=== PATIENT | male | born 1960 | race Caucasian/White ===

== ENCOUNTER 2017-05-16 13:24 | Emergency (ER) | payer OTHER ==
[~2017-05-16] VITALS: Ht 172.7 cm; Wt 98.0 kg
[~2017-05-16 13:24] MED LIST: ESCI1TAB10 PO; FOLI1TAB8 PO; GLIP5TAB3 PO; LPR25 PO; MAGN400T24 PO; METF1000 PO; OMEP20TA PO; TAMS0.4C59 PO; THIA100T10 PO
[2017-05-16 13:27] VITALS: TEMP 36.4; Ht 172.7 cm; Wt 98.0 kg
--- NOTE | 2017-05-16 14:35 | DIAGNOSTIC IMAGING REPORT ---
L-SPINE MIN 4 VIEWS ROUTINE CLINICAL HISTORY: LEFT LOW BACK, BUTTOCK, HIP PAIN, THIGH NUMB COMPARISON STUDY: No previous studies for comparison. FINDINGS: There is a mild spinal curvature convex to the left. There are bilateral total hip arthroplasties. No acute fractures or traumatic subluxations are visualized. There are moderately advanced degenerative changes in the lower thoracic spine and thoracal lumbar junction. Mild degenerative changes are present within the mid to lower lumbar spine. No destructive lesions are evident. IMPRESSION: 1. No acute fractures or traumatic subluxations 2. Degenerative changes Electronically signed by: Khalif Santiago M.D. 05/16/2017 2:34 PM Dictated Date/Time: 05/16/2017 2:32 PM
--- NOTE | 2017-05-16 14:36 | DIAGNOSTIC IMAGING REPORT ---
L PELVIS/UNILATERAL HIP 2-3VIEWS HISTORY: 57 years-old Male LEFT HIP/THIGH PAIN, S/P SANTOS acute left hip pain COMPARISON: CT abdomen and pelvis 05/23/2013 TECHNIQUE: AP view of the pelvis with 2 views of the left hip FINDINGS: The bony pelvis appears intact without pelvic ring fracture identified. Dystrophic appearing calcifications involve the ischial tuberosities bilaterally at the hamstring attachment sites. Bilateral total hip arthroplasties are in place with associated periarticular heterotopic ossifications. No evidence of hardware complication or malalignment. No acute fracture or subluxation is identified. IMPRESSION: Bilateral total hip arthroplasties in place without evidence of hardware complication, acute bony fracture or subluxation. The above report was generated using voice recognition software. It may contain grammatical, syntax or spelling errors. Electronically signed by: Jun Field M.D. 05/16/2017 2:34 PM Dictated Date/Time: 05/16/2017 2:31 PM
[2017-05-16] MEDS ORDERED: LISI-725 PO (15:10)
[2017-05-16] MEDS ORDERED: PRED20TA PO (15:17)
--- NOTE | 2017-05-16 15:18 | EMERGENCY ROOM VISIT NOTE ---
ED Visit Note First contact with patient: 13:33 CHIEF COMPLAINT: Left low back and hip pain 6 months, worse times one week HISTORY OF PRESENT ILLNESS: Patient is a 57-year-old white male who presents to the emergency department for evaluation of left low back and hip pain. He's had symptoms for about 6 months, but been worse in the last week. He is status post bilateral total hip arthroplasties performed a [address] Banda[address] He has had no problems with the hips until the left hip began to bother him about 6 months ago. He reports that he has been limping , and has had to start using a cane. He notes a sharp pain in his left low back, and lateral aspect of his left hip. It is particularly noticeable with position changes, like standing and sitting. He has difficulty getting comfortable, and has a hard time getting up and moving after he has been stationary for some time. He also notes numbness in the top of his left thigh, that does not extend below the knee. He denies any tingling or weakness into the lower aspect of the leg. He denies any pain in his left buttocks or pain that runs posterior leads down the left leg. He denies any left groin pain. He denies any bowel or bladder incontinence. He does report a history of chronic pain due to gout/OA/RA. He has been on Vicodin 10/325 mg tablets 4 times daily for over 10 years. This is prescribed by his primary care provider. He stopped this medication about 2 weeks ago because he felt like "it wasn't helping." He has tried taking just regular Tylenol for his hip pain without relief. He tried ice and positioning himself with pillows. He has been told in the past that he should not take NSAIDs as he has a history of acute renal failure which was attributed, in part, to NSAID use. Patient denies any injury or any unusual activity before the onset of the pain. He rates his discomfort a 4/10 presently. REVIEW OF SYSTEMS: Review of systems as per HPI. All other systems reviewed were negative. 10 systems reviewed. PMH: Electronic medical records are reviewed and summarized as above/below. See Problem List. SOCIAL HISTORY: Patient lives at home. Smoker. Disabled. PHYSICAL EXAM: Vital Signs: Reviewed Nurse's notes. CONSTITUTIONAL: Patient is is a well-appearing 57-year-old white male who is awake and alert and in no acute distress. He ambulates with a slightly waddling , antalgic gait. INTEGUMENTARY: No lesions or rash, normal skin turgor. LYMPH: No lymphadenopathy. SPINE: Examination of the patient's back does not demonstrate any ecchymosis, abrasions or outward signs of trauma. No erythema, increased warmth or induration. Patient has midline discomfort to palpation over the low lumbar spine, primarily on the left, which does produce pain in the left low back and lateral aspect of the left hip. There is no pain over the SI joint or the sciatic notch. He has increased pain with range of motion including rotation and flexion. EXTREMITIES: Leg lengths are symmetrical. Well-healed surgical scars noted over the lateral aspect of the hips bilaterally. Negative logroll bilaterally. Normal strength including dorsi-flexion and plantar flexion of the great toes and ankles and flexion and extension of the knees and flexion of the hips. Negative bilateral straight leg raise testing. Lower extremity DTRs are equal and symmetrical bilaterally. Distal pulses are easily palpable. Sensation light touch is intact over the lower extremities bilaterally. EMERGENCY DEPARTMENT COURSE: The patient was seen and evaluated as above. Old records were reviewed. Lumbar spine, AP pelvis and left hip x-rays were obtained. He has mild arthritic changes of the lumbar spine without any acute pathology, left hip and AP pelvis demonstrate postsurgical changes, without evidence for acute fracture or hardware compromise. X-ray findings were reviewed with the patient. His exam appears more consistent with a lumbar radiculopathy, rather than being related to his hip or his prosthesis. His exam was not consistent with a trochanteric bursitis. Possibility of loosening of the hardware was entertained. He does not appear to have any infectious findings at this time. The patient has been on narcotics chronically for many years, he had stopped these about 2 weeks ago as he did not feel that they were helping with his chronic pain. He has been told that he should not use any NSAID medications due to his history of renal failure. He has used prednisone in the past, and states that it has been fairly efficacious. He would like to try this, which is reasonable, and I have discussed that he should check his blood sugars more frequently and monitored very closely while on the prednisone due to the potential for hyperglycemia. He expressed understanding of this and was agreeable. He will need close follow -up with his PCP and with his orthopedic surgeon for further care and evaluation. He certainly does not have any physical exam findings at this time that are suspicious for acute cord compression, cauda equina syndrome, epidural abscess or hematoma. He was discharged home with family in stable condition. Patient was reviewed with attending physician who also independently evaluated the patient. Medication reconciliation: I attest that I have personally reviewed the patient' s current medication list. Blood pressure screening: Patient was found to have a slightly elevated blood pressure due to circumstances. I do not believe that the patient requires hypertension monitoring. Patient was reviewed in the [facility] Prescription Drug Monitoring Program. He has received monthly supplies of Toone 10 mg tablets as he discussed, last prescription was filled in the beginning of April. L-SPINE MIN 4 VIEWS ROUTINE CLINICAL HISTORY: LEFT LOW BACK, BUTTOCK, HIP PAIN, THIGH NUMB COMPARISON STUDY: No previous studies for comparison. FINDINGS: There is a mild spinal curvature convex to the left. There are bilateral total hip arthroplasties. No acute fractures or traumatic subluxations are visualized. There are moderately advanced degenerative changes in the lower thoracic spine and thoracal lumbar junction. Mild degenerative changes are present within the mid to lower lumbar spine. No destructive lesions are evident. IMPRESSION: 1. No acute fractures or traumatic subluxations 2. Degenerative changes L PELVIS/UNILATERAL HIP 2-3VIEWS HISTORY: 57 years-old Male LEFT HIP/THIGH PAIN, S/P SANTOS acute left hip pain COMPARISON: CT abdomen and pelvis 05/23/2013 TECHNIQUE: AP view of the pelvis with 2 views of the left hip FINDINGS: The bony pelvis appears intact without pelvic ring fracture identified. Dystrophic appearing calcifications involve the ischial tuberosities bilaterally at the hamstring attachment sites. Bilateral total hip arthroplasties are in place with associated periarticular heterotopic ossifications. No evidence of hardware complication or malalignment. No acute fracture or subluxation is identified. IMPRESSION: Bilateral total hip arthroplasties in place without evidence of hardware complication, acute bony fracture or subluxation. Problem List Medical Problems: (1) Acute renal failure Status: Resolved (2) Arthritis Status: Chronic (3) Chronic pain syndrome Status: Chronic (4) Dehydration Status: Resolved (5) Depressive Disorder Nec Status: Chronic (6) Diabetes Status: Chronic (7) Diabetes Status: Resolved (8) GERD (gastroesophageal reflux disease) Status: Chronic (9) Gout Status: Chronic (10) Hypertension Status: Chronic (11) Hypoglycemia Status: Resolved (12) Intractable vomiting Status: Resolved (13) MRSA infection Status: Resolved (14) Rheumatoid Arthritis Status: Chronic Surgical Problems: (1) Hip Joint Replacement Status Status: Resolved Social History Problems: (1) Alcoholism Status: Resolved Current/Historical Medications Scheduled Escitalopram Oxalate (Lexapro), 20 MG PO DAILY Glipizide (Glucotrol), 5 MG PO BID Lisinopril (Zestril), 20 MG PO DAILY Metformin Hcl (Glucophage), 1,000 MG PO BID Omeprazole (Omeprazole), 20 MG PO DAILY Prednisone (Prednisone), 0 PO DAILY Allergies Coded Allergies: Morphine (Verified Adverse Reaction, Severe, PT BECOMES VERY CONFUSED, 05/16) Vital Signs Date Time Temp Pulse Resp B/P (MAP) Pulse Ox O2 Delivery O2 Flow Rate FiO2 05/16/17 15:54 77 16 148/89 97 05/16/17 13:27 36.4 89 18 150/95 96 Room Air Departure Information Impression Primary Impression: Left low back pain Additional Impression: Left hip pain Prescriptions Prednisone (Prednisone) 20 Mg Tab 0 PO DAILY, #18 TAB 3 DAILY FOR 3 DAYS, THEN 2 DAILY FOR 3 DAYS, THEN 1 DAILY FOR 3 DAYS. Prov: Yakelin Burgess PA 05/16/17 Referrals No Doctor, Assigned (PCP) Patient Instructions My [facility] Additional Instructions Prednisone: Once daily as instructed until the prescription is finished. It is best to take this earlier in the day as some patients note occasional difficulty falling asleep when taken in the late evening. Monitor your blood sugars closely while taking this medication. Acetaminophen(Tylenol) may be used for fever or pain. Use 1000mg every six hours as needed. Avoid using more than 3000mg in a 24 hour period. This medication can be taken if you need to drive, work, or perform activities which may be dangerous when taking narcotic pain medication. Ice compresses for 20 minutes at a time four times daily for 2-3 days. Use the your cane as needed. Rest and elevate your injury. Continue current medications. Return to the ER immediately for any numbness, tingling, severe pain, extreme swelling in the extremity or as needed. Follow-up with your primary care physician for further care and evaluation. You may require evaluation by a back specialist. Follow-up with your orthopedic surgeon for reassessment of your left hip pain and your hip replacement. Problem Qualifiers
--- NOTE | 2017-05-16 15:20 | EMERGENCY ROOM VISIT NOTE ---
ED Visit Note First contact with patient: 13:33 I did evaluate and examine this patient myself. I did guide management for the patient. I agree with the APC's assessment as discussed. Please see the APC's dictation for further details. I did independently review the x-rays. The patient is presenting with pain in his lower back pain to his head. There is no evidence of fracture or acute abnormality on hip radiograph. His symptoms seem consistent with radicular pain. He was advised follow closely with his orthopedic doctor and discharged with a prescription for prednisone. He will be sure to check his sugars regularly.
[2017-05-16 15:54] VITALS: BP 148/89; PULSE 77; O2SAT 97
[2017-11-18] MEDS ORDERED: INSU70IN2 SC ×2 (13:04)
[2017-11-18] MEDS ORDERED: DXY100 PO (13:04)
== END 2017-05-16 15:48 | disposition home or self-care (01) ==
LOC: C.EDB 13:26 → C.EDC 15:48
DX: M54.5 Low back pain (principal); M25.552 Pain in left hip; G89.4 Chronic pain syndrome; F17.200 Nicotine dependence, unspecified, uncomplicated; F32.9 Major depressive disorder, single episode, unspecified; E11.9 Type 2 diabetes mellitus without complications; K21.9 Gastro-esophageal reflux disease without esophagitis; I10 Essential (primary) hypertension; M06.9 Rheumatoid arthritis, unspecified; Z96.643 Presence of artificial hip joint, bilateral; Z79.84 Long term (current) use of oral hypoglycemic drugs

== ENCOUNTER 2018-06-24 10:08 | Inpatient (IN) ==
[2018-06-24] MEDS ORDERED: ASPIRIN CHEW 324 MG PO STA (10:34)
[2018-06-24] MEDS ORDERED: LISINOPRIL 20 MG TAB PO STA (10:34)
[2018-06-24] MEDS ORDERED: NITROGLYCERIN 2% OINTMENT 30GM TUBE EXT STA (10:34)
[2018-06-24] MEDS ORDERED: SODIUM CHLORIDE 0.9% 500 ML IV SCH (10:45)
[2018-06-24] MEDS ORDERED: LISINOPRIL 5 MG TAB PO ONE (10:49)
--- NOTE | 2018-06-24 10:57 | XRay Report ---
XR chest 1V portable HISTORY: Atypical Chest Pain COMPARISON: Chest 11/15/2017. FINDINGS: No pneumothorax. No pleural effusions. The lungs are clear. The heart is top normal in size . Old, healed right anterior rib fractures. IMPRESSION: No acute process. Electronically signed by: Demarco Luna M.D. 06/24/2018 10:56 AM
[2018-06-24 11:08] LABS: Basophils # (auto) 0.03 K/uL (0-0.2); Basophils % (auto) 0.4 %; Eosinophils # (auto) 0.11 K/uL (0-0.5); Eosinophils % (auto) 1.3 %; Hematocrit (blood only) 39.2 % (42-52); Hemoglobin 13.4 g/dL (14.0-18.0); Immature Granulocytes # (auto) 0.09 K/uL (0.00-0.02); Immature Granulocytes % (auto) 1.1 %; Lymphocytes # (auto) 1.71 K/uL (1.2-3.4); Lymphocytes % (auto) 20.8 %; Mean Corpuscular Hgb Conc 34.2 g/dL (32-36); Mean Corpuscular Volume 86.2 fL (80-100); Mean Platelet Volume 10.9 fL (7.4-10.4); Monocytes % (auto) 8.5 %; Neutrophils # (auto) 5.57 K/uL (1.4-6.5); Neutrophils % (auto) 67.9 %; Platelet Count 228 K/uL (130-400); RDW Coefficient of Variation 15.1 % (11.5-14.5); RDW Standard Deviation 47.3 fL (36.4-46.3); Red Blood Count 4.55 M/uL (4.7-6.1); White Blood Count 8.21 K/uL (4.8-10.8)
[2018-06-24 11:19] LABS: INR 0.9 (0.9-1.1); Partial Thromboplastin Ratio 0.8; Partial Thromboplastin Time 20.3 Seconds (21.0-31.0); Prothrombin Time 9.4 Seconds (9.0-12.0)
[2018-06-24 11:23] LABS: Alanine Aminotransferase 35 U/L (12-78); Albumin Level 3.5 gm/dl (3.4-5.0); Aspartate Aminotransferase 25 U/L (15-37); BUN Creatinine Ratio 12.1 (10-20); Blood Urea Nitrogen 16 mg/dl (7-18); Carbon Dioxide 20 mmol/L (21-32); Chloride 107 mmol/L (98-107); Creatinine Clr Calc Pharmacy 69.9 ml/min; Est GFR (African American) 66.7; Est GFR (Non-African American) 57.6; Glucose 250 mg/dl (70-99); Magnesium 1.5 mg/dl (1.8-2.4); Sodium 137 mmol/L (136-145)
[2018-06-24] MEDS ORDERED: MAGNESIUM OXIDE 400 MG TAB PO STA (11:27)
[2018-06-24 11:28] LABS: Alkaline Phosphatase 104 U/L (45-117); Bilirubin,Total 0.2 mg/dl (0.2-1); Globulin 3.4 gm/dl (2.5-4.0); Total Protein 6.9 gm/dl (6.4-8.2); Troponin I < 0.015 ng/ml (0-0.045)
--- NOTE | 2018-06-24 13:47 | History & Physical Report ---
Addendum entered and electronically signed by Carrie Kelley PA-C 14:32: Addendum (Blank) Addendum June 24, 2018 14:31 Addendum: D-Dimer elevated Will order CT per PE protocol and bilateral lower ext dopplers r/o DVT/PE Original Note: Date of Service June 24, 2018 Assessment & Plan (1) Atypical chest pain: In ED cardiac workup revealed troponin within normal limits and ECG without changes. He was hypertensive and placed on Nitropaste which improved pressure systolically to 150s He received 1 L IV fluid, ASA 324 mg, lisinopril 20 mg x1, Mag-Ox 80 mg p.o. Chest discomfort still present, described as "fatigue." We will admit for further cardiac workup to rule out ACS ddx including but not limited to: ACS, stable angina, PE, pleurisy, MSK, PUD -admit to med/surg telemetry -consult cardiology given atypical chest pain with cardiac risk factors: T2DM, tobacco abuse, HTN -trend cardiac markers -check D-Dimer r/o PE -echocardiogram -continue nitropaste for now -initiate ASA 81mg daily -will make NPO after midnight in event stress test performed -a1c, lipid panel in a.m. (2) Hypomagnesemia: -repleted with 800 of mag oxide orally -repeat mag levels in a.m. (3) DM type 2 (diabetes mellitus, type 2): -unknown A1C, will obtain in a.m. -spoke with glycemic pharmacist for recommendations -he took 70/30 this a.m. 65 units -will place on Lantus 45 Q12hr units per protocol and novolog sliding scale per protocol -adjust accordingly -on JAYLIN for renal protection (4) HTN (hypertension): -blood pressure elevated on admission -prescribed lisinopril 40mg daily; however he has cut in half to 20mg because he feels it makes him lightheaded -Is not always compliant -continue lisinopril for now and monitor (5) COPD (chronic obstructive pulmonary disease): -current no acute exacerbation -no taking any ICS or LABAS (6) Depression: -continue zoloft (7) Tobacco abuse: -currently + chewing tobacco, has quit smoking 6 months ago -nicoderm patch -encourage tobacco cessation (8) DVT prophylaxis: -heparin 5,000 units SQ Q8hr Disposition: D/C to home when able Follow up: PCP upon discharge Patient was seen in collaboration with Dr. Ray, please see addendum Starting 06/25/18 patient will be followed by Dr. Renteria History of Present Illness Chief Complaint: Chest pain x 2-3 weeks. Primary Care Provider: Shlomo Sorto PA-C This is a 58 year old male with significant past medical history of T2DM, HTN, COPD, depression, rheumatoid arthritis, tobacco abuse, history of EtOH abuse in past, history of MRSA bacteremia secondary to OM of spine who presents to [facility] ED secondary to left sided chest pain times 2-3 weeks. 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 He denies recent illness, f/c/s, dizziness, lightheaded, hemoptysis, MCANIR, n/v/d, abdominal pain, dysuria, hematuria, increased urg/freq with urination. Denies hx of CAD or FH of CAD. +Personal history of PE when hospitalized for bacteremia /OM. He was treated with Anticoagulation at time but currently does not take. States he is not always compliant with medication. He checks his bsg when he feels like it. BSG ranges from 60-180s, feels it is better on insulin regimen. Allergies Allergy/AdvReac Type Severity Reaction Status Date / Time morphine AdvReac Severe PT BECOMES Verified 06/24/18 12:17 VERY CONFUSED Home Medications Home Medications Medication Instructions Recorded Confirmed Type insulin NPH and regular human 65 units SUBCUT BID 06/24/18 06/24/18 History [Novolin 70/30 U-100 Insulin] lisinopril 20 mg PO DAILY 06/24/18 06/24/18 History metformin 1,000 mg PO BID 06/24/18 06/24/18 History sertraline 100 mg PO DAILY 06/24/18 06/24/18 History Past Med/Surg History Medical History History of pulmonary embolism when hospitalized for bacteremia and OM Rheumatoid arthritis Tobacco abuse COPD (chronic obstructive pulmonary disease) DM type 2 (diabetes mellitus, type 2) (Chronic) Depression (Chronic) Osteoarthritis (Chronic) MRSA bacteremia (Resolved) Hypertension (Chronic) GERD (gastroesophageal reflux disease) (Chronic) Surgical History History of shoulder surgery Right x 2 History of right hip replacement (Chronic) History of left hip replacement (Chronic) Family History Father Diabetes Lung disease emphysema Mother HTN (hypertension) Social History marital status: Current Living Situation: Alone current occupational status: disabled Other Information That Helps Us Care for You: No Feels Safe at Home: Yes Safety Concerns: Feels Safe At This Time Smoking Status: Current every day smoker Tobacco Type: cigarettes Cigarettes per Day: 25-30pack history Do You Dip or Chew Tobacco: Yes Smoking End Date: Quit smoking approx 6 months ago Second Hand Exposure: No Tobacco Cessation Education Requested by Patient: No Hx Alcohol Use: Yes Alcohol Intake Frequency: a few times a week Alcohol Intake Frequency Comment: 4 beers a week Hx Substance Use: No Beliefs That Will Affect Care: None Preferred Language: Bahraini Communication Ability: Effective Cigar Tobacco Processing Supervisor Required: No Review of Systems All systems reviewed & are unremarkable except as noted in HPI & below Physical Exam 2 Vital Signs (Past 24 Hours): Last Vital Signs Temp 36.3 C L 06/24/18 10:11 Pulse 93 H 06/24/18 12:28 Resp 20 06/24/18 12:28 BP 152/90 H 06/24/18 12:28 Pulse Ox 98 06/24/18 12:28 Physical Exam: Gen: WD/WN, M, unkempt in appearance, NAD, sitting up in bed, pleasant, conversing easily Head: Normocephalic, Atraumatic Eyes: Sclera normal, no conjunctival injection, PERRLA, EOMI ENT: Gross hearing intact, normal pharynx, mucous membranes moist Neck: supple, no adenopathy, No JVD, no bruit, Resp: Clear to auscultation b/l, no wheeze, rales, rhonchi. Pain reproduced with inspiration, Normal insp/exp effort, no accessory muscle use CV: Regular rate, regular rhythm, 1/6 HAKEEM noted cardiac base, no rub, gallop, or ectopy Abd: +BS x 4, soft, nontender, nondistended Musculoskeletal: moves extremities active rom x 4, strength intact, good back shoe cutter strength Extremities:trace edema bilaterally Skin: warm, moist, no rash, negative turgor, cap refill < 2sec, nail beds stained with grease Neuro: Alert and oriented x 3, speech normal, good mood/affect, cran nerve 2-12 intact grossly : deferred Results & Data Laboratory Results Short CBC 06/24/18 06/24/18 Range/Units 10:50 10:50 WBC 8.21 (4.8-10.8) K/uL Hgb 13.4 L (14.0-18.0) g/dL Hct 39.2 L (42-52) % Plt Count 228 (130-400) K/uL Glucose 250 H (70-99) mg/dl BMP 06/24/18 10:50 Sodium 137 Potassium 4.0 Chloride 107 Carbon Dioxide 20 L BUN 16 Creatinine 1.34 Glucose 250 H Calcium 8.0 L Cardiac Enzymes 06/24/18 Range/Units 10:50 Troponin I < 0.015 (0-0.045) ng/ml Liver Function 06/24/18 Range/Units 10:50 Total Bilirubin 0.2 (0.2-1) mg/dl AST 25 (15-37) U/L ALT 35 (12-78) U/L Alkaline Phosphatase 104 (45-117) U/L Albumin 3.5 (3.4-5.0) gm/dl Diagnostic Findings CXR: IMPRESSION: No acute process. ECG Rhythm: normal sinus Findings: + 1st degree AV block Additional Comments: AK 218 ms QTC 4435ms Code Status & VTE Plan Code Status Full Code VTE Prophylaxis Plan VTE Prophylaxis will be ordered: Yes Supervising Physician Co-Signing Physician Notes HISTORY: Record reviewed. Patient interviewed and examined. Care coordinated with Carrie Kelley PA-C. Please refer to her documentation for patient's history. Briefly, 58 YO male with history of hypertension, DM, tobacco use, and pulmonary embolism. Experienced chest pain today while working on his truck. Pain radiated down his left arm and was associated with diaphoresis. Has had similar pain in the past, not clearly related to activity or meals. EXAM: General- no distress Lungs- diffuse mild wheezing; no respiratory distress Cardiovascular- RRR; no murmur; no gallop; no JVD; no pretibial edema Abdomen- + bowel sounds, soft, nontender Extremities- no cyanosis; no calf tenderness Neuro- alert, oriented Skin- warm & dry DATA: D-dimer 970. Random glucose 250. Mg 1.5. Trop < 0.015. Other lab studies as noted. Chest x-ray was unremarkable. CTA chest negative for PE. Venous duplex lower extremities negative for DVT. EKG performed at 1027 reviewed and demonstrated NSR at 90 / minute, first degree AV block, no acute changes. ASSESSMENT AND PLAN: Atypical chest pain, but multiple risk factors. History of PE, but acute PE ruled out. Check serial troponins. Consult Cardiology. Please refer to CONI Kelley's documentation for discussion of other issues. 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
[2018-06-24] MEDS ORDERED: INFLUENZA VIRUS QUAD VACCINE 0.5 ML SYR IM ONE (14:15)
[2018-06-24] MEDS ORDERED: INFLUENZA ADMINISTRATION CHARGE ONE (14:15)
[2018-06-24] MEDS ORDERED: ONDANSETRON INJ 2 MG/ML 2 ML VIAL IV PRN (14:27)
[2018-06-24] MEDS ORDERED: POLYETHYLENE (MIRALAX) 17 GM PACK PO PRN (14:27)
[2018-06-24] MEDS ORDERED: GLUCAGON FOR INJ 1 MG VIAL SQ PRN (14:27)
[2018-06-24] MEDS ORDERED: CARBOHYDRATES FOR HYPOGLYCEMIA PO PRN (14:27)
[2018-06-24] MEDS ORDERED: GLUCOSE 10 TABS/TUBE PO PRN (14:27)
[2018-06-24] MEDS ORDERED: ALUMINUM/MAGNESIUM SUSP 30 ML UDC PO PRN (14:27)
[2018-06-24] MEDS ORDERED: GLUCOSE 40% GEL 15 GM TUBE PO PRN (14:27)
[2018-06-24] MEDS ORDERED: MAGNESIUM HYDROXIDE SUSP 30 ML UDC PO PRN (14:27)
[2018-06-24] MEDS ORDERED: DEXTROSE 50% 50 ML SYRINGE IV PRN (14:27)
--- NOTE | 2018-06-24 15:30 | Consultation Report ---
DATE OF CONSULTATION: 06/24/2018 INPATIENT CARDIOLOGY CONSULTATION CONSULTATION REQUESTED BY: Carrie Kelley PA-C REASON FOR CONSULTATION: Chest pain. HISTORY OF PRESENT ILLNESS: Mr. Cabrera is a very pleasant 58-year-old gentleman who presented to [facility] Emergency Department on 06/24/2018 with complaints of chest pain. The patient states his pain has been going on for 2 weeks. He notices that 1 day he just woke up with it. He states it has been constant, but the pain can range anywhere from a dull ache to a sharp stabbing pain. It remains right underneath his left breast and can radiate parallel over to his left axilla. He states it is worse with motion and he has not found any alleviating factors. He denies any associated symptoms, specifically denied any associated shortness of breath, diaphoresis, nausea, lightheadedness, dizziness, or syncope. 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 He was lying on his back underneath the truck working above his head. When the pain significantly worsened, he became diaphoretic and came into the Emergency Department. Currently, he states the pain is still present at this time and qualifies as a dull toothache almost like pain. He denies any previous similar episodes. PAST SURGICAL HISTORY: 1. Total hip replacement. 2. Port placement. 3. Shoulder surgery x2. MEDICAL ILLNESSES: 1. Diabetes. 2. Hypertension. 3. Medical noncompliance. 4. Dyslipidemia. 5. History of alcohol abuse. 6. History of tobacco abuse. 7. Rheumatoid arthritis. 8. MRSA bacteremia, secondary to osteomyelitis of the spine. 9. COPD. 10. Depression. FAMILY HISTORY: Denies any premature coronary artery disease or sudden cardiac . SOCIAL HISTORY: Daily smoker, drinks a few beers a week. Denies any recreational drug use. He is . 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 REVIEW OF SYSTEMS: As per HPI. All other review of systems reviewed and negative at this time. ALLERGIES: MORPHINE. MEDICATIONS AN OUTPATIENT: 1. Lisinopril 20 mg daily. 2. 70/30 insulin. 3. Metformin. 4. Sertraline. PHYSICAL EXAMINATION: VITALS: Temperature 36.3, pulse 99, respiratory rate 12, blood pressure 139/84. GENERAL: Awake, alert, oriented x3, in no acute distress. HEENT: Normocephalic, atraumatic. Pupils equal, round, reactive to light and accommodation. Extraocular muscles intact. Anicteric sclerae. Moist mucous membranes. NECK: No JVD, no bruit. CARDIOVASCULAR: Regular. No S4. Normal S1 and S2. No S3. No murmurs, rubs or gallops. PULMONARY: Clear to auscultation bilaterally. No rales, rhonchi, or wheezing. ABDOMEN: Bowel sounds x4, soft. No rebound, guarding, tenderness. No organomegaly. EXTREMITIES: No clubbing, cyanosis or edema. +2 pedal pulse bilaterally. SKIN: Warm and dry. IMAGING DATA: A 12-lead EKG performed in the Emergency Department independently reviewed at this time shows normal sinus rhythm at 90 beats per minute, first-degree AV block, normal axis, no signs of active ischemia, essentially normal study. LABORATORY STUDIES OF SIGNIFICANCE: D-dimer elevated at 970. Sodium 137, potassium 4, BUN 16, creatinine 1.3. Troponin negative x1. IMPRESSION: 1. Atypical chest pain. 2. Positive D-dimer. 3. Diabetes. 4. History of medical noncompliance. 5. Hypertension. 6. History of MRSA bacteremia. RECOMMENDATIONS: It is my pleasure to see Mr. Cabrera in consultation today. From a cardiac standpoint, his pain does not appear to be ischemic in nature given the fact it is worse with motion and activity. His D-dimer is elevated and he is scheduled for a CTA to rule out PE, he was also scheduled to have an echocardiogram to rule out any pericardial disease, but again I believe that is less likely and should the above studies come back unremarkable, then I will ask physical therapy to evaluate him for some possible stretching maneuvers to help alleviate the intercostal pain.
--- NOTE | 2018-06-24 15:41 | Emergency Department Note ---
Entered by Alma Bailey acting as a scribe for Biju Tripp MD History of Present Illness General Chief complaint: Chest Pain Stated complaint: CHEST PAIN Time Seen by Provider: 06/24/18 10:26 Source: patient History of Present Illness Onset (ago): week(s) 2 Location: chest Pain Consistency: + constant Maximum Pain Intensity: 5 Quality: + aching Exacerbated By: + movement (exertion) and + other (lying on left side) Associated symptoms: + diaphoresis and + shortness of breath; no cough, no fever /chills (fever) and no nausea/vomiting The patient is a 58 year old male who presents to the Emergency Room with complaints of constant chest pain starting 2 weeks ago. The patient states that the pain is on the left side and is achy. He states that at first he thought it was a pulled muscle, but it has been present for 2 weeks and hasnt gotten better. He notes that it intermittently gets worse as well. He notes that lying on his left side and exertion makes the pain worse. He notes that the episodes of worsening pain last an hour and have been getting closer together. 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 The patient complains of intermittent shortness of breath and diaphoresis with the worsening pain. He notes that he has a history of hypertension and diabetes, but he has not been taking his blood pressure medication (Lisinopril) because he has just stopped caring. He has been taking his insulin. He notes that his last stress test was 3 -4 years ago. The patient denies a fever, cough, nausea, and vomiting. Home Medications Home Medications Medication Instructions Recorded Confirmed Type insulin NPH and regular human 65 units SUBCUT BID 06/24/18 06/24/18 History [Novolin 70/30 U-100 Insulin] lisinopril 20 mg PO DAILY 06/24/18 06/24/18 History metformin 1,000 mg PO BID 06/24/18 06/24/18 History sertraline 100 mg PO DAILY 06/24/18 06/24/18 History Allergies Allergy/AdvReac Type Severity Reaction Status Date / Time morphine AdvReac Severe PT BECOMES Verified 06/24/18 12:17 VERY CONFUSED Past Med/Surg History Medical History History of pulmonary embolism when hospitalized for bacteremia and OM Rheumatoid arthritis Tobacco abuse COPD (chronic obstructive pulmonary disease) DM type 2 (diabetes mellitus, type 2) (Chronic) Depression (Chronic) Osteoarthritis (Chronic) MRSA bacteremia (Resolved) Hypertension (Chronic) GERD (gastroesophageal reflux disease) (Chronic) Surgical History History of shoulder surgery Right x 2 History of right hip replacement (Chronic) History of left hip replacement (Chronic) Family History Father Diabetes Lung disease emphysema Mother HTN (hypertension) Social History marital status: Current Living Situation: Alone current occupational status: disabled Other Information That Helps Us Care for You: No Feels Safe at Home: Yes Safety Concerns: Feels Safe At This Time Smoking Status: Current every day smoker Tobacco Type: cigarettes Cigarettes per Day: 25-30pack history Do You Dip or Chew Tobacco: Yes Smoking End Date: Quit smoking approx 6 months ago Second Hand Exposure: No Tobacco Cessation Education Requested by Patient: No Hx Alcohol Use: Yes Alcohol Intake Frequency: a few times a week Alcohol Intake Frequency Comment: 4 beers a week Hx Substance Use: No Beliefs That Will Affect Care: None Preferred Language: Yi Communication Ability: Effective Director Of Catering Required: No Review of Systems See HPI for pertinent positives & negatives. and A total of 10 systems reviewed and were otherwise negative Physical Exam Vital Signs Vital Signs - 24 hr 06/24/18 10:11 06/24/18 10:32 06/24/18 10:52 Temperature 36.3 C L Temperature Source Oral Sepsis Recent Fever Within 48 Hours No Sepsis New/Unexplained Change in Mental Status No Sepsis Action Taken by Nursing No Action Required Pulse Rate 98 H 98 H Pulse Rate [Apical] 93 H Pulse Rhythm Regular Pulse Rhythm [Apical] Regular Pulse Strength [Apical] Normal Respiratory Rate 18 20 20 Respiratory Effort / Characteristics Non-Labored Spontaneous Non-Labored Respiratory Depth Normal Normal Respiratory Pattern Regular Regular Blood Pressure 154/95 H Blood Pressure [Left Arm] Blood Pressure [Right Arm] 173/97 H Blood Pressure Mean 114 Blood Pressure Mean [Left Arm] Blood Pressure Mean [Right Arm] 122 Blood Pressure Position [Left Arm] Pulse Oximetry 98 98 98 Oxygen Delivery Method Room Air Room Air Room Air 06/24/18 12:28 06/24/18 14:02 06/24/18 14:09 Temperature Temperature Source Sepsis Recent Fever Within 48 Hours Sepsis New/Unexplained Change in Mental Status Sepsis Action Taken by Nursing Pulse Rate 93 H 99 H 99 H Pulse Rate [Apical] Pulse Rhythm Pulse Rhythm [Apical] Pulse Strength [Apical] Respiratory Rate 20 16 16 Respiratory Effort / Characteristics Respiratory Depth Respiratory Pattern Blood Pressure 152/90 H 139/84 139/84 Blood Pressure [Left Arm] Blood Pressure [Right Arm] Blood Pressure Mean 110 102 Blood Pressure Mean [Left Arm] Blood Pressure Mean [Right Arm] Blood Pressure Position [Left Arm] Pulse Oximetry 98 98 98 Oxygen Delivery Method Room Air 06/24/18 17:26 Temperature Temperature Source Sepsis Recent Fever Within 48 Hours Sepsis New/Unexplained Change in Mental Status Sepsis Action Taken by Nursing Pulse Rate Pulse Rate [Apical] 73 Pulse Rhythm Pulse Rhythm [Apical] Regular Pulse Strength [Apical] Normal Respiratory Rate Respiratory Effort / Characteristics Respiratory Depth Respiratory Pattern Blood Pressure Blood Pressure [Left Arm] 149/76 H Blood Pressure [Right Arm] Blood Pressure Mean Blood Pressure Mean [Left Arm] 100 Blood Pressure Mean [Right Arm] Blood Pressure Position [Left Arm] Lying Pulse Oximetry Oxygen Delivery Method GENERAL: Patient is in no acute distress. HEENT: No acute trauma, normocephalic atraumatic, mucous membranes moist, no nasal congestion, no scleral icterus. NECK: No stridor, no adenopathy, no meningismus, trachea is midline. LUNGS: Clear to auscultation bilaterally, no wheeze, no rhonchi, breath sounds equal. HEART: Without murmurs gallops or rubs, regular rate and rhythm. CHEST: Nontender chest wall. ABDOMEN: Soft, nontender, bowel sounds positive, no hernias, no peritonitis. EXTREMITIES: No cyanosis or edema, full range of motion of all the joints without pain or difficulty, no signs for acute trauma. NEUROLOGIC: Oriented x 3, no acute motor or sensory deficits, no focal weakness. SKIN: No rash, no jaundice, no diaphoresis. Course 1027: Past medical records reviewed. The patient was evaluated in room C10, and a complete history and physical examination were performed. 1214: [facility] 1215: I reevaluated the patient and updated him on his test results. I discussed the treatment plan with him. He verbally agrees and understands. 1217: I reviewed the patient's case with ULISES Huerta Hospitalist. She will evaluate the patient for further management. Consultations Consultation #1: I reviewed the patient's case with ULISES Huerta Hospitalist. She will evaluate the patient for further management. Time: 12:17 Administered Medications Acetaminophen (Tylenol) 650 mg PO Q4H PRN PRN Reason: Pain or Fever Stop: 07/24/18 14:26 Last Admin: 06/24/18 17:10 Dose: 650 mg Heparin Sodium (Porcine) (Heparin Sodium (Porcine)) 5,000 units SQ Q8 [facility] Stop: 07/24/18 14:26 Last Admin: 06/24/18 17:11 Dose: 5,000 units Insulin Aspart (Novolog Flexpen) 0 units SC ACHS [facility] Stop: 07/24/18 16:29 Last Admin: 06/24/18 17:14 Dose: 17 units Ioversol (Optiray 320 100ml) 90 ml IV ONCE PRN PRN Reason: Interaction Checking Stop: 06/28/18 16:19 Last Admin: 06/24/18 16:20 Dose: 90 ml Discontinued Medications Aspirin (Aspirin) 324 mg PO NOW STA Stop: 06/24/18 10:35 Last Admin: 06/24/18 10:44 Dose: 324 mg Sodium Chloride (Nss) 500 mls @ 999 mls/hr IV .Q31M [facility] Stop: 06/24/18 11:15 Last Infusion: 06/24/18 11:23 Dose: 0 mls/hr Admin: 06/24/18 10:52 Dose: 999 mls/hr Lisinopril (Zestril) 20 mg PO NOW STA Stop: 06/24/18 10:35 Last Admin: 06/24/18 10:52 Dose: Not Given Lisinopril (Zestril) Confirm Administered Dose 20 mg PO .STK-MED ONE Stop: 06/24/18 10:50 Last Admin: 06/24/18 10:52 Dose: 20 mg Magnesium Oxide (Mag-Ox) 800 mg PO NOW STA Stop: 06/24/18 11:28 Last Admin: 06/24/18 12:29 Dose: 800 mg Nitroglycerin (Nitro-Bid 2%) 1 inch EXT NOW STA Stop: 06/24/18 10:35 Last Admin: 06/24/18 10:44 Dose: 1 inch Medical Decision Making Differential Diagnosis Differential diagnoses include angina, CO, musculoskeletal pain, medical noncompliance, PE, aortic dissection, anemia, pulmonary mass. Medical Records Attestation: I reviewed the patient's medical records. Home Medications Current Medication List: was personally reviewed by me Laboratory Data Attestation: I reviewed the patient's lab results. Result diagrams: 06/24/18 10:50 06/24/18 10:50 Lab Results 06/24/18 06/24/18 06/24/18 Range/Units 10:50 10:50 10:50 WBC 8.21 (4.8-10.8) K/uL RBC 4.55 L (4.7-6.1) M/uL Hgb 13.4 L (14.0-18.0) g/dL Hct 39.2 L (42-52) % MCV 86.2 (80-100) fL MCH 29.5 (25-34) pg MCHC 34.2 (32-36) g/dL RDW Std Deviation 47.3 H (36.4-46.3) fL RDW Coeff of Purvi 15.1 H (11.5-14.5) % Plt Count 228 (130-400) K/uL MPV 10.9 H (7.4-10.4) fL Immature Gran % (Auto) 1.1 % Neut % (Auto) 67.9 % Lymph % (Auto) 20.8 % [place] % (Auto) 8.5 % Eos % (Auto) 1.3 % Baso % (Auto) 0.4 % Immature Gran # (Auto) 0.09 H (0.00-0.02) K/uL Neut # (Auto) 5.57 (1.4-6.5) K/uL Lymph # (Auto) 1.71 (1.2-3.4) K/uL [place] # (Auto) 0.70 H (0.11-0.59) K/uL Eos # (Auto) 0.11 (0-0.5) K/uL Baso # (Auto) 0.03 (0-0.2) K/uL PT 9.4 (9.0-12.0) Seconds INR 0.9 (0.9-1.1) APTT 20.3 L (21.0-31.0) Seconds PTT Ratio 0.8 D-Dimer Sodium (136-145) mmol/L Potassium (3.5-5.1) mmol/L Chloride (98-107) mmol/L Carbon Dioxide (21-32) mmol/L Anion Gap (3-11) BUN (7-18) mg/dl Creatinine (0.6-1.4) mg/dl Est Cr Clr Drug Dosing ml/min Est GFR ( Amer) Est GFR (Non-Af Amer) BUN/Creatinine Ratio (10-20) Glucose (70-99) mg/dl POC Glucose (70-99) Calcium (8.5-10.1) mg/dl Magnesium Cancelled Total Bilirubin (0.2-1) mg/dl AST (15-37) U/L ALT (12-78) U/L Alkaline Phosphatase (45-117) U/L Troponin I (0-0.045) ng/ml Total Protein (6.4-8.2) gm/dl Albumin (3.4-5.0) gm/dl Globulin (2.5-4.0) gm/dl Albumin/Globulin Ratio (0.9-2) Lipase (73-393) U/L Specimen Hemolysis 06/24/18 06/24/18 06/24/18 Range/Units 10:50 10:50 13:51 WBC (4.8-10.8) K/uL RBC (4.7-6.1) M/uL Hgb (14.0-18.0) g/dL Hct (42-52) % MCV (80-100) fL MCH (25-34) pg MCHC (32-36) g/dL RDW Std Deviation (36.4-46.3) fL RDW Coeff of Purvi (11.5-14.5) % Plt Count (130-400) K/uL MPV (7.4-10.4) fL Immature Gran % (Auto) % Neut % (Auto) % Lymph % (Auto) % [place] % (Auto) % Eos % (Auto) % Baso % (Auto) % Immature Gran # (Auto) (0.00-0.02) K/uL Neut # (Auto) (1.4-6.5) K/uL Lymph # (Auto) (1.2-3.4) K/uL [place] # (Auto) (0.11-0.59) K/uL Eos # (Auto) (0-0.5) K/uL Baso # (Auto) (0-0.2) K/uL PT (9.0-12.0) Seconds INR (0.9-1.1) APTT (21.0-31.0) Seconds PTT Ratio D-Dimer Cancelled 970 H* Sodium 137 (136-145) mmol/L Potassium 4.0 (3.5-5.1) mmol/L Chloride 107 (98-107) mmol/L Carbon Dioxide 20 L (21-32) mmol/L Anion Gap 10.0 (3-11) BUN 16 (7-18) mg/dl Creatinine 1.34 (0.6-1.4) mg/dl Est Cr Clr Drug Dosing 69.9 ml/min Est GFR ( Amer) 66.7 Est GFR (Non-Af Amer) 57.6 BUN/Creatinine Ratio 12.1 (10-20) Glucose 250 H (70-99) mg/dl POC Glucose (70-99) Calcium 8.0 L (8.5-10.1) mg/dl Magnesium 1.5 L Total Bilirubin 0.2 (0.2-1) mg/dl AST 25 (15-37) U/L ALT 35 (12-78) U/L Alkaline Phosphatase 104 (45-117) U/L Troponin I < 0.015 (0-0.045) ng/ml Total Protein 6.9 (6.4-8.2) gm/dl Albumin 3.5 (3.4-5.0) gm/dl Globulin 3.4 (2.5-4.0) gm/dl Albumin/Globulin Ratio 1.0 (0.9-2) Lipase 334 (73-393) U/L Specimen Hemolysis 06/24/18 Range/Units 16:38 WBC (4.8-10.8) K/uL RBC (4.7-6.1) M/uL Hgb (14.0-18.0) g/dL Hct (42-52) % MCV (80-100) fL MCH (25-34) pg MCHC (32-36) g/dL RDW Std Deviation (36.4-46.3) fL RDW Coeff of Purvi (11.5-14.5) % Plt Count (130-400) K/uL MPV (7.4-10.4) fL Immature Gran % (Auto) % Neut % (Auto) % Lymph % (Auto) % [place] % (Auto) % Eos % (Auto) % Baso % (Auto) % Immature Gran # (Auto) (0.00-0.02) K/uL Neut # (Auto) (1.4-6.5) K/uL Lymph # (Auto) (1.2-3.4) K/uL [place] # (Auto) (0.11-0.59) K/uL Eos # (Auto) (0-0.5) K/uL Baso # (Auto) (0-0.2) K/uL PT (9.0-12.0) Seconds INR (0.9-1.1) APTT (21.0-31.0) Seconds PTT Ratio D-Dimer Sodium (136-145) mmol/L Potassium (3.5-5.1) mmol/L Chloride (98-107) mmol/L Carbon Dioxide (21-32) mmol/L Anion Gap (3-11) BUN (7-18) mg/dl Creatinine (0.6-1.4) mg/dl Est Cr Clr Drug Dosing ml/min Est GFR ( Amer) Est GFR (Non-Af Amer) BUN/Creatinine Ratio (10-20) Glucose (70-99) mg/dl POC Glucose 165 H (70-99) Calcium (8.5-10.1) mg/dl Magnesium Total Bilirubin (0.2-1) mg/dl AST (15-37) U/L ALT (12-78) U/L Alkaline Phosphatase (45-117) U/L Troponin I (0-0.045) ng/ml Total Protein (6.4-8.2) gm/dl Albumin (3.4-5.0) gm/dl Globulin (2.5-4.0) gm/dl Albumin/Globulin Ratio (0.9-2) Lipase (73-393) U/L Specimen Hemolysis Imaging Data Radiologist's Impression: Radiology results as stated below per my review and the radiologist's interpretation: XR chest 1V portable HISTORY: Atypical Chest Pain COMPARISON: Chest 11/15/2017. FINDINGS: No pneumothorax. No pleural effusions. The lungs are clear. The heart is top normal in size. Old, healed right anterior rib fractures. IMPRESSION: No acute process. Electronically signed by: Demarco Luna M.D. 06/24/2018 10:56 AM ECG Data Attestation: I personally reviewed and interpreted this ECG as follows: Indication: chest pain Rate (beats per minute): 90 Rhythm: sinus rhythm Findings: + 1st degree AV block; no PVC and no ST elevation Blood Pressure Blood Pressure Findings: Elevated blood pressure Blood Pressure Disposition: further management by hospitalist [facility] Narrative There is no leukocytosis. No worrisome anemia. No coagulopathy. No kidney failure. Magnesium was low at 1.5. There was no hepatitis or pancreatitis. EKG shows a sinus rhythm with a first-degree AV block. Cardiac enzyme testing x1 is not consistent with acute cardiac injury. Chest x-ray does not show mediastinal widening, pneumothorax or pneumonia. On exam, the patient's chest pain was not reproducible. The patient presents with chest discomfort which has been occurring for 2 weeks. It is escalating in severity and frequency. It does seem to be exertional chest discomfort most times. The patient was given oral lisinopril for his blood pressure. He was given oral magnesium. He received nitroglycerin paste and oral aspirin. The patient is currently resting fairly comfortably. Given the patient's cardiac risk factors, given his presentation, further cardiac workup was felt warranted. 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 The on-call hospitalist was consulted. The patient is aware of all his findings. Impression & Plan Chest pain, precordial, HTN (hypertension), Noncompliance with medications, Hypomagnesemia Discharge Plan Visit Data *Final* Discharge Date/Time: 06/24/18 14:09 Chief Complaint: Chest Pain Stated Complaint: CHEST PAIN ED Provider: Biju Tripp Discharge Problem: Chest pain, precordial, HTN (hypertension), Noncompliance with medications, Hypomagnesemia Patient Disposition: Admitted As Inpatient Discharge Instructions Interventions: ED Discharge Assessment Last Done: 06/24/18 14:09 The scribe's documentation has been prepared under my direction and personally reviewed by me in its entirety. I confirm that the note above accurately reflects all work, treatment, procedures, and medical decision making performed by me.
--- NOTE | 2018-06-24 16:04 | Ultrasound Report ---
ULTRASOUND BILATERAL LOWER EXTREMITY VENOUS CLINICAL HISTORY: Elevated d-dimer. Atypical chest pain. COMPARISON STUDY: No priors. TECHNIQUE: Real-time, grayscale, and color Doppler sonography of the deep veins of the right and left lower extremity was performed from the inguinal crease to the calf. Compression and augmentation wer e utilized. FINDINGS: There is no sonographic evidence of deep venous thrombosis identified in the right or left lower extremity. The common femoral, superficial femoral, and popliteal veins are patent and normally compressible bilaterally. The greater saphenous vein and the profunda femoris vein at the junction w ith the common femoral vein are clear in both legs. The visualized calf veins are patent bilaterally. IMPRESSION: There is no sonographic evidence of deep venous thrombosis identified in the right or lef t lower extremity. Electronically signed by: Biju Lucero M.D. 06/24/2018 4:03 PM
[2018-06-24] MEDS ORDERED: IOVERSOL 100ml IV PRN (16:20)
--- NOTE | 2018-06-24 16:41 | CT Scan Report ---
CT ANGIOGRAPHY OF THE CHEST, PULMONARY EMBOLUS PROTOCOL CLINICAL HISTORY: Shortness of breath. COMPARISON STUDY: Chest CT January 14, 2013. Chest radiograph June 24, 2018. TECHNIQUE: Following IV administration of 90 mL of Optiray-320, helical axial images of the chest wer e obtained utilizing the pulmonary embolus protocol. Maximal intensity projections and sagittal and coronal reformats were viewed on an independent 3D workstation. IV contrast was administered without complication. Automated exposure control was utilized for the study. A dose lowering technique was utilized adhering to the principles of ALARA. CT DOSE: 620.70 mGy.cm FINDINGS: No pulmonary emboli are identified. There is no thoracic aortic dissection. The size of th e heart is normal. There is no pericardial effusion. There is mild coronary artery calcification. Teresa tral airways are patent. There is no consolidation. No pneumothorax or pleural effusion is noted. A 1 .6 cm lobulated left lower lobe nodule is unchanged since CT of April 05, 2012. A few calcificatio ns within this nodular opacity may be within the airway. This is benign and may reflect a mucoid impa cted bronchus related to the calcifications. IMPRESSION: 1. No pulmonary emboli identified. 2. No acute intrathoracic findings. Electronically signed by: Chin Oliver M.D. 06/24/2018 4:40 PM
[2018-06-24] MEDS: ACETAMINOPHEN 325 MG TAB PO PRN (17:10)
[2018-06-24] MEDS: HEPARIN SOD 5,000 UNIT/0.5 ML VIAL SQ SCH ×2 (17:11→21:43)
[2018-06-24] MEDS: INSULIN ASPART 100 UNITS/ML 3 ML PEN SC SCH ×2 (17:14→20:47)
[2018-06-24] MEDS: NITROGLYCERIN 2% OINTMENT 30GM TUBE EXT SCH (18:01)
[2018-06-24] MEDS: INSULIN GLARGINE SOLOSTAR 100 UNITS/ML 3 ML PEN SC SCH (20:49)
[2018-06-25] MEDS: NITROGLYCERIN 2% OINTMENT 30GM TUBE EXT SCH ×3 (00:07→12:25)
[2018-06-25] MEDS ORDERED: INSULIN ASPART 100 UNITS/ML 3 ML PEN SC SCH (06:00)
[2018-06-25] MEDS: HEPARIN SOD 5,000 UNIT/0.5 ML VIAL SQ SCH ×2 (06:05→14:38)
[2018-06-25 07:12] LABS: Basophils # (auto) 0.03 K/uL (0-0.2); Basophils % (auto) 0.3 %; Eosinophils # (auto) 0.19 K/uL (0-0.5); Eosinophils % (auto) 2.1 %; Hematocrit (blood only) 42.4 % (42-52); Hemoglobin 14.5 g/dL (14.0-18.0); Immature Granulocytes # (auto) 0.11 K/uL (0.00-0.02); Immature Granulocytes % (auto) 1.2 %; Lymphocytes # (auto) 2.16 K/uL (1.2-3.4); Lymphocytes % (auto) 23.6 %; Mean Corpuscular Hgb Conc 34.2 g/dL (32-36); Mean Corpuscular Volume 86.9 fL (80-100); Mean Platelet Volume 10.5 fL (7.4-10.4); Monocytes # (auto) 0.73 K/uL (0.11-0.59); Neutrophils # (auto) 5.93 K/uL (1.4-6.5); Neutrophils % (auto) 64.8 %; Platelet Count 232 K/uL (130-400); RDW Coefficient of Variation 15.4 % (11.5-14.5); RDW Standard Deviation 48.5 fL (36.4-46.3); Red Blood Count 4.88 M/uL (4.7-6.1); White Blood Count 9.15 K/uL (4.8-10.8)
[2018-06-25] MEDS: ACETAMINOPHEN 325 MG TAB PO PRN (07:34)
[2018-06-25 07:47] LABS: Calcium 8.5 mg/dl (8.5-10.1); Creatinine Clr Calc Pharmacy 93.7 ml/min; Est GFR (African American) 95.1; Magnesium 1.8 mg/dl (1.8-2.4)
[2018-06-25 08:00] LABS: Estimated Average Glucose 206 mg/dl
[2018-06-25] MEDS ORDERED: PERFLUTREN LIPID MICROSPHERE (DEFINITY) IV ONE (08:22)
[2018-06-25 08:30] VITALS: TEMP 98.2
[2018-06-25] MEDS: INSULIN GLARGINE SOLOSTAR 100 UNITS/ML 3 ML PEN SC SCH (08:41)
[2018-06-25] MEDS ORDERED: ASPIRIN 81 MG ECTAB PO SCH (09:00)
[2018-06-25] MEDS ORDERED: SERTRALINE HCL 100 MG TABLET PO SCH (09:00)
[2018-06-25] MEDS ORDERED: NICOTINE 21 MG/24 HR TDSY TD SCH (09:00)
[2018-06-25] MEDS ORDERED: LISINOPRIL 20 MG TAB PO SCH (09:00)
--- NOTE | 2018-06-25 09:26 | XRay Report ---
XR ribs LT min 3V w [id number] CLINICAL HISTORY: Left upper anterior rib pain. No recent trauma. COMPARISON: Chest radiograph and chest CT June 24, 2018. FINDINGS: There is no pneumothorax or pleural effusion. A 1.8 cm left lower lobe nodule is unchanged from earlier exams. This is benign given stability. The lungs are otherwise clear. There is no evide nce for pulmonary edema. Cardiomediastinal silhouette is normal. There are several old left rib fract ures. There are degenerative changes of the left shoulder. There are several old bilateral rib fractu res. IMPRESSION: 1. No pneumothorax. No acute left-sided rib fractures. 2. 1.8 cm left lower lobe pulmonary nodule which is unchanged from earlier exams. This is benign give n stability. Electronically signed by: Chin Oliver M.D. 06/25/2018 9:24 AM
[2018-06-25] MEDS ORDERED: Nursing to Pharmacy Communication ONE (10:07)
[2018-06-25] MEDS: INSULIN ASPART 100 UNITS/ML 3 ML PEN SC SCH ×2 (12:20→17:15)
--- NOTE | 2018-06-25 13:49 | Hospitalist Progress Note ---
Date of Service June 25, 2018 Assessment & Plan (1) Atypical chest pain: Differential diagnoses include but not limited to: ACS, stable angina, PE , pleurisy, MSK, PUD Serial cardiac enzymes and EKG have been negative Echo:Left ventricular cavity size, mild concentric left ventricular hypertrophy , EF 60-65%, no wall motion abnormality and diastolic dysfunction grade 1 NEUROLOGICAL: Alert, oriented, and cooperative. Cranial nerves, sensation and strength grossly intact. Pupils round, equal, and react to light, EOMs are full. Pulmonary embolism has been ruled out by CTA Appreciate cardiology input and recommendation Chest pain seems to be musculoskeletal The patient will be discharged this afternoon (2) Hypomagnesemia: -repleted with 800 of mag oxide orally -repeat mag levels in a.m. -Hypomagnesemia is corrected (3) DM type 2 (diabetes mellitus, type 2): -unknown A1C, will obtain in a.m. -spoke with glycemic pharmacist for recommendations -he took 70/30 this a.m. 65 units -will place on Lantus 45 Q12hr units per protocol and novolog sliding scale per protocol -adjust accordingly -on JAYLIN for renal protection (4) HTN (hypertension): -blood pressure elevated on admission -prescribed lisinopril 40mg daily; however he has cut in half to 20mg because he feels it makes him lightheaded -Is not always compliant -continue lisinopril for now and monitor (5) COPD (chronic obstructive pulmonary disease): -current no acute exacerbation -no taking any ICS or LABAS -Clinically stable and does not have any wheezing and/or shortness of breath (6) Depression: -continue zoloft (7) Tobacco abuse: -currently + chewing tobacco, has quit smoking 6 months ago -nicoderm patch -encourage tobacco cessation (8) DVT prophylaxis: -heparin 5,000 units SQ Q8hr Disposition: D/C to home when able Follow up: PCP upon discharge Likely discharge this afternoon Subjective He is a 58 year old male with significant past medical history of T2DM, HTN, COPD, depression, rheumatoid arthritis, tobacco abuse, history of EtOH abuse in past, 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 06/25 The patient was seen and examined in medical telemetry unit He complains to have chest pain on the left side with movement of the left upper extremity He is ruled out for ACS He denies any other symptoms Physical Exam 2 Vital Signs (Past 24 Hours): Last Vital Signs Temp 36.8 C 06/25/18 11:46 Pulse 91 H 06/25/18 11:46 Resp 18 06/25/18 11:46 BP 157/89 H 06/25/18 11:46 Pulse Ox 96 06/25/18 11:46 Constitutional: WD/WN, vitals as above Eyes: PERRL, conjunctivae normal, anicteric sclerae ENMT: external ear and nose normal, oropharynx normal Neck: trachea midline, no thyromegaly Respiratory: normal respiratory effort, lungs clear to auscultation Cardiovascular: Rate/Rhythm: regular rate and regular rhythm Heart Sounds: normal S1 and normal S2 Gastrointestinal (Abdomen): Inspection/Auscultation: abdomen normal to inspection and normal bowel sounds Percussion/Palpation: abdomen soft Neurologic: PERRL, EOMI, accommodation nl, no face palsy, no dysarthria Psychiatric: A+Ox3, euthymic affect Results & Data Laboratory Results Short CBC 06/25/18 Range/Units 06:55 WBC 9.15 (4.8-10.8) K/uL Hgb 14.5 (14.0-18.0) g/dL Hct 42.4 (42-52) % Plt Count 232 (130-400) K/uL BMP 06/25/18 06:55 Sodium 139 Potassium 4.0 Chloride 110 H Carbon Dioxide 23 BUN 12 Creatinine 1.00 D Glucose 125 H Calcium 8.5 Cardiac Enzymes 06/24/18 06/24/18 Range/Units 19:29 22:52 Troponin I < 0.015 < 0.015 (0-0.045) ng/ml Medications Administered Current Inpatient Medications Acetaminophen (Tylenol) 650 mg PO Q4H PRN PRN Reason: Pain or Fever Stop: 07/24/18 14:26 Last Admin: 06/25/18 07:34 Dose: 650 mg Al Hydrox/Mg Hydrox/Simethicone (Maalox) 15 ml PO Q4H PRN PRN Reason: Dyspepsia Stop: 07/24/18 14:26 Aspirin (Ecotrin Ectab) 81 mg PO DAILY CROW Stop: 07/25/18 08:59 Last Admin: 06/25/18 07:35 Dose: 81 mg Dextrose (Dextrose 50%) 25 - 50 ml IV UD PRN; Protocol PRN Reason: Hypoglycemia Protocol Stop: 07/24/18 14:26 Glucagon (Glucagen) 1 mg SQ UD PRN; Protocol PRN Reason: Hypoglycemia Protocol Stop: 07/24/18 14:26 Glucose (Dex4 Glucose) 4 - 8 tabs PO UD PRN; Protocol PRN Reason: Hypoglycemia Protocol Stop: 07/24/18 14:26 Glucose (Glucose 40%) 15 - 30 gm PO UD PRN; Protocol PRN Reason: Hypoglycemia Protocol Stop: 07/24/18 14:26 Heparin Sodium (Porcine) (Heparin Sodium (Porcine)) 5,000 units SQ Q8 CROW Stop: 07/24/18 14:26 Last Admin: 06/25/18 06:05 Dose: 5,000 units Insulin Aspart (Novolog Flexpen) 0 units SC ACHS [facility] Stop: 07/25/18 05:59 Last Admin: 06/25/18 12:20 Dose: 29 units Insulin Glargine (Lantus Solostar Pen) 0 - 45 units SC Q12H CROW; Protocol Stop: 07/24/18 20:59 Last Admin: 06/25/18 08:41 Dose: 10 units Ioversol (Optiray 320 100ml) 90 ml IV ONCE PRN PRN Reason: Interaction Checking Stop: 06/28/18 16:19 Last Admin: 06/24/18 16:20 Dose: 90 ml Lisinopril (Zestril) 20 mg PO DAILY [facility] Stop: 07/25/18 08:59 Last Admin: 06/25/18 07:35 Dose: 20 mg Magnesium Hydroxide (Milk Of Magnesia) 30 ml PO Q12H PRN PRN Reason: Constipation Stop: 07/24/18 14:26 Miscellaneous (Remove Nicoderm Patch) 1 ea N/A HS [facility] Stop: 07/24/18 20:59 Last Admin: 06/24/18 20:48 Dose: Not Given Miscellaneous (Carbohydrates For Hypoglycemia) 15 - 30 gm PO UD PRN PRN Reason: Hypoglycemia Treatment Stop: 07/24/18 14:26 Nicotine (Nicoderm Cq) 21 mg TD QAM CROW Stop: 07/25/18 08:59 Last Admin: 06/25/18 07:35 Dose: 21 mg Nitroglycerin (Nitro-Bid 2%) 1 inch EXT Q6 CROW Stop: 07/24/18 17:59 Last Admin: 06/25/18 12:25 Dose: 1 inch Ondansetron HCl (Zofran) 4 mg IV Q6H PRN PRN Reason: Nausea Stop: 07/24/18 14:26 Polyethylene Glycol (Miralax Powder Packet) 17 gm PO DAILY PRN PRN Reason: Constipation Stop: 07/24/18 14:26 Sertraline HCl (Zoloft) 100 mg PO DAILY CROW Stop: 07/25/18 08:59 Last Admin: 06/25/18 07:34 Dose: 100 mg _ (1) DM type 2 (diabetes mellitus, type 2) Diabetes mellitus halfway insulin use: with manager long term care use Diabetes mellitus complication status: without complication Diabetes mellitus complication detail: Diabetic retinopathy severity: Proliferative retinopathy type: Diabetes mellitus macular edema: Laterality: Chronic kidney disease stage: Qualified Code(s): E11.9 - Type 2 diabetes mellitus without complications; 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
[2018-06-25 15:38] VITALS: BP 118/79; O2SAT 97
[2018-06-25 16:09] VITALS: PULSE 73
--- NOTE | 2018-06-25 16:27 | Discharge Summary ---
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 He denies recent illness, f/c/s, dizziness, lightheaded, hemoptysis, MCNAIR, n/v/d, abdominal pain, dysuria, hematuria, increased urg/freq with urination. Denies hx of CAD or FH of CAD. +Personal history of PE when hospitalized for bacteremia /OM. He was treated with Anticoagulation at time but currently does not take. States he is not always compliant with medication. He checks his bsg when he feels like it. BSG ranges from 60-180s, feels it is better on insulin regimen. Admission Exam Per Admitting Provider Vital Signs (Past 24 Hours): Last Vital Signs Temp 36.3 C L 06/24/18 10:11 Pulse 93 H 06/24/18 12:28 Resp 20 06/24/18 12:28 BP 152/90 H 06/24/18 12:28 Pulse Ox 98 06/24/18 12:28 Physical Exam: Gen: WD/WN, M, unkempt in appearance, NAD, sitting up in bed , pleasant, conversing easily Head: Normocephalic, Atraumatic Eyes: Sclera normal, no conjunctival injection, PERRLA, EOMI ENT: Gross hearing intact, normal pharynx, mucous membranes moist Neck: supple, no adenopathy, No JVD, no bruit, Resp: Clear to auscultation b/l, no wheeze, rales, rhonchi. Pain reproduced with inspiration, Normal insp/exp effort, no accessory muscle use CV: Regular rate, regular rhythm, 1/6 HAKEEM noted cardiac base, no rub, gallop, or ectopy Abd: +BS x 4, soft, nontender, nondistended Musculoskeletal: moves extremities active rom x 4, strength intact, good organ teacher strength Extremities:trace edema bilaterally Skin: warm, moist, no rash, negative turgor, cap refill < 2sec, nail beds stained with grease Neuro: Alert and oriented x 3, speech normal, good mood/affect, cran nerve 2-12 intact grossly : deferred Principal Diagnosis Chest pain likely musculoskeletal Discharge Exam Constitutional WD/WN, vitals as above Eyes PERRL, conjunctivae normal, anicteric sclerae ENMT external ear and nose normal, oropharynx normal Neck trachea midline, no thyromegaly Respiratory normal respiratory effort, lungs clear to auscultation Cardiovascular Rate/Rhythm: regular rate and regular rhythm Heart Sounds: normal S1 and normal S2 Gastrointestinal (Abdomen) Inspection/Auscultation: abdomen normal to inspection and normal bowel sounds Percussion/Palpation: abdomen soft Neurologic PERRL, EOMI, accommodation nl, no face palsy, no dysarthria Psychiatric A+Ox3, euthymic affect Discharge Data Allergies Allergy/AdvReac Type Severity Reaction Status Date / Time morphine AdvReac Severe PT BECOMES Verified 06/24/18 12:17 VERY CONFUSED Consultations 06/24/18 12:19 ED Decision to Admit Stat 06/24/18 13:03 Consult Cardiology Routine Ordered Studies 06/24/18 14:27 CT angio chest PE protocol Urgent US venous doppler [facility] Urgent Hospital Course (1) Atypical chest pain: Differential diagnoses include but not limited to: ACS, stable angina, PE , pleurisy, MSK, PUD Serial cardiac enzymes and EKG have been negative Echo:Left ventricular cavity size, mild concentric left ventricular hypertrophy , EF 60-65%, no wall motion abnormality and diastolic dysfunction grade 1 NEUROLOGICAL: Alert, oriented, and cooperative. Cranial nerves, sensation and strength grossly intact. Pupils round, equal, and react to light, EOMs are full. Pulmonary embolism has been ruled out by CTA Appreciate cardiology input and recommendation Chest pain seems to be musculoskeletal The patient will be discharged this afternoon (2) Hypomagnesemia: -repleted with 800 of mag oxide orally -repeat mag levels in a.m. -Hypomagnesemia is corrected (3) DM type 2 (diabetes mellitus, type 2): -unknown A1C, will obtain in a.m. -spoke with glycemic pharmacist for recommendations -he took 70/30 this a.m. 65 units -will place on Lantus 45 Q12hr units per protocol and novolog sliding scale per protocol -adjust accordingly -on JAYLIN for renal protection (4) HTN (hypertension): -blood pressure elevated on admission -prescribed lisinopril 40mg daily; however he has cut in half to 20mg because he feels it makes him lightheaded -Is not always compliant -continue lisinopril for now and monitor (5) COPD (chronic obstructive pulmonary disease): -current no acute exacerbation -no taking any ICS or LABAS -Clinically stable and does not have any wheezing and/or shortness of breath (6) Depression: -continue zoloft (7) Tobacco abuse: -currently + chewing tobacco, has quit smoking 6 months ago -nicoderm patch -encourage tobacco cessation (8) DVT prophylaxis: -heparin 5,000 units SQ Q8hr Disposition: D/C to home when able Follow up: PCP upon discharge Likely discharge this afternoon Total Time Total Time Spent Total Time Spent (In Minutes): 35 minutes Total Time Includes: Examination of the Patient, Discharge Planning and Medication Reconciliation Discharge Plan Discharge Items Patient Disposition: Home - Self-Care Reason For Visit: CHEST PAIN Discharge Diagnosis: Chest pain likely musculoskeletal Condition: Good Discharge Goals: Decrease discomfort, Improve disease control and Improve function Activity: Resume your previous activity Non-emergency contact: Primary Care Provider Call non-emergency contact if: you have any medication questions and your symptoms worsen Follow-up/Referrals: PCP,NO [Primary Care Provider] - (Please make an appointment with your primary care physician within 7 days) Diet: Heart Healthy Addtl Provider Instructions: Please quit smoking. He continues Excedrin occasionally for pain control but to continue with [id number] NSAIDs Prescriptions: New nicotine [Nicoderm CQ] 21 mg/24 hr Patch 24 Hour 21 mg Transdermal QAM 30 Days Qty: 30 RF: 0 Continue sertraline 100 mg tablet 100 mg PO DAILY RF: 0 insulin NPH and regular human 100 unit/mL (70-30) suspension 65 units subcut BID RF: 0 metformin 1,000 mg tablet 1,000 mg PO BID RF: 0 lisinopril 40 mg tablet 20 mg PO DAILY RF: 0 Stand-Alone Forms: [facility] Discharge Orders: Discharge Order (Routine); Ordered 06/25/18 Ordered By: Luis Felipe Renteria Admission Data Admit Date/Time: 06/24/18 13:00 Attending Provider: Luis Felipe Renteria Admit Provider: Luis Felipe Renteria Primary Care Provider: PCP,JUAN Other Providers: Rick Villavicencio John C Service: Telemetry Other Interventions: Discharge Summary Assessment (RN) Last Done: 06/25/18 16:07
== END 2018-06-25 17:28 | disposition home or self-care (01) | DRG 206 ==
LOC: ED 10:08 → 2W 13:00

== ENCOUNTER 2020-04-28 13:00 | Inpatient (IN) ==
--- OUTSIDE RECORDS SUMMARY | 2020-04-28 13:03 | External Medical Summary | Continuity of Care Document ---
:1960 Author Name Jaime Weldon Address Unavailable Unavailable , Care Team Providers Name Role Phone Roslyn [email or web address] PCP, UNKNOWN Unavailable Unavailable Problems Active medical history not documented Allergies and Adverse Reactions Allergy history not documented Medications Medications not documented Procedures Procedures not documented Immunizations Immunizations not documented Plan of Treatment Planned Observations Planned Goals not documented Results No Known Results Results not documented
--- OUTSIDE RECORDS SUMMARY | 2020-04-28 13:03 | External Medical Summary | Continuity of Care Document ---
:1960 Author Name Jaime Weldon Address Unavailable Unavailable , Care Team Providers Name Role Phone Roslyn [email or web address] PCP, UNKNOWN Unavailable Unavailable Problems Active medical history not documented Allergies and Adverse Reactions Allergy history not documented Medications Medications not documented Procedures Procedures not documented Immunizations Immunizations not documented Plan of Treatment Planned Observations Planned Goals not documented Results No Known Results Results not documented
[2020-04-28] MEDS ORDERED: SODIUM CHLORIDE 0.9% 1000ML 1,000 ML IV ONE (13:23)
--- NOTE | 2020-04-28 13:31 | Emergency Department Note ---
Impression & Plan Acute kidney injury, Vomiting and diarrhea, Acute dehydration, COVID-19 virus infection, Uncontrolled type 2 diabetes mellitus with hyperglycemia ED Provider Note CHIEF COMPLAINT: Vomiting, diarrhea, fatigue, shortness of breath HISTORY OF PRESENTING ILLNESS: This is a 60-year-old male who presents to the emergency department by private vehicle with complaint of several days of vomiting, diarrhea, poor appetite, and generalized fatigue. Patient states his symptoms have been going on for about 5 days, but he feels he has been getting persistently worse. He denies any bloody or bilious emesis. He denies any bloody or black stools. He has been having watery diarrhea at times. He notes that he is so tired that he has to lie down after short exertion such as walking to the bathroom. He also states he has been feeling short of breath which he states is unusual for him. He does have a history of COPD and does not use any oxygen at home. He has not been using inhalers. He denies any chest pain or abdominal pain. He rates his pain level 0/10. He states "I just feel so tired and worn out." He is type II diabetic on insulin, he notes that he has been taking his insulin and has not been eating very much but his blood glucose levels have been high in the 400s for the past few days. Normally he ranges 140-180. Nursing staff notes that he smells of ketones in triage. He denies any known exposures to anyone who has been sick or tested positive for COVID-19. 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 He has a history of a pulmonary embolism, he is not currently on anticoagulants. REVIEW OF SYSTEMS: A complete 10 point review of systems was reviewed with the patient with pertinent positives and negatives as per history of present illness. All else were negative. PAST MEDICAL HISTORY: Hypertension, type 2 diabetes, depression, GERD, COPD SOCIAL HISTORY: Lives at home alone, he is a former smoker ALLERGIES: Reviewed in chart and with the patient PHYSICAL EXAM: CONSTITUTIONAL: Pleasant and cooperative. Nontoxic-appearing and in no acute distress, but appears to feel generally unwell. Dehydrated. HEENT: Normocephalic, atraumatic. Pharynx normal. Dry mucous membranes. NECK: Supple, full active range of motion without discomfort. No cervical adenopathy. No nuchal rigidity or meningismus. RESPIRATORY: Diminished in the bases bilaterally, otherwise clear to auscultation with no wheezing, crackles, rhonchi or stridor. Nonlabored breathing, no tachypnea or accessory muscle use. Equal expansion bilaterally. CARDIOVASCULAR: Regular rate and rhythm with no murmurs, rubs or gallops. Normal peripheral perfusion, 2+ distal pulses in all 4 extremities. No pitting edema. GASTROINTESTINAL: Soft, nontender, nondistended, obese abdomen. No palpable masses or HSM. Bowel sounds present in all quadrants. No CVA tenderness bilaterally. MUSCULOSKELETAL: Full range of motion of all joints without discomfort. INTEGUMENTARY: No rash or other significant dermatologic conditions noted. NEUROLOGIC: Alert and oriented X 4 with normal affect. Normal strength and sensation in all 4 extremities. Normal speech. Normal gait observed. ED COURSE AND MEDICAL DECISION MAKING: CC: Patient presenting with complaint of vomiting, diarrhea, fatigue, shortness of breath DIFFERENTIAL DIAGNOSIS: Includes, but not limited to COVID-19, other viral URI, bronchitis, pneumonia, COPD exacerbation, diabetic ketoacidosis, acute kidney injury, dehydration, electrolyte abnormality, anemia, acute coronary syndrome, pulmonary embolism, pneumonia, among others. INTERPRETATION OF LABS: No leukocytosis, no anemia, normal platelets, hyperglycemia with refractory hyponatremia, no other significant electrolyte abnormalities, low bicarb, but gap is closed, acutely elevated BUN and creatinine, normal liver enzymes. Mildly elevated lipase. Beta hydroxybutyric acid normal. Lactate elevated. Troponin undetectable. pH on VBG is mildly low with slightly low PCO2, otherwise within normal limits. UA shows 3+ glucose, no ketones, and no evidence of infection. SARS-CoV-2 RNA test is POSITIVE. IMAGING: SINGLE VIEW CHEST CLINICAL HISTORY: Dyspnea. FINDINGS: An AP, portable, upright chest radiograph is compared to study dated 06/25/2018 and correlated with chest CT dated 06/24/2018. The examination is degra ded by portable technique, apical lordotic positioning, and patient rotation. The heart is top normal for projection. The pulmonary vasculature is noncongested. There is mild chronic elevation of the right hemidiaphragm and bibasilar atelectasis. A 15 mm nodule in the left midlung is unchanged from previous. No airspace consolidation or large pleural effusion is identified. There is no pneumothorax. This bony structures appear intact. Surgical anchors are noted in the right humeral head. IMPRESSION: No acute cardiopulmonary abnormality. EKG: Shows sinus rhythm with rate of 75 bpm, first-degree AV block, otherwise normal intervals, no ST depression or elevation, no ectopy, no significant change when compared to previous EKG from 06/25/2018 by my interpretation. MEDICATION RECONCILIATION: I attest that I have personally reviewed the patient's current medication list. INITIAL VITAL SIGNS REVIEW: I reviewed the patient's initial vital signs and interpret them as follows: T: Afebrile; BP: Hypertensive; HR: Within normal limits; RR: Within normal limits; Pulse Ox: Within normal limits on room air. MDM SUMMARY: Patient was evaluated at bedside, history and physical exam performed. Patient is alert and oriented, in no acute distress, resting calmly in the stretcher. He is afebrile and nontoxic-appearing, but does appear to feel unwell and does appear to be dehydrated. [id number] blood glucose is greater than 400. He denies any pain. His abdomen is nontender to palpation throughout. He does complain of some bloating. Cardiac monitoring: An order was placed for continuous cardiac monitoring. The monitor shows a rate of 87 bpm with normal sinus rhythm. Orders were placed for CBC, CMP, lipase, VBG, serum ketones, urinalysis, blood cultures x2, lactate, troponin, D-dimer, COVID-19 testing, EKG and chest x-ray. Patient declined anything for nausea at this time and denies any pain currently. Patient discussed with Dr. Oviedo, who agrees with my assessment, plan, and disposition. The charge nurse notified me of a critical elevated D-dimer > 3000. Orders for CTA of the chest to rule out PE, as well as CT of the abdomen/pelvis given his vomiting and diarrhea were placed. Labs and imaging reviewed as above, labs are concerning for acute kidney injury, significant hyperglycemia without any evidence of DKA, and an elevated lactate. No ketones in the urine. He is positive for COVID-19. Chest x-ray reviewed as above, no acute cardiopulmonary abnormality and no evidence for pneumonia. EKG did not show any ischemic changes. Given the acute kidney injury with a creatinine of 1.9, I did not feel that IV contrast was prudent at this time. The patient is positive for COVID-19, which most likely accounts for the elevated D-dimer. I spoke on the phone with Dr. Lawrence, [facility] hospitalist, who agrees to evaluate the patient for admission. Per the hospitalist, will hold off on CT imaging due to the elevated creatinine. He will treat the patient with Lovenox given the elevated D-dimer and history of PE in the past. Patient reassessed multiple times throughout ED stay, he has remained hemodynamically stable and afebrile. The patient was updated on all results and plan for admission, he verbalized understanding and was agreeable to this plan. The patient was stable at time of admission. The chart was completed utilizing [employer] Speech voice recognition software. Grammatical errors, random word insertions, pronoun errors, and incomplete sentences are an occasional consequence of this system due to software limitations, ambient noise, and hardware issues. Any formal questions or concerns about the content, text, or information contained within the body of this dictation should be directly addressed to the nurse practitioner for c larification. Past Med/Surg History Medical History (Updated 04/28/20 @ 21:00 by RONALD Pederson) COPD (chronic obstructive pulmonary disease) Depression DM type 2 (diabetes mellitus, type 2) GERD (gastroesophageal reflux disease) History of pulmonary embolism when hospitalized for bacteremia and OM Hypertension MRSA bacteremia Osteoarthritis Rheumatoid arthritis Tobacco abuse Surgical History History of left hip replacement History of right hip replacement History of shoulder surgery Right x 2 Family History Father Diabetes Lung disease emphysema Mother Hypertension Denies family history of Heart disease Social History (Updated 06/24/18 @ 14:02 by Carrie Kelley PA-C) Smoking Status: Former smoker Tobacco Type: Cigarettes Cigarettes Per Day: 25-30pack history; Second Hand Exposure: No; Hx Alcohol Use: Yes Alcohol Intake Frequency Comment: 4 beers a week Hx Substance Use: No Preferred Language: Czech Communication Ability: Effective 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 Beliefs That Will Affect Care: None marital status: Current Living Situation: Alone current occupational status: disabled Feels Safe at Home: Yes Assistive Devices: None Allergies Allergies Allergy/AdvReac Type Severity Reaction Status Date / Time morphine AdvReac Severe PT BECOMES Verified 12/16/20 17:59 VERY CONFUSED lorazepam AdvReac Confusion Unverified 04/28/20 18:00 Home Meds Home Medications Medication Instructions Recorded Confirmed insulin NPH and regular human 60 units SUBCUT BID 06/24/18 04/28/20 metformin 1,000 mg PO BID 06/24/18 04/28/20 glipizide 5 mg PO BID 04/28/20 04/28/20 lisinopril 20 mg PO DAILY 04/28/20 04/28/20 omeprazole 20 mg PO DAILY PRN 04/28/20 04/28/20 sertraline 100 mg PO BID 04/28/20 04/28/20 simvastatin 40 mg PO QPM 04/28/20 04/28/20 tamsulosin 0.4 mg PO DAILY 04/28/20 04/28/20 Results & Data (ED) Vital Signs Vital Signs - 24 hr 04/28/20 13:03 04/28/20 14:00 04/28/20 15:00 Temperature 36.8 C Temperature Source Oral Pulse Rate 90 Pulse Rate [Apical] 78 Pulse Rate from SpO2 Sensor Pulse Rhythm [Apical] Regular Pulse Strength [Apical] Normal Respiratory Rate 20 18 Respiratory Effort / Characteristics Non-Labored Spontaneous Respiratory Depth Normal Respiratory Pattern Regular Blood Pressure 197/93 H Blood Pressure [Right Arm] 136/89 Blood Pressure Mean 127 Blood Pressure Mean [Right Arm] 104 Blood Pressure Position [Right Arm] Lying Pulse Oximetry 99 96 Oxygen Delivery Method Room Air Room Air Room Air Sepsis Recent Fever Within 48 Hours No Sepsis New/Unexplained Change in Mental Status N/A Sepsis Action Taken by Nursing No Action Required 04/28/20 17:01 04/28/20 17:18 04/28/20 17:30 Temperature Temperature Source Pulse Rate 77 78 84 Pulse Rate [Apical] Pulse Rate from SpO2 Sensor 79 79 81 Pulse Rhythm [Apical] Pulse Strength [Apical] Respiratory Rate 18 27 H 24 Respiratory Effort / Characteristics Respiratory Depth Respiratory Pattern Blood Pressure 148/97 H 148/97 H 139/82 Blood Pressure [Right Arm] Blood Pressure Mean 114 121 126 Blood Pressure Mean [Right Arm] Blood Pressure Position [Right Arm] Pulse Oximetry 97 97 97 Oxygen Delivery Method Sepsis Recent Fever Within 48 Hours Sepsis New/Unexplained Change in Mental Status Sepsis Action Taken by Nursing 04/28/20 18:00 04/28/20 18:30 Temperature Temperature Source Pulse Rate 82 Pulse Rate [Apical] Pulse Rate from SpO2 Sensor 82 84 Pulse Rhythm [Apical] Pulse Strength [Apical] Respiratory Rate 13 Respiratory Effort / Characteristics Respiratory Depth Respiratory Pattern Blood Pressure 144/76 H 146/77 H Blood Pressure [Right Arm] Blood Pressure Mean 90 91 Blood Pressure Mean [Right Arm] Blood Pressure Position [Right Arm] Pulse Oximetry 97 97 Oxygen Delivery Method Sepsis Recent Fever Within 48 Hours Sepsis New/Unexplained Change in Mental Status Sepsis Action Taken by Nursing Laboratory Data Result diagrams: 04/28/20 15:03 04/28/20 15:03 Lab Results 04/28/20 04/28/20 04/28/20 Range/Units 13:07 15:00 15:00 WBC (4.8-10.8) K/uL RBC (4.7-6.1) M/uL Hgb (14.0-18.0) g/dL Hct (42-52) % MCV (80-100) fL MCH (25-34) pg MCHC (32-36) g/dL RDW Std Deviation (36.4-46.3) fL RDW Coeff of Purvi (11.5-14.5) % Plt Count (130-400) K/uL MPV (7.4-10.4) fL Immature Gran % (Auto) % Neut % (Auto) % Lymph % (Auto) % Pepin % (Auto) % Eos % (Auto) % Baso % (Auto) % Neut # (Auto) (1.4-6.5) K/uL Lymph # (Auto) (1.2-3.4) K/uL Pepin # (Auto) (0.11-0.59) K/uL Eos # (Auto) (0-0.5) K/uL Baso # (Auto) (0-0.2) K/uL Immature Gran # (Auto) (0.00-0.02) K/uL D-Dimer (0-500) ug/L FEU VBG pH (7.36-7.41) VBG pCO2 (38-50) mmHg VBG pO2 mmHg VBG HCO3 mmol/L VBG O2 Saturation % VBG Base Excess mEq/L Barometric Pressure mm/Hg Sodium (136-145) mmol/L Potassium (3.5-5.1) mmol/L Chloride (98-107) mmol/L Carbon Dioxide (21-32) mmol/L Anion Gap (3-11) BUN (7-18) mg/dl Creatinine (0.6-1.4) mg/dl Est Cr Clr Drug Dosing ml/min Est GFR ( Amer) Est GFR (Non-Af Amer) BUN/Creatinine Ratio (10-20) Glucose (70-99) mg/dl POC Glucose 439 H* (70-99) mg/dl Lactate (0.4-2.0) mmol/L Calcium (8.5-10.1) mg/dl Total Bilirubin (0.2-1) mg/dl AST (15-37) U/L ALT (12-78) U/L Alkaline Phosphatase (45-117) U/L Troponin I (0-0.045) ng/ml Total Protein (6.4-8.2) gm/dl Albumin (3.4-5.0) gm/dl Globulin (2.5-4.0) gm/dl Albumin/Globulin Ratio (0.9-2) Lipase (73-393) U/L Beta-Hydroxybutyric Acd (0.2-2.81) mg/dl Urine Color Urine Appearance (Clear) Urine pH (4.5-7.5) Ur Specific [place] (1.000-1.030) Urine Protein (Negative) Urine Glucose (UA) (Negative) Urine Ketones (Negative) Urine Blood (Negative) Urine Nitrite (Negative) Urine Bilirubin (Negative) Urine Urobilinogen (Negative) Ur Leukocyte Esterase (Negative) Urine WBC (Auto) (0-5) /hpf Urine RBC (Auto) (0-4) /hpf U Hyaline Cast (Auto) (0-5) /lpf U Epithel Cells (Auto) (0-5) /lpf Urine Bacteria (Auto) (Negative) COVID-19 Eval Order Covid19 IDNow [facility] SARS-CoV-2, RNA, NAAT POSITIVE A* (NEGATIVE) 04/28/20 04/28/20 04/28/20 Range/Units 15:03 15:03 15:03 WBC 10.45 (4.8-10.8) K/uL RBC 4.71 (4.7-6.1) M/uL Hgb 14.4 (14.0-18.0) g/dL Hct 40.3 L (42-52) % MCV 85.6 (80-100) fL MCH 30.6 (25-34) pg MCHC 35.7 (32-36) g/dL RDW Std Deviation 43.9 (36.4-46.3) fL RDW Coeff of Purvi 14.2 (11.5-14.5) % Plt Count 171 (130-400) K/uL MPV 12.2 H (7.4-10.4) fL Immature Gran % (Auto) 1.1 % Neut % (Auto) 70.8 % Lymph % (Auto) 15.3 % Pepin % (Auto) 10.5 % Eos % (Auto) 2.1 % Baso % (Auto) 0.2 % Neut # (Auto) 7.40 H (1.4-6.5) K/uL Lymph # (Auto) 1.60 (1.2-3.4) K/uL Pepin # (Auto) 1.10 H (0.11-0.59) K/uL Eos # (Auto) 0.22 (0-0.5) K/uL Baso # (Auto) 0.02 (0-0.2) K/uL Immature Gran # (Auto) 0.11 H (0.00-0.02) K/uL D-Dimer (0-500) ug/L FEU VBG pH 7.33 L (7.36-7.41) VBG pCO2 36 L (38-50) mmHg VBG pO2 41 mmHg VBG HCO3 19 mmol/L VBG O2 Saturation 73.4 % VBG Base Excess -6.4 mEq/L Barometric Pressure 735.5 mm/Hg Sodium 132 L (136-145) mmol/L Potassium 4.9 (3.5-5.1) mmol/L Chloride 106 (98-107) mmol/L Carbon Dioxide 17 L (21-32) mmol/L Anion Gap 9.0 (3-11) BUN 66 H (7-18) mg/dl Creatinine 1.92 H (0.6-1.4) mg/dl Est Cr Clr Drug Dosing 48.7 ml/min Est GFR ( Amer) 42.6 Est GFR (Non-Af Amer) 36.8 BUN/Creatinine Ratio 34.5 H (10-20) Glucose 352 H* (70-99) mg/dl POC Glucose (70-99) mg/dl Lactate (0.4-2.0) mmol/L Calcium 9.3 (8.5-10.1) mg/dl Total Bilirubin 0.4 (0.2-1) mg/dl AST 18 (15-37) U/L ALT 37 (12-78) U/L Alkaline Phosphatase 102 (45-117) U/L Troponin I < 0.015 (0-0.045) ng/ml Total Protein 8.4 H (6.4-8.2) gm/dl Albumin 4.1 (3.4-5.0) gm/dl Globulin 4.3 H (2.5-4.0) gm/dl Albumin/Globulin Ratio 0.9 (0.9-2) Lipase 568 H (73-393) U/L Beta-Hydroxybutyric Acd 0.90 (0.2-2.81) mg/dl Urine Color Urine Appearance (Clear) Urine pH (4.5-7.5) Ur Specific [place] (1.000-1.030) Urine Protein (Negative) Urine Glucose (UA) (Negative) Urine Ketones (Negative) Urine Blood (Negative) Urine Nitrite (Negative) Urine Bilirubin (Negative) Urine Urobilinogen (Negative) Ur Leukocyte Esterase (Negative) Urine WBC (Auto) (0-5) /hpf Urine RBC (Auto) (0-4) /hpf U Hyaline Cast (Auto) (0-5) /lpf U Epithel Cells (Auto) (0-5) /lpf Urine Bacteria (Auto) (Negative) COVID-19 Eval Order SARS-CoV-2, RNA, NAAT (NEGATIVE) 04/28/20 04/28/20 04/28/20 Range/Units 15:03 15:03 17:10 WBC (4.8-10.8) K/uL RBC (4.7-6.1) M/uL Hgb (14.0-18.0) g/dL Hct (42-52) % MCV (80-100) fL MCH (25-34) pg MCHC (32-36) g/dL RDW Std Deviation (36.4-46.3) fL RDW Coeff of Purvi (11.5-14.5) % Plt Count (130-400) K/uL MPV (7.4-10.4) fL Immature Gran % (Auto) % Neut % (Auto) % Lymph % (Auto) % Pepin % (Auto) % Eos % (Auto) % Baso % (Auto) % Neut # (Auto) (1.4-6.5) K/uL Lymph # (Auto) (1.2-3.4) K/uL Pepin # (Auto) (0.11-0.59) K/uL Eos # (Auto) (0-0.5) K/uL Baso # (Auto) (0-0.2) K/uL Immature Gran # (Auto) (0.00-0.02) K/uL D-Dimer 3400 H* (0-500) ug/L FEU VBG pH (7.36-7.41) VBG pCO2 (38-50) mmHg VBG pO2 mmHg VBG HCO3 mmol/L VBG O2 Saturation % VBG Base Excess mEq/L Barometric Pressure mm/Hg Sodium (136-145) mmol/L Potassium (3.5-5.1) mmol/L Chloride (98-107) mmol/L Carbon Dioxide (21-32) mmol/L Anion Gap (3-11) BUN (7-18) mg/dl Creatinine (0.6-1.4) mg/dl Est Cr Clr Drug Dosing ml/min Est GFR ( Amer) Est GFR (Non-Af Amer) BUN/Creatinine Ratio (10-20) Glucose (70-99) mg/dl POC Glucose (70-99) mg/dl Lactate 2.4 H* (0.4-2.0) mmol/L Calcium (8.5-10.1) mg/dl Total Bilirubin (0.2-1) mg/dl AST (15-37) U/L ALT (12-78) U/L Alkaline Phosphatase (45-117) U/L Troponin I (0-0.045) ng/ml Total Protein (6.4-8.2) gm/dl Albumin (3.4-5.0) gm/dl Globulin (2.5-4.0) gm/dl Albumin/Globulin Ratio (0.9-2) Lipase (73-393) U/L Beta-Hydroxybutyric Acd (0.2-2.81) mg/dl Urine Color Yellow Urine Appearance Clear (Clear) Urine pH 5.0 (4.5-7.5) Ur Specific [place] 1.021 (1.000-1.030) Urine Protein Trace H (Negative) Urine Glucose (UA) 3+ H (Negative) Urine Ketones Negative (Negative) Urine Blood Negative (Negative) Urine Nitrite Negative (Negative) Urine Bilirubin Negative (Negative) Urine Urobilinogen Negative (Negative) Ur Leukocyte Esterase Negative (Negative) Urine WBC (Auto) 1-5 (0-5) /hpf Urine RBC (Auto) 0-4 (0-4) /hpf U Hyaline Cast (Auto) 1-5 (0-5) /lpf U Epithel Cells (Auto) 5-10 H (0-5) /lpf Urine Bacteria (Auto) Negative (Negative) COVID-19 Eval Order SARS-CoV-2, RNA, NAAT (NEGATIVE) 04/28/20 Range/Units 17:13 WBC (4.8-10.8) K/uL RBC (4.7-6.1) M/uL Hgb (14.0-18.0) g/dL Hct (42-52) % MCV (80-100) fL MCH (25-34) pg MCHC (32-36) g/dL RDW Std Deviation (36.4-46.3) fL RDW Coeff of Purvi (11.5-14.5) % Plt Count (130-400) K/uL MPV (7.4-10.4) fL Immature Gran % (Auto) % Neut % (Auto) % Lymph % (Auto) % Pepin % (Auto) % Eos % (Auto) % Baso % (Auto) % Neut # (Auto) (1.4-6.5) K/uL Lymph # (Auto) (1.2-3.4) K/uL Pepin # (Auto) (0.11-0.59) K/uL Eos # (Auto) (0-0.5) K/uL Baso # (Auto) (0-0.2) K/uL Immature Gran # (Auto) (0.00-0.02) K/uL D-Dimer (0-500) ug/L FEU VBG pH (7.36-7.41) VBG pCO2 (38-50) mmHg VBG pO2 mmHg VBG HCO3 mmol/L VBG O2 Saturation % VBG Base Excess mEq/L Barometric Pressure mm/Hg Sodium (136-145) mmol/L Potassium (3.5-5.1) mmol/L Chloride (98-107) mmol/L Carbon Dioxide (21-32) mmol/L Anion Gap (3-11) BUN (7-18) mg/dl Creatinine (0.6-1.4) mg/dl Est Cr Clr Drug Dosing ml/min Est GFR ( Amer) Est GFR (Non-Af Amer) BUN/Creatinine Ratio (10-20) Glucose (70-99) mg/dl POC Glucose (70-99) mg/dl Lactate 1.1 (0.4-2.0) mmol/L Calcium (8.5-10.1) mg/dl Total Bilirubin (0.2-1) mg/dl AST (15-37) U/L ALT (12-78) U/L Alkaline Phosphatase (45-117) U/L Troponin I (0-0.045) ng/ml Total Protein (6.4-8.2) gm/dl Albumin (3.4-5.0) gm/dl Globulin (2.5-4.0) gm/dl Albumin/Globulin Ratio (0.9-2) Lipase (73-393) U/L Beta-Hydroxybutyric Acd (0.2-2.81) mg/dl Urine Color Urine Appearance (Clear) Urine pH (4.5-7.5) Ur Specific [place] (1.000-1.030) Urine Protein (Negative) Urine Glucose (UA) (Negative) Urine Ketones (Negative) Urine Blood (Negative) Urine Nitrite (Negative) Urine Bilirubin (Negative) Urine Urobilinogen (Negative) Ur Leukocyte Esterase (Negative) Urine WBC (Auto) (0-5) /hpf Urine RBC (Auto) (0-4) /hpf U Hyaline Cast (Auto) (0-5) /lpf U Epithel Cells (Auto) (0-5) /lpf Urine Bacteria (Auto) (Negative) COVID-19 Eval Order SARS-CoV-2, RNA, NAAT (NEGATIVE) Administered Medications Discontinued Medications Sodium Chloride (Nss 1000ml) 1,000 mls @ 999 mls/hr IV .[id number] ONE Stop: 04/28/20 14:23 Last Infusion: 04/28/20 18:20 Dose: 0 mls/hr Documented by: [id number] Admin: 04/28/20 17:00 Dose: 999 mls/hr Documented by: [id number] Discharge Plan Visit Data Chief Complaint: Vomiting Stated Complaint: VOMITING WORSENING OVER THE WEEK ED Provider: Beny Oviedo ED Midlevel Provider: Juana Lockhart Discharge Problem: Acute kidney injury, Vomiting and diarrhea, Acute dehydration, COVID-19 virus infection, Uncontrolled type 2 diabetes mellitus with hyperglycemia Patient Disposition: Admitted As Inpatient Condition: Good Discharge Instructions Interventions: ED Discharge Assessment Last Done: 04/28/20 20:31
--- NOTE | 2020-04-28 14:24 | XRay Report ---
SINGLE VIEW CHEST CLINICAL HISTORY: Dyspnea. FINDINGS: An AP, portable, upright chest radiograph is compared to study dated 06/25/2018 and correlat ed with chest CT dated 06/24/2018. The examination is degraded by portable technique, apical lordotic positioning, and patient rotation. The heart is top normal for projection. The pulmonary vasculature is noncongested. There is mild chronic elevation of the right hemidiaphragm and bibasilar atelectasi s. A 15 mm nodule in the left midlung is unchanged from previous. No airspace consolidation or large pleural effusion is identified. There is no pneumothorax. This bony structures appear intact. Surgica l anchors are noted in the right humeral head. IMPRESSION: No acute cardiopulmonary abnormality. ACT 112: Negative or not required by law. Electronically signed by: Biju Lucero M.D. 04/28/2020 2:23 PM
[2020-04-28 15:18] LABS: Basophils # (auto) 0.02 K/uL (0-0.2); Basophils % (auto) 0.2 %; Eosinophils # (auto) 0.22 K/uL (0-0.5); Eosinophils % (auto) 2.1 %; Hematocrit (blood only) 40.3 % (42-52); Hemoglobin 14.4 g/dL (14.0-18.0); Immature Granulocytes # (auto) 0.11 K/uL (0.00-0.02); Immature Granulocytes % (auto) 1.1 %; Lymphocytes % (auto) 15.3 %; Mean Corpuscular Hemoglobin 30.6 pg (25-34); Mean Corpuscular Hgb Conc 35.7 g/dL (32-36); Mean Corpuscular Volume 85.6 fL (80-100); Mean Platelet Volume 12.2 fL (7.4-10.4); Monocytes % (auto) 10.5 %; Neutrophils % (auto) 70.8 %; Platelet Count 171 K/uL (130-400); RDW Coefficient of Variation 14.2 % (11.5-14.5); RDW Standard Deviation 43.9 fL (36.4-46.3); Red Blood Count 4.71 M/uL (4.7-6.1); White Blood Count 10.45 K/uL (4.8-10.8)
[2020-04-28 15:21] LABS: Base Excess VBG -6.4 mEq/L; Oxygen Saturation VBG 73.4 %; pH VBG 7.33 (7.36-7.41)
[2020-04-28 15:31] LABS: D Dimer 3400 ug/L FEU (0-500)
[2020-04-28 16:02] LABS: Alanine Aminotransferase 37 U/L (12-78); Albumin Globulin Ratio 0.9 (0.9-2); Albumin Level 4.1 gm/dl (3.4-5.0); Alkaline Phosphatase 102 U/L (45-117); Aspartate Aminotransferase 18 U/L (15-37); BUN Creatinine Ratio 34.5 (10-20); Bilirubin,Total 0.4 mg/dl (0.2-1); Blood Urea Nitrogen 66 mg/dl (7-18); Calcium 9.3 mg/dl (8.5-10.1); Carbon Dioxide 17 mmol/L (21-32); Chloride 106 mmol/L (98-107); Creatinine Clr Calc Pharmacy 48.7 ml/min; Est GFR (African American) 42.6; Est GFR (Non-African American) 36.8; Globulin 4.3 gm/dl (2.5-4.0); Glucose 352 mg/dl (70-99); Lipase 568 U/L (73-393); Potassium 4.9 mmol/L (3.5-5.1); Sodium 132 mmol/L (136-145); Total Protein 8.4 gm/dl (6.4-8.2); Troponin I < 0.015 ng/ml (0-0.045)
[2020-04-28 17:30] LABS: Appearance Urine Clear (Clear); Bacteria Urine Automated Negative (Negative); Bilirubin Urine Negative (Negative); Blood Urine Negative (Negative); Color Urine Yellow; Glucose Urine UA 3+ (Negative); Ketones Urine Negative (Negative); Leukocyte Esterase Urine Negative (Negative); Nitrite Urine Negative (Negative); Protein Urine Trace (Negative); RBC Urine Automated 0-4 /hpf (0-4); Specific Gravity Urine 1.021 (1.000-1.030); Urobilinogen Urine Negative (Negative)
--- NOTE | 2020-04-28 20:08 | History & Physical Report ---
Date of Service April 28, 2020 Assessment & Plan (1) Vomiting and diarrhea: Mostly related to COVID 19 symptoms Continue IVF and antiemetic Lipase elevated Will check stool for Cdiff if diarrhea continues Will start on on clear liquid diet Will repeat Lipase in am Will monitor electrolytes COVID 19 Positive Complaints of SOB on exertion Saturated well on RA Does meet criteria for Remdesevir, steroid and plasma convalescent since pt does not require any oxygen supplement Will check inflammatory markers ESR, CRP, Ferritin, LDH Will monitor closely Acute kidney injury Mostly due to N/V and poor oral intake Creatinine on admission 1.9 Will continue IVF Will hold lisinopril and metformin Will avoid any nephrotoxic agents Continue monitor BMP DM type 2 Uncontrolled DM with BS has been in the 400's with normal anion gap and B- hydroxybutyrate Will check Hba1c in am Will consult pharmacy for glycemic management Continue monitor BS Elevated Ddimer Mostly related to COVID 19 Unable to get a CTA chest due to BRIAN ( Doubt about PE since pt is saturated well on RA and no tachycardia) Will plan to get a doppler of LE extremity Elevated Lactic acid Mostly related to dehydration CXR showed no infiltrate, WBC normal and afebrile Lactic acid normalized after IV hydration Blood cx collected in the ER pending Will check procalcitonin and CB in am Continue monitor Tobacco abuse Counseling on smoking cessation Will add nicotine patch DVT px on Lovenox 40mg BID CODE STATUS FULL CODE History of Present Illness Chief Complaint: Vomiting/Diarrhea Primary Care Provider: NO PCP 60-year-old male with past medical history of diabetes type 2, hypertension, thrombosis of aorta, PE, GERD, depression, gout present to the ER with c/o of vomiting and diarrhea for the last 5 days. Pt said that he has been having poor appetite since he vomits anytime he eats something. He said that he also has recurrent episodes of watery diarrhea for the last few days. He said that he lost his taste and smell when his symptoms of diarrhea and vomiting started. He said that he feels weak and fatigue. He said that he becomes SOB with minimal exertion. He said that he did not have any diarrhea today. he said that his BS has been very high in the 400's and he is taking NPH 60mg TID. He denies any cough or fever. He tested positive in the ER for COVID 19. He said that he is having abdominal discomfort. He denies any contact to anyone positive for COVID 19. Denies any fever, chills, blood stool, hematemesis, palpitation, chest pain and SOB. Allergies Allergy/AdvReac Type Severity Reaction Status Date / Time morphine AdvReac Severe PT BECOMES Verified 04/28/20 17:59 VERY CONFUSED lorazepam AdvReac Confusion Unverified 04/28/20 18:00 Home Medications Medication Instructions Recorded Confirmed Type insulin NPH and regular human 60 units SUBCUT TID 06/24/18 04/28/20 History metformin 1,000 mg PO BID 06/24/18 04/28/20 History glipizide 5 mg PO BID 04/28/20 04/28/20 History lisinopril 20 mg PO DAILY 04/28/20 04/28/20 History omeprazole 20 mg PO DAILY PRN 04/28/20 04/28/20 History sertraline 100 mg PO BID 04/28/20 04/28/20 History simvastatin 40 mg PO QPM 04/28/20 04/28/20 History tamsulosin 0.4 mg PO DAILY 04/28/20 04/28/20 History Past Med/Surg History Medical History (Updated 04/28/20 @ 21:00 by RONALD Pederson) COPD (chronic obstructive pulmonary disease) Depression DM type 2 (diabetes mellitus, type 2) GERD (gastroesophageal reflux disease) History of pulmonary embolism when hospitalized for bacteremia and OM Hypertension MRSA bacteremia Osteoarthritis Rheumatoid arthritis Tobacco abuse Surgical History History of left hip replacement History of right hip replacement History of shoulder surgery Right x 2 Family History Father Diabetes Lung disease emphysema Mother Hypertension Denies family history of Heart disease Social History (Updated 06/24/18 @ 14:02 by Carrie Kelley PA-C) Smoking Status: Former smoker Tobacco Type: Cigarettes Cigarettes Per Day: 25-30pack history; Second Hand Exposure: No; Do You Dip or Chew Tobacco: Yes (can a day); Hx Alcohol Use: No Hx Substance Use: No Preferred Language: Guamanian Communication Ability: Effective Equipment Or Machinery Cleaner Required: No Beliefs That Will Affect Care: None marital status: Current Living Situation: Alone current occupational status: disabled Feels Safe at Home: Yes Safety Concerns: Feels Safe At This Time Assistive Devices: Glasses Review of Systems Review of Systems: All systems reviewed & are unremarkable except as noted in HPI & below Physical Exam Physical Exam: General- No acute distress Head- atraumatic Eyes- PERRL, EOMI, ENT- oropharynx clear Neck- supple, no JVD Lungs- clear to auscultation Heart- regular rhythm; no murmur Abdomen- normal bowel sounds, soft, Extremities- no calf tenderness Neuro- alert, oriented x 3; PERRL, EOMI; no facial palsy; no dysarthria Skin- warm & dry Results & Data Results & Data ([facility]) Vital Signs (Past 12 Hours) Vital Signs Temp Pulse Pulse Resp BP BP Pulse Ox 04/28/20 18:30 146/77 H 97 04/28/20 18:00 82 13 144/76 H 97 04/28/20 17:30 84 24 139/82 97 04/28/20 17:18 78 27 H 148/97 H 97 04/28/20 17:01 77 18 148/97 H 97 04/28/20 15:00 78 18 136/89 96 04/28/20 13:03 36.8 C 90 20 197/93 H 99 Diagnostic Findings SINGLE VIEW CHEST CLINICAL HISTORY: Dyspnea. FINDINGS: An AP, portable, upright chest radiograph is compared to study dated 06/25/2018 and correlated with chest CT dated 06/24/2018. The examination is degraded by portable technique, apical lordotic positioning, and patient rotation. The heart is top normal for projection. The pulmonary vasculature is noncongested. There is mild chronic elevation of the right hemidiaphragm and bibasilar atelectasis. A 15 mm nodule in the left midlung is unchanged from pre vious. No airspace consolidation or large pleural effusion is identified. There is no pneumothorax. This bony structures appear intact. Surgical anchors are noted in the right humeral head. IMPRESSION: No acute cardiopulmonary abnormality. ACT 112: Negative or not required by law. Electronically signed by: Biju Lucero M.D. 04/28/2020 2:23 PM Dictated: 04/28/20 1421Transcribed: 04/28/20 142 Code Status & VTE Plan VTE Prophylaxis Plan VTE Prophylaxis will be ordered: Yes
[2020-04-28] MEDS ORDERED: GLUCAGON FOR INJ 1 MG VIAL SQ PRN (20:57)
[2020-04-28] MEDS ORDERED: GLUCOSE 10 TABS/TUBE PO PRN (20:57)
[2020-04-28] MEDS ORDERED: DEXTROSE 50% 50 ML SYRINGE IV PRN (20:57)
[2020-04-28] MEDS ORDERED: GLUCOSE 40% GEL 15 GM TUBE PO PRN (20:57)
[2020-04-28] MEDS ORDERED: CARBOHYDRATES FOR HYPOGLYCEMIA PO PRN (20:57)
[2020-04-28] MEDS ORDERED: PANTOprazole 40 MG TAB PO PRN (21:05)
[2020-04-28] MEDS ORDERED: PHARMACY GLYCEMIC MGMT CONSULT PRN (21:05)
[2020-04-28] MEDS: SODIUM CHLORIDE 0.9% 1000ML 1,000 ML IV SCH (21:20)
[2020-04-28] MEDS: INSULIN GLARGINE SOLOSTAR 100 UNITS/ML 3 ML PEN SC SCH (21:38)
[2020-04-28] MEDS: INSULIN ASPART 100 UNITS/ML 3 ML PEN SC SCH ×2 (21:40→23:53)
[2020-04-28] MEDS: ENOXAPARIN INJ 40 MG/0.4 ML SYR SQ SCH (21:41)
[2020-04-28] MEDS: SERTRALINE HCL 100 MG TABLET PO SCH (22:17)
[2020-04-28] MEDS: SIMVASTATIN 40 MG TAB PO SCH (22:17)
[2020-04-29] MEDS: NICOTINE 14 MG/24 HR PATCH TD SCH ×2 (00:21→09:23)
[2020-04-29] MEDS: ONDANSETRON INJ 2 MG/ML 2 ML VIAL IV PRN ×2 (00:23→07:45)
[2020-04-29] MEDS: INSULIN ASPART 100 UNITS/ML 3 ML PEN SC SCH ×5 (04:22→21:04)
--- NOTE | 2020-04-29 06:56 | Electrocardiogram Report ---
Test Reason : Blood Pressure : / mmHG Vent. Rate : 075 BPM Atrial Rate : 075 BPM P-R Int : 222 ms QRS Dur : 088 ms QT Int : 364 ms P-R-T Axes : 050 -06 039 degrees QTc Int : 406 ms Sinus rhythm with 1st degree A-V block Otherwise normal ECG When compared with ECG of 25-JUN-2018 07:00, No significant change was found Confirmed by Benito Sanders ([id number]) on 04/29/2020 6:56:26 AM Referred By: REFERRED SELF Confirmed By:Benito Sanders
--- NOTE | 2020-04-29 07:11 | Ultrasound Report ---
US venous doppler LE BI CLINICAL HISTORY: Elevated d dimer COVID 19 POSITIVE PATIENT COMPARISON STUDY: 1119 FINDINGS: Real-time and color flow Doppler imaging were performed. Flow was seen within the femoral, popliteal and calf veins with no intraluminal thrombus demonstrated. The saphenous vein is patent. IMPRESSION: No evidence of lower extremity DVT. ACT 112: Negative or not required by law. Electronically signed by: Khalif Santiago M.D. 04/29/2020 7:09 AM
[2020-04-29] MEDS: SODIUM CHLORIDE 0.9% 1000ML 1,000 ML IV SCH ×2 (07:19→16:58)
[2020-04-29 08:51] LABS: Hemoglobin 14.2 g/dL (14.0-18.0); Mean Corpuscular Hemoglobin 29.9 pg (25-34); Mean Corpuscular Hgb Conc 34.6 g/dL (32-36); Mean Corpuscular Volume 86.3 fL (80-100); Mean Platelet Volume 12.5 fL (7.4-10.4); Platelet Count 150 K/uL (130-400); RDW Coefficient of Variation 14.1 % (11.5-14.5); RDW Standard Deviation 44.2 fL (36.4-46.3); Red Blood Count 4.75 M/uL (4.7-6.1); White Blood Count 12.87 K/uL (4.8-10.8)
--- NOTE | 2020-04-29 08:51 | Pharmacy Report ---
Pharmacy Glycemic Short Note 2 - Date of Service April 29, 2020 - Glycemic Short BSG Results (Last 24 hours): 04/28/20 04/28/20 04/28/20 13:07 15:03 20:54 Glucose 352 H* POC Glucose 439 H* 271 H 04/28/20 04/29/20 04/29/20 23:52 04:18 08:04 Glucose POC Glucose 184 H 79 84 OUTPATIENT ANTIDIABETIC REGIMEN: * Glipizide * Metformin * NPH/Regular pre-mixed insulin * A1c = pending 04/29/20 ASSESSMENT: * 60yo T2DM male admitted with vomiting, diarrhea secondary to COVID-19. Degree of outpatient diabetes control unknown- A1c pending for today. * Per previous admission; patient did well with Lantus 55 units SQ Q24hrs. Stated alightly below this last evening based on reduced PO intake/ vomiting, clear liquid diet. * Anticipating insulin regimen will need decreased for the next 24hrs d/t : * AM Fasting BSG = 84 mg/dl which is below goal range for inpatient targets therefore Basal insulin needs decreased. Since PO intake variable/minimal will dose basal per scale based on BSG * Will continue weight based dosing of CF/CR PLAN FOR INPATIENT GLYCEMIC CONTROL: * Hold outpatient oral diabetes medications * Basal insulin * Lantus BID based on BSG * BSG < 100 mg/dl --> 0 units * BSG 100-140 mg/dl --> 10 units * BSG 140-180 mg/dl --> 20 units * BSG >180 mg/dl --> 30 units * Bolus insulin * NovoLog per scale ACHS or Q6hrs while NPO * Goal Range: Low 110 mg/dL - High 140 mg/dL * Correction Factor: 15 mg/dL/unit * Nutritional / Prandial insulin per carb ratio of 1 unit per 5 grams CHO consumed
[2020-04-29 09:20] LABS: Estimated Average Glucose 229 mg/dl; Hemoglobin A1C 9.6 % (4.5-5.6)
[2020-04-29] MEDS: INSULIN GLARGINE SOLOSTAR 100 UNITS/ML 3 ML PEN SC SCH ×2 (09:20→21:03)
[2020-04-29 09:24] LABS: Blood Urea Nitrogen 50 mg/dl (7-18); Calcium 9.2 mg/dl (8.5-10.1); Carbon Dioxide 18 mmol/L (21-32); Chloride 112 mmol/L (98-107); Creatinine Clr Calc Pharmacy 67.3 ml/min; Est GFR (African American) 63.5; Est GFR (Non-African American) 54.8; Glucose 83 mg/dl (70-99); Lipase 444 U/L (73-393); Potassium 4.2 mmol/L (3.5-5.1); Sodium 138 mmol/L (136-145)
[2020-04-29] MEDS: ENOXAPARIN INJ 40 MG/0.4 ML SYR SQ SCH ×2 (09:25→20:03)
[2020-04-29] MEDS: SERTRALINE HCL 100 MG TABLET PO SCH ×2 (09:26→20:03)
[2020-04-29 09:28] LABS: C Reactive Protein < 0.29 mg/dl (0-0.29); Ferritin 266.7 ng/ml (8-388)
[2020-04-29] MEDS ORDERED: HYDROCODONE/ACETAMOPHEN 5/325MG TAB PO ONE (10:32)
[2020-04-29] MEDS: TAMSULOSIN HCL 0.4 MG CAP PO SCH (10:35)
[2020-04-29] MEDS: HYDROCODONE/ACETAMOPHEN 5/325MG TAB PO PRN ×2 (17:01→23:51)
--- NOTE | 2020-04-29 18:51 | Hospitalist Progress Note ---
Date of Service April 29, 2020 Assessment & Plan (1) Vomiting and diarrhea: 60-year-old male with history of diabetes type 2, hypertension, allergic thrombosis, PE, GERD presenting with vomiting and diarrhea. Vomiting and diarrhea, secondary to COVID-19 infection Resolving Advance diet to soft Continue IV fluids Acute kidney injury Secondary to diarrhea Creatinine on admission 1.9 Improved to 1.3 Will hold lisinopril and metformin Will avoid any nephrotoxic agents Continue monitor BMP COVID 19 infection Still saturating well on room air Does meet criteria for Remdesevir, steroid and plasma convalescent since pt does not require any oxygen supplement Chest x-ray: No infiltrates Continue to monitor closely On Lovenox for DVT prophylaxis Elevated D-dimer Level is 3400 Doppler study of the lower extremity: Negative If creatinine is stable tomorrow, will proceed with CT angiogram of the chest to rule out PE Patient's shortness of breath resolving DM type 2, uncontrolled BS has been in the 400's with normal anion gap and B-hydroxybutyrate A1c 9.6 Pharmacy consulted for glycemic control assistant health educator consulted Elevated Lactic acid Lactic acid normalized after IV hydration Mostly related to dehydration CXR showed no infiltrate, WBC normal and afebrile Blood cx: Pending Will check procalcitonin negative Continue monitor Tobacco abuse Counseling on smoking cessation nicotine patch DVT px on Lovenox 40mg BID CODE STATUS FULL CODE Disposition Pending Anticipate discharge to home medical history Admission and Anticipated Discharge Date Admission Date: April 28, 2020 Subjective Follow-up for Covid 19 infection, nausea and diarrhea, acute renal failure, etc. Seen resting in bed, comfortable, watching TV In good spirits States he feels improved today compared to yesterday Diarrhea is improving No letter to be advanced No abdominal pain No shortness of breath, has minimal cough, dry denies other symptoms Review of Systems Review of Systems: All systems reviewed & are unremarkable except as noted in Subjective Physical Exam Physical Exam: General- oriented x 3, not in distress, speaks in sentences with no effort or accessory muscle use Head- atraumatic Eyes- PERRL, EOMI, anicteric ENT- oropharynx clear Neck- supple, no JVD, no adenopathy, no thyromegaly; carotids +2/2, no bruits appreciated Lungs- clear to auscultation bilaterally, no rales/wheezes Heart- normal rate, regular rhythm; no murmur, no gallop, no rub appreciated Abdomen- normal bowel sounds, nondistended, soft, nontender, no masses or hepatosplenomegaly Extremities- no pretibial edema, no calf tenderness; peripheral pulses intact Neuro- alert, oriented x 3; CN 2-12 grossly intact; motor 5/5 bilaterally;sensation 100% on all extremities; no other gross focal neurologic deficits Skin- warm & dry Results & Data Results & Data ([facility]) Vital Signs (Past 12 Hours) Vital Signs Temp Pulse Resp BP Pulse Ox 04/29/20 15:23 36.8 C 71 17 135/80 97 04/29/20 07:10 36.6 C 60 20 128/67 98 Laboratory Results Laboratory Results - last 24 hr 04/28/20 04/28/20 04/29/20 20:54 23:52 04:18 WBC RBC Hgb Hct MCV MCH MCHC RDW Std Deviation RDW Coeff of Purvi Plt Count MPV ESR Sodium Potassium Chloride Carbon Dioxide Anion Gap BUN Creatinine Est Cr Clr Drug Dosing Est GFR ( Amer) Est GFR (Non-Af Amer) BUN/Creatinine Ratio Glucose POC Glucose 271 H 184 H 79 Estimat Average Glucose Hemoglobin A1c Calcium Ferritin Lactate Dehydrogenase C-Reactive Protein Lipase Procalcitonin 04/29/20 04/29/20 04/29/20 08:04 08:17 08:17 WBC 12.87 H RBC 4.75 Hgb 14.2 Hct 41.0 L MCV 86.3 MCH 29.9 MCHC 34.6 RDW Std Deviation 44.2 RDW Coeff of Purvi 14.1 Plt Count 150 MPV 12.5 H ESR 12 Sodium Potassium Chloride Carbon Dioxide Anion Gap BUN Creatinine Est Cr Clr Drug Dosing Est GFR ( Amer) Est GFR (Non-Af Amer) BUN/Creatinine Ratio Glucose POC Glucose 84 Estimat Average Glucose Hemoglobin A1c Calcium Ferritin Lactate Dehydrogenase C-Reactive Protein Lipase Procalcitonin 04/29/20 04/29/20 04/29/20 08:17 08:17 08:17 WBC RBC Hgb Hct MCV MCH MCHC RDW Std Deviation RDW Coeff of Purvi Plt Count MPV ESR Sodium 138 Potassium 4.2 Chloride 112 H Carbon Dioxide 18 L Anion Gap 8.0 BUN 50 H Creatinine 1.38 D Est Cr Clr Drug Dosing 67.3 Est GFR ( Amer) 63.5 Est GFR (Non-Af Amer) 54.8 BUN/Creatinine Ratio 36.0 H Glucose 83 POC Glucose Estimat Average Glucose Hemoglobin A1c Calcium 9.2 Ferritin 266.7 Lactate Dehydrogenase 199 C-Reactive Protein < 0.29 Lipase 444 H Procalcitonin < 0.05 04/29/20 04/29/20 04/29/20 08:17 12:06 17:10 WBC RBC Hgb Hct MCV MCH MCHC RDW Std Deviation RDW Coeff of Purvi Plt Count MPV ESR Sodium Potassium Chloride Carbon Dioxide Anion Gap BUN Creatinine Est Cr Clr Drug Dosing Est GFR ( Amer) Est GFR (Non-Af Amer) BUN/Creatinine Ratio Glucose POC Glucose 132 H 148 H Estimat Average Glucose 229 Hemoglobin A1c 9.6 H Calcium Ferritin Lactate Dehydrogenase C-Reactive Protein Lipase Procalcitonin
[2020-04-29] MEDS: SIMVASTATIN 40 MG TAB PO SCH (20:03)
[2020-04-30] MEDS: SODIUM CHLORIDE 0.9% 1000ML 1,000 ML IV SCH ×2 (01:56→11:59)
[2020-04-30] MEDS: HYDROCODONE/ACETAMOPHEN 5/325MG TAB PO PRN ×3 (06:04→22:01)
[2020-04-30] MEDS: ENOXAPARIN INJ 40 MG/0.4 ML SYR SQ SCH ×2 (09:22→20:48)
[2020-04-30] MEDS: SERTRALINE HCL 100 MG TABLET PO SCH ×2 (09:22→20:48)
[2020-04-30] MEDS: TAMSULOSIN HCL 0.4 MG CAP PO SCH (09:22)
[2020-04-30] MEDS: INSULIN ASPART 100 UNITS/ML 3 ML PEN SC SCH ×4 (09:23→20:50)
[2020-04-30] MEDS: NICOTINE 14 MG/24 HR PATCH TD SCH (09:24)
--- NOTE | 2020-04-30 10:28 | Pharmacy Report ---
Pharmacy Glycemic Short Note 2 - Date of Service April 30, 2020 - Glycemic Short BSG Results (Last 24 hours): 04/29/20 04/29/20 04/29/20 12:06 17:10 20:43 POC Glucose 132 H 148 H 190 H 04/30/20 08:19 POC Glucose 104 H OUTPATIENT ANTIDIABETIC REGIMEN: * Glipizide * Metformin * NPH/Regular pre-mixed insulin * A1c = pending 04/29/20 ASSESSMENT: 04/30: * Patient received 54 units of insulin over the past 24hrs * 30 units of basal insulin {Lantus} * 24 units of prandial/correctional insulin {NovoLog} * BSGs ranging 84 - 190mg/dl over the past 24hrs * AM Fasting BSG = 104 mg/d; this is in goal range for inpatient targets. Diet advanced from clears to T2DM. May need to titrate basal insulin upwards as PO intake increases; pt did well with Lantus 55 units SQ HS last admission {not a pharm consult} * Total daily dose is pretty evenly distributed 50%:50% basal:prandial to prevent hypo/hyperglycemia * No changs needed to CF/CR; will re-evaluate once PO intake increases 04/29: * 60yo T2DM male admitted with vomiting, diarrhea secondary to COVID-19. Degree of outpatient diabetes control unknown- A1c pending for today. * Per previous admission; patient did well with Lantus 55 units SQ Q24hrs. Stated slightly below this last evening based on reduced PO intake/ vomiting, clear liquid diet. * Anticipating insulin regimen will need decreased for the next 24hrs d/t : * AM Fasting BSG = 84 mg/dl which is below goal range for inpatient targets therefore Basal insulin needs decreased. Since PO intake variable/minimal will dose basal per scale based on BSG * Will continue weight based dosing of CF/CR PLAN FOR INPATIENT GLYCEMIC CONTROL: No change today * Hold outpatient oral diabetes medications * Basal insulin * Lantus 30 units SQ HS * Bolus insulin * NovoLog per scale ACHS or Q6hrs while NPO * Goal Range: Low 110 mg/dL - High 140 mg/dL * Correction Factor: 15 mg/dL/unit * Nutritional / Prandial insulin per carb ratio of 1 unit per 5 grams CHO consumed
[2020-04-30] MEDS ORDERED: LEVALBUTEROL TARTRATE 15 GM HFA.AER.AD INH PRN (14:40)
[2020-04-30] MEDS ORDERED: MELATONIN 3 MG TAB PO PRN (14:40)
[2020-04-30 15:34] LABS: Basophils # (auto) 0.04 K/uL (0-0.2); Basophils % (auto) 0.4 %; Eosinophils # (auto) 0.38 K/uL (0-0.5); Eosinophils % (auto) 4.2 %; Hematocrit (blood only) 36.9 % (42-52); Hemoglobin 12.8 g/dL (14.0-18.0); Immature Granulocytes # (auto) 0.14 K/uL (0.00-0.02); Immature Granulocytes % (auto) 1.5 %; Lymphocytes # (auto) 1.67 K/uL (1.2-3.4); Lymphocytes % (auto) 18.3 %; Mean Corpuscular Hemoglobin 29.1 pg (25-34); Mean Corpuscular Hgb Conc 34.7 g/dL (32-36); Mean Corpuscular Volume 83.9 fL (80-100); Mean Platelet Volume 11.8 fL (7.4-10.4); Monocytes # (auto) 0.96 K/uL (0.11-0.59); Monocytes % (auto) 10.5 %; Neutrophils # (auto) 5.92 K/uL (1.4-6.5); Neutrophils % (auto) 65.1 %; Platelet Count 132 K/uL (130-400); RDW Coefficient of Variation 13.7 % (11.5-14.5); RDW Standard Deviation 41.9 fL (36.4-46.3); White Blood Count 9.11 K/uL (4.8-10.8)
[2020-04-30 15:54] LABS: BUN Creatinine Ratio 22.1 (10-20); Creatinine Clr Calc Pharmacy 82.2 ml/min; Est GFR (African American) 80.9; Est GFR (Non-African American) 69.8; Potassium 4.5 mmol/L (3.5-5.1)
[2020-04-30] MEDS ORDERED: OPTIRAY 320 125ml IV ONE (19:01)
--- NOTE | 2020-04-30 19:18 | CT Scan Report ---
CT ANGIOGRAM OF THE CHEST CLINICAL HISTORY: Atypical chest pain and shortness of breath. Possible pulmonary embolism. COMPARISON STUDY: June 2018, chest x-ray dated 04/28/2020 TECHNIQUE: Following the IV administration of 118 mL of Optiray-320, CT angiogram of the thorax was p erformed from the thoracic inlet to the lung bases utilizing the pulmonary embolus protocol. Images a re reviewed in the axial, sagittal, and coronal planes. IV contrast was administered without complica tion. MIP imaging was performed. A dose lowering technique was utilized adhering to the principles o f ALARA. CT DOSE: 541.44 mGycm FINDINGS: There is mild asymmetric enlargement of the left lobe the thyroid. There is a 2.5 mm left lobe calcif ication. No pathologically enlarged axillary mediastinal or hilar lymph nodes were visualized. There was no evidence of thoracic aortic dilatation. Pulmonary to opacification is slightly less than optimal. There are no pulmonary artery filling defec ts to indicate acute pulmonary embolism. Evaluation of subsegmental pulmonary artery branches is jang isauro limited. No pleural effusions are visualized. There are subtle groundglass pulmonary opacities most pronounced within the right upper lobe and righ t middle lobe. There are also however groundglass opacities within the left lower lobe. The findings are suspicious for a multifocal pneumonitis. There is a calcified left lower lobe granuloma. There is hepatic steatosis. IMPRESSION: 1. Suboptimal pulmonary arterial opacification, but no evidence of acute pulmonary embolism 2. Subtle bilateral groundglass pulmonary opacities, consistent with a multifocal pneumonia, likely v iral 3. Hepatic steatosis ACT 112: Negative or not required by law. Electronically signed by: Khalif Santiago M.D. 04/30/2020 7:17 PM
--- NOTE | 2020-04-30 19:45 | Hospitalist Progress Note ---
Date of Service April 30, 2020 Assessment & Plan (1) Vomiting and diarrhea: 60-year-old male with history of diabetes type 2, hypertension, allergic thrombosis, PE, GERD presenting with vomiting and diarrhea. Vomiting and diarrhea, secondary to COVID-19 infection Resolved Regular diet DC IV fluids Acute kidney injury Secondary to diarrhea Creatinine on admission 1.9 Improved to 1.1 Resume lisinopril Will avoid any nephrotoxic agents Continue monitor BMP COVID 19 infection Still saturating well on room air Does meet criteria for Remdesevir, steroid and plasma convalescent since pt does not require any oxygen supplement Chest x-ray: No infiltrates Continue to monitor closely On Lovenox for DVT prophylaxis Elevated D-dimer Level is 3400 Doppler study of the lower extremity: Negative CT angiogram of the chest: No PE DM type 2, uncontrolled BS has been in the 400's with normal anion gap and B-hydroxybutyrate A1c 9.6 Pharmacy consulted for glycemic control clinical trial educator consulted Elevated Lactic acid Lactic acid normalized after IV hydration Mostly related to dehydration CXR showed no infiltrate, WBC normal and afebrile Blood cx: Negative procalcitonin negative Continue monitor Tobacco abuse Counseling on smoking cessation nicotine patch DVT px on Lovenox 40mg BID CODE STATUS FULL CODE Disposition Pending Anticipate discharge to home when medically stable Admission and Anticipated Discharge Date Admission Date: April 28, 2020 Subjective Follow-up for COVID-19 infection, acute renal failure secondary to GI losses Resting in bed, comfortable, not in distress States he continues to feel better Has mild shortness of breath and bilateral chest discomfort Abdominal pain has resolved, no nausea vomiting or diarrhea Tolerating diet well No other symptoms Review of Systems Review of Systems: All systems reviewed & are unremarkable except as noted in Subjective Physical Exam Physical Exam: General- oriented x 3, not in distress, speaks in sentences with no effort or accessory muscle use Eyes- anicteric Neck- no JVD Lungs- clear breath sounds bilaterally, no wheezing, no crackles tolerated Heart- normal rate, regular rhythm; no murmurs Abdomen- normal bowel sounds, nondistended, soft, nontender Extremities- no pretibial edema, no calf tenderness Neuro- alert, oriented x 3; no gross focal neurologic deficits Skin- warm & dry Results & Data Results & Data ([facility]) Vital Signs (Past 12 Hours) Vital Signs Temp Pulse BP Pulse Ox 04/30/20 19:20 168/78 H 04/30/20 15:53 36.4 C L 77 186/94 H 99 04/30/20 12:51 36.7 C 63 150/76 H 96 Laboratory Results Laboratory Results - last 24 hr 04/29/20 04/30/20 04/30/20 20:43 08:19 12:26 WBC RBC Hgb Hct MCV MCH MCHC RDW Std Deviation RDW Coeff of Purvi Plt Count MPV Immature Gran % (Auto) Neut % (Auto) Lymph % (Auto) [place] % (Auto) Eos % (Auto) Baso % (Auto) Neut # (Auto) Lymph # (Auto) [place] # (Auto) Eos # (Auto) Baso # (Auto) Immature Gran # (Auto) Sodium Potassium Chloride Carbon Dioxide Anion Gap BUN Creatinine Est Cr Clr Drug Dosing Est GFR ( Amer) Est GFR (Non-Af Amer) BUN/Creatinine Ratio Glucose POC Glucose 190 H 104 H 134 H Calcium Specimen Hemolysis 04/30/20 04/30/20 04/30/20 15:18 15:18 17:14 WBC 9.11 RBC 4.40 L Hgb 12.8 L Hct 36.9 L MCV 83.9 MCH 29.1 MCHC 34.7 RDW Std Deviation 41.9 RDW Coeff of Purvi 13.7 Plt Count 132 MPV 11.8 H Immature Gran % (Auto) 1.5 Neut % (Auto) 65.1 Lymph % (Auto) 18.3 [place] % (Auto) 10.5 Eos % (Auto) 4.2 Baso % (Auto) 0.4 Neut # (Auto) 5.92 Lymph # (Auto) 1.67 [place] # (Auto) 0.96 H Eos # (Auto) 0.38 Baso # (Auto) 0.04 Immature Gran # (Auto) 0.14 H Sodium 138 Potassium 4.5 Chloride 113 H Carbon Dioxide 18 L Anion Gap 7.0 BUN 25 H Creatinine 1.13 Est Cr Clr Drug Dosing 82.2 Est GFR ( Amer) 80.9 Est GFR (Non-Af Amer) 69.8 BUN/Creatinine Ratio 22.1 H Glucose 187 H POC Glucose 190 H Calcium 8.0 L Specimen Hemolysis
[2020-04-30] MEDS ORDERED: hydrALAZINE HCL 20 MG/ML VIAL IV PRN (20:06)
[2020-04-30] MEDS: SIMVASTATIN 40 MG TAB PO SCH (20:48)
[2020-04-30] MEDS: INSULIN GLARGINE SOLOSTAR 100 UNITS/ML 3 ML PEN SC SCH (20:49)
[2020-05-01] MEDS: HYDROCODONE/ACETAMOPHEN 5/325MG TAB PO PRN ×2 (04:49→10:40)
[2020-05-01 07:32] LABS: BUN Creatinine Ratio 18.5 (10-20); Calcium 8.6 mg/dl (8.5-10.1); Creatinine Clr Calc Pharmacy 84.5 ml/min; Est GFR (African American) 83.5; Est GFR (Non-African American) 72.1; Potassium 3.8 mmol/L (3.5-5.1)
[2020-05-01] MEDS: TAMSULOSIN HCL 0.4 MG CAP PO SCH (08:20)
[2020-05-01] MEDS: SERTRALINE HCL 100 MG TABLET PO SCH (08:20)
[2020-05-01] MEDS: ENOXAPARIN INJ 40 MG/0.4 ML SYR SQ SCH (08:20)
[2020-05-01] MEDS: NICOTINE 14 MG/24 HR PATCH TD SCH (08:21)
[2020-05-01] MEDS: INSULIN ASPART 100 UNITS/ML 3 ML PEN SC SCH ×2 (08:45→12:39)
[2020-05-01] MEDS ORDERED: lisinopril 20 MG TAB PO SCH (09:00)
--- NOTE | 2020-05-05 14:03 | Hospitalist Progress Note ---
Date of Service delayed entry date of service 05/01/2020 May 05, 2020 Assessment & Plan (1) Vomiting and diarrhea: 60-year-old male with history of diabetes type 2, hypertension, allergic thrombosis, PE, GERD presenting with vomiting and diarrhea. Vomiting and diarrhea, secondary to COVID-19 infection Resolved given IV fluids diet advanced to regular Acute kidney injury Secondary to diarrhea Creatinine on admission 1.9 Improved to 1.1 Resume lisinopril avoid any nephrotoxic agents COVID 19 infection Still saturating well on room air Does meet criteria for Remdesevir, steroid and plasma convalescent since pt does not require any oxygen supplement Chest x-ray: No infiltrates given Lovenox for DVT prophylaxis isolation instructions given Elevated D-dimer Level is 3400 Doppler study of the lower extremity: Negative CT angiogram of the chest: No PE DM type 2, uncontrolled BS has been in the 400's with normal anion gap and B-hydroxybutyrate A1c 9.6 Pharmacy consulted for glycemic control software educator consulted patient reports he only uses Insulin every other week due to financial constraints medical insurance will have better coverage next month as per patient encouraged to use Insulin regularly please monitor closely given PRN [place] for neuropathic pain Elevated Lactic acid Lactic acid normalized after IV hydration Mostly related to dehydration CXR showed no infiltrate, WBC normal and afebrile Blood cx: Negative procalcitonin negative Continue monitor Tobacco abuse Counseling on smoking cessation nicotine patch DVT px on Lovenox 40mg BID given CODE STATUS FULL CODE Disposition d/c home when medically stable ff up with PCP in 1 week Admission and Anticipated Discharge Date Admission Date: April 28, 2020 Subjective ff up for covid 19 infection, dehydration etc seen resting in bed, comfortable in good spirits states he feels fine overall denies dyspnea, cough, chest pain no diarrhea appetite great no other symptoms states he is ready and would like to be discharged soon Review of Systems Review of Systems: All systems reviewed & are unremarkable except as noted in Subjective Physical Exam Physical Exam: General- oriented x 3, not in distress, speaks in sentences with no effort or accessory muscle use Eyes- anicteric Neck- no JVD Lungs- clear BS BL Heart- normal rate, regular rhythm; no murmurs Abdomen- normal bowel sounds, nondistended, soft, nontender Extremities- no pretibial edema, no calf tenderness Neuro- alert, oriented x 3; no gross focal neurologic deficits Skin- warm & dry Results & Data Results & Data ([facility]) Laboratory Results noted and reviewed
--- NOTE | 2020-05-05 14:07 | Discharge Summary ---
Date of Service May 05, 2020 Admission HPI Per Admitting Provider 60-year-old male with past medical history of diabetes type 2, hypertension, thrombosis of aorta, PE, GERD, depression, gout present to the ER with c/o of vomiting and diarrhea for the last 5 days. Pt said that he has been having poor appetite since he vomits anytime he eats something. He said that he also has recurrent episodes of watery diarrhea for the last few days. He said that he lost his taste and smell when his symptoms of diarrhea and vomiting started. He said that he feels weak and fatigue. He said that he becomes SOB with minimal exertion. He said that he did not have any diarrhea today. he said that his BS has been very high in the 400's and he is taking NPH 60mg TID. He denies any cough or fever. He tested positive in the ER for COVID 19. He said that he is having abdominal discomfort. He denies any contact to anyone positive for COVID 19. Denies any fever, chills, blood stool, hematemesis, palpitation, chest pain and SOB. Admission Exam Per Admitting Provider General- No acute distress Head- atraumatic Eyes- PERRL, EOMI, ENT- oropharynx clear Neck- supple, no JVD Lungs- clear to auscultation Heart- regular rhythm; no murmur Abdomen- normal bowel sounds, soft, Extremities- no calf tenderness Neuro- alert, oriented x 3; PERRL, EOMI; no facial palsy; no dysarthria Skin- warm & dry Principal Diagnosis COVID 19 infection Diarrhea Discharge Exam General- oriented x 3, not in distress, speaks in sentences with no effort or accessory muscle use Eyes- anicteric Neck- no JVD Lungs- clear BS BL Heart- normal rate, regular rhythm; no murmurs Abdomen- normal bowel sounds, nondistended, soft, nontender Extremities- no pretibial edema, no calf tenderness Neuro- alert, oriented x 3; no gross focal neurologic deficits Skin- warm & dry Discharge Data Allergies Allergy/AdvReac Type Severity Reaction Status Date / Time morphine AdvReac Severe PT BECOMES Verified 04/28/20 17:59 VERY CONFUSED lorazepam AdvReac Confusion Unverified 04/28/20 18:00 Consultations 04/28/20 17:38 ED Decision to Admit Stat Ordered Studies 04/28/20 20:57 US venous doppler LE Urgent IMPRESSION: No evidence of lower extremity DVT. 04/30/20 16:30 CT angio chest PE protocol Routine There is mild asymmetric enlargement of the left lobe the thyroid. There is a 2.5 mm left lobe calcification. No pathologically enlarged axillary mediastinal or hilar lymph nodes were visualized. There was no evidence of thoracic aortic dilatation. Pulmonary to opacification is slightly less than optimal. There are no pulmonary artery filling defects to indicate acute pulmonary embolism. Evaluation of subsegmental pulmonary artery branches is however limited. No pleural effusions are visualized. There are subtle groundglass pulmonary opacities most pronounced within the right upper lobe and right middle lobe. There are also however groundglass opacities within the left lower lobe. The findings are suspicious for a multifocal pneumonitis. There is a calcified left lower lobe granuloma. There is hepatic steatosis. IMPRESSION: 1. Suboptimal pulmonary arterial opacification, but no evidence of acute pulmonary embolism 2. Subtle bilateral groundglass pulmonary opacities, consistent with a multifocal pneumonia, likely viral 3. Hepatic steatosis CXR: FINDINGS: An AP, portable, upright chest radiograph is compared to study dated 06/25/2018 and correlated with chest CT dated 06/24/2018. The examination is degraded by portable technique, apical lordotic positioning, and patient rotation. The heart is top normal for projection. The pulmonary vasculature is noncongested. There is mild chronic elevation of the right hemidiaphragm and bibasilar atelectasis. A 15 mm nodule in the left midlung is unchanged from previous. No airspace consolidation or large pleural effusion is identified. There is no pneumothorax. This bony structures appear intact. Surgical anchors are noted in the right humeral head. IMPRESSION: No acute cardiopulmonary abnormality. Hospital Course (1) Vomiting and diarrhea: 60-year-old male with history of diabetes type 2, hypertension, allergic thrombosis, PE, GERD presenting with vomiting and diarrhea. Vomiting and diarrhea, secondary to COVID-19 infection Resolved given IV fluids diet advanced to regular Acute kidney injury Secondary to diarrhea Creatinine on admission 1.9 Improved to 1.1 Resume lisinopril avoid any nephrotoxic agents COVID 19 infection Still saturating well on room air Does meet criteria for Remdesevir, steroid and plasma convalescent since pt does not require any oxygen supplement Chest x-ray: No infiltrates given Lovenox for DVT prophylaxis isolation instructions given Elevated D-dimer Level is 3400 Doppler study of the lower extremity: Negative CT angiogram of the chest: No PE DM type 2, uncontrolled BS has been in the 400's with normal anion gap and B-hydroxybutyrate A1c 9.6 Pharmacy consulted for glycemic control 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 patient reports he only uses Insulin every other week due to financial constraints medical insurance will have better coverage next month as per patient encouraged to use Insulin regularly please monitor closely given PRN [place] for neuropathic pain Elevated Lactic acid Lactic acid normalized after IV hydration Mostly related to dehydration CXR showed no infiltrate, WBC normal and afebrile Blood cx: Negative procalcitonin negative Continue monitor Tobacco abuse Counseling on smoking cessation nicotine patch Abnormal CT Chest Findings please refer to full report above There is mild asymmetric enlargement of the left lobe the thyroid. There is a 2.5 mm left lobe calcification. There is a calcified left lower lobe granuloma. There is hepatic steatosis. outpatient work up and management Abnormal CXR please refer to full report above A 15 mm nodule in the left midlung is unchanged from previous outpatient work up and management DVT px on Lovenox 40mg BID given CODE STATUS FULL CODE Disposition d/c home when medically stable ff up with PCP in 1 week Total Time Total Time Spent Total Time Spent (In Minutes): > 30 minutes Discharge Plan Discharge Items Patient Disposition: Home - Self-Care Reason For Visit: VOMITING/DIARRHEA Discharge Diagnosis: KIDNEY INJURY SECONDARY TO DEHYDRATION COVID 19 INFECTION Condition on Discharge: Good Activity: Resume your previous activity Activity Comment: GRADUALLY TOLERATED Non-emergency contact: Primary Care Provider Call non-emergency contact if: you have any medication questions, your symptoms worsen, your pain is not controlled, your pain is worsening, your pain is unusual for you, your pain is concerning for you and you have a fever Follow-up/Referrals: PCP,NO [Primary Care Provider] - Diet: Carb Consistent or DM2 and Heart Healthy Addtl Attending Provider Instructions: DRINK PLENTY OF FLUIDS. PLEASE TAKE INSULIN CONSISTENTLY EVERYDAY, EVERY WEEK. CONTINUE CLOSE FOLLOW UP WITH PRIMARY CARE PHYSICIAN FOR DIABETES CONTROL. FOLLOW UP WITH PRIMARY CARE PHYSICIAN IN 1 WEEK. THE CLINIC WILL BE CALLING YOU SOON FOR THE APPOINTMENT. YOU STILL NEED TO ISOLATE AT HOME FOR AT LEAST 10 DAYS OR LONGER IF YOU ARE STILL HAVING SYMPTOMS LIKE COUGHING,ETC. CONFIRM WITH YOUR PRIMARY CARE PHYSICIAN ON WHEN YOU CAN BE OFF ISOLATION. Home Isolation COVID-19 Instructions The following information about Home Isolation is from the CDC Website: https://www.cdc.gov/coronavirus/2019-ncov/hcp/cxtbshks-jykupbj-ubqwmv.html Stay home except to get medical care People who are mildly ill with COVID-19 are able to isolate at home during their illness. You should restrict activities outside your home, except for getting medical care. Do not go to work, school, or public areas. Avoid using public transportation, ride-sharing, or taxis. Separate yourself from other people and animals in your home People: As much as possible, you should stay in a specific room and away from other people in your home. Also, you should use a separate bathroom, if available. Animals: You should restrict contact with pets and other animals while you are sick with COVID-19, just like you would around other people. Although there have not been reports of pets or other animals becoming sick with COVID-19, it is still recommended that people sick with COVID-19 limit contact with animals until more information is known about the virus. When possible, have another member of your household care for your animals while you are sick. If you are sick with COVID-19, avoid contact with your pet, including petting, snuggling, being kissed or licked, and sharing food. If you must care for your pet or be around animals while you are sick, wash your hands before and after you interact with pets and wear a face mask. Call ahead before visiting your doctor If you have a medical appointment, call the healthcare provider and tell them that you have or may have COVID-19. This will help the healthcare providers office take steps to keep other people from getting infected or exposed. Wear a face mask You should wear a face mask when you are around other people (e.g., sharing a room or vehicle) or pets and before you enter a healthcare providers office. If you are not able to wear a face mask (for example, because it causes trouble breathing), then people who live with you should not stay in the same room with you, or they should wear a face mask if they enter your room. Cover your coughs and sneezes Cover your mouth and nose with a tissue when you cough or sneeze. Throw used ti ssues in a lined trash can. Immediately wash your hands with soap and water for at least 20 seconds or, if soap and water are not available, clean your hands with an alcohol-based hand corner cutter that contains at least 60% alcohol. Clean your hands often Wash your hands often with soap and water for at least 20 seconds, especially after blowing your nose, coughing, or sneezing; going to the bathroom; and before eating or preparing food. If soap and water are not readily available, use an alcohol-based hand corner cutter with at least 60% alcohol, covering all surfaces of your hands and rubbing them together until they feel dry. Soap and water are the best option if hands are visibly dirty. Avoid touching your eyes, nose, and mouth with unwashed hands. Avoid sharing personal household items You should not share dishes, drinking glasses, cups, eating utensils, towels, or bedding with other people or pets in your home. After using these items, they should be washed thoroughly with soap and water. Clean all high-touch surfaces everyday High touch surfaces include counters, tabletops, doorknobs, bathroom fixtures, toilets, phones, keyboards, tablets, and bedside tables. Also, clean any surfaces that may have blood, stool, or body fluids on them. Use a household cleaning spray or wipe, according to the label instructions. Labels contain instructions for safe and effective use of the cleaning product including precautions you should take when applying the product, such as wearing gloves and making sure you have good ventilation during use of the product. Monitor your symptoms Seek prompt medical attention if your illness is worsening (e.g., difficulty breathing).Beforeseeking care, call your healthcare provider and tell them that you have, or are being evaluated for, COVID-19. Put on a face mask before you enter the facility. These steps will help the healthcare providers office to keep other people in the office or waiting room from getting infected or exposed. Ask your healthcare provider to call the local or state health department. Persons who are placed under active monitoring or facilitated self- monitoring should follow instructions provided by their local health department or occupational health professionals, as appropriate. When working with your local health department check their available hours. If you have a medical emergency and need to call 911, notify the dispatch personnel that you have, or are being evaluated for COVID-19. If possible, put on a face mask before emergency medical services arrive. Discontinuing home isolation Patients with confirmed COVID-19 should remain under home isolation precautions until the risk of secondary transmission to others is thought to be low. The decision to discontinue home isolation precautions should be made on a [id number] basis, in consultation with healthcare providers and state and local health departments. Pending Studies at Discharge: No Stand-Alone Forms: My [facility], Smoking Cessation Medications and DC Order Prescriptions: New levalbuterol tartrate [Xopenex HFA] 45 mcg/actuation Hfa Aerosol Inhaler 2 puff inhalation QID PRN (Reason: shortness of breath or wheezing) Qty: 15 RF: 2 hydrocodone-acetaminophen [[place]] 5-325 mg Tablet 1 tab PO Q6H PRN (Reason: pain) Qty: 10 RF: 0 Continued insulin NPH and regular human 100 unit/mL (70-30) suspension 60 units subcut TID RF: 0 metformin 1,000 mg tablet 1,000 mg PO BID RF: 0 lisinopril 20 mg tablet 20 mg PO DAILY RF: 0 omeprazole 20 mg capsule,delayed release(DR/EC) 20 mg PO DAILY PRN (Reason: Gi Upset) RF: 0 sertraline 100 mg tablet 100 mg PO BID RF: 0 glipizide 5 mg tablet extended release 24hr 5 mg PO BID RF: 0 tamsulosin 0.4 mg capsule 0.4 mg PO DAILY RF: 0 simvastatin 40 mg tablet 40 mg PO QPM RF: 0 Discharge Orders: Discharge Order (Routine); Ordered 05/01/20 Ordered By: Shaquille Thomson Admission Data Admit Date/Time: 04/28/20 19:33 Attending Provider: Shaquille Thomson Admit Provider: Stan Lawrence Primary Care Provider: PCP,NO Other Interventions: Discharge Summary Assessment (RN) Last Done: 05/01/20 14:42
== END 2020-05-01 15:50 | disposition home or self-care (01) | DRG 178 ==
LOC: ED 13:00 → 3E 19:33 → SUATTDRO 19:33 → 3E 20:31
DX: Z79.4 Long term (current) use of insulin; I10 Essential (primary) hypertension; Z86.711 Personal history of pulmonary embolism; R79.89 Other specified abnormal findings of blood chemistry; N17.9 Acute kidney failure, unspecified; M06.9 Rheumatoid arthritis, unspecified; E86.0 Dehydration; E11.65 Type 2 diabetes mellitus with hyperglycemia; Z79.899 Other long term (current) drug therapy; U07.1 COVID-19; J44.9 Chronic obstructive pulmonary disease, unspecified; Z88.8 Allergy status to other drugs, medicaments and biological substances; F32.9 Major depressive disorder, single episode, unspecified; Z88.5 Allergy status to narcotic agent; Z87.891 Personal history of nicotine dependence

== ENCOUNTER 2020-07-20 15:45 | Inpatient (IN) ==
--- NOTE | 2020-07-20 16:35 | Emergency Department Note ---
Impression & Plan Acute hyperkalemia, BRIAN (acute kidney injury), Fatigue, Weakness ED Provider Note NAME: JAHAIRA SILVA AGE: 60 SEX: M : 1960 ARRIVES VIA: Walk-In INFORMANT: [Patient] ED PROVIDER(S): [Biju Tripp MD] CHIEF COMPLAINT: Abnormal labs HISTORY OF PRESENT ILLNESS: Patient presents to the ED with a presumed high potassium. The patient has felt somewhat fatigued for this last week but otherwise, he has no complaints. The patient went to his doctor's office today for a scheduled checkup as he has eye surgery scheduled next week. Lab work was done and he was called after the blood work results returned and told report to this ED. His potassium was high. 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 He is making urine. He is not taking any potassium supplements. He does admit that he is eating a lot of oranges lately but otherwise, his diet has not changed. There has been no swelling of the legs, no increased shortness of breath. No fever. No flank discomfort/pain. REVIEW OF SYSTEMS: See HPI for pertinent positives and negatives. A total of ten systems were reviewed and were otherwise negative. PMHx/PSHx: See Below SOCIAL HISTORY: See Below. PHYSICAL EXAM: GENERAL: Patient is in no acute distress. HEENT: No acute trauma, normocephalic atraumatic, mucous membranes moist, no nasal congestion, no scleral icterus. NECK: No stridor, no adenopathy, no meningismus, trachea is midline. LUNGS: Clear to auscultation bilaterally, no wheeze, no rhonchi, breath sounds equal. HEART: Without murmurs gallops or rubs, regular rate and rhythm. ABDOMEN: Soft, nontender, bowel sounds positive, no hernias, no peritonitis. EXTREMITIES: No cyanosis or edema, full range of motion of all the joints without pain or difficulty, no signs for acute trauma. NEUROLOGIC: Oriented x 3, no acute motor or sensory deficits, no focal weakness. SKIN: No rash, no jaundice, no diaphoresis. DIFFERENTIAL DIAGNOSIS: Infection, dehydration, metabolic abnormality, hypo/hyperglycemia, urinary retention, renal failure, electrolyte disturbance, anemia, toxicologic issues, as well as other pathologies. EMERGENCY DEPARTMENT COURSE/PROCEDURES: ECG: Indication was high potassium and fatigue. The ECG shows a sinus rhythm with a first-degree AV block. There are no peaked T waves. The rate is 67. The QTc is 384. There is no ST elevation, no PVCs. Continuous Cardiac Monitoring: An order was placed for continuous cardiac monitoring. The monitor shows a rate of 69 with sinus rhythm with a first- degree AV block. Critical Care Note: I have personally spent 47 minutes of critical care time in the direct management of this patient. This includes bedside care, interpretation of diagnostic studies, and testing, discussion with consultants, patient, and family members, and other required patient management activities. This 47 minutes is in excess of all separately billable procedures. MEDICAL DECISION MAKING: There is no leukocytosis or concerning anemia. There is a normal platelet count. There was some acute kidney injury with a creatinine of 1.73. Potassium was quite high at 6.8. No worrisome liver enzyme elevation. The patient appeared to be in a euthyroid state. ECG shows a sinus rhythm, no acute ischemia. There was a first-degree AV block. Cardiac enzyme testing x1 is not consistent with acute cardiac injury. Covid testing returned negative. The patient was acutely hyperkalemic. This was a critical value. He was aggressively managed. The patient received an albuterol neb. He was given IV calcium, IV glucose and IV insulin, he was given IV saline, 500 cc. The patient is in need of a hospital stay for his hyperkalemia. I did start treatment for this finding here in the ED. The patient has been resting comfortably and doing well. I spoke to the patient about his findings, I spoke with case management. The on-call hospitalist was consulted. Past Med/Surg History Medical History COPD (chronic obstructive pulmonary disease) Depression DM type 2 (diabetes mellitus, type 2) GERD (gastroesophageal reflux disease) History of pulmonary embolism when hospitalized for bacteremia and OM Hypertension MRSA bacteremia Osteoarthritis Rheumatoid arthritis Tobacco abuse Surgical History History of left hip replacement History of right hip replacement History of shoulder surgery Right x 2 Family History Father Diabetes Lung disease emphysema Mother Hypertension Denies family history of Heart disease Social History Smoking Status: Never smoker Tobacco Type: Cigarettes Cigarettes Per Day: 25-30pack history; Second Hand Exposure: No; Do You Dip or Chew Tobacco: Yes; Tobacco Cessation Education Requested by Patient: No (does not want) Hx Alcohol Use: No Hx Substance Use: No Preferred Language: Khmer Communication Ability: Effective Centrifugal Screen Tender Required: No Beliefs That Will Affect Care: None marital status: Current Living Situation: Alone current occupational status: disabled Other Information That Helps Us Care for You: No Feels Safe at Home: Yes Safety Concerns: Feels Safe At This Time Assistive Devices: None Allergies Allergies Allergy/AdvReac Type Severity Reaction Status Date / Time morphine AdvReac Severe Hallucinati Verified 07/20/20 18:01 ng lorazepam AdvReac Unknown Confusion Verified 07/20/20 18:01 Home Meds Home Medications Medication Instructions Recorded Confirmed insulin NPH and regular human 60 units SUBCUT BID 06/24/18 07/20/20 metformin 1,000 mg PO BID 06/24/18 07/20/20 glipizide 5 mg PO BID 04/28/20 07/20/20 lisinopril 20 mg PO QAM 04/28/20 07/20/20 omeprazole 20 mg PO QAM 04/28/20 07/20/20 sertraline 100 mg PO BID 04/28/20 07/20/20 simvastatin 40 mg PO QPM 04/28/20 07/20/20 tamsulosin 0.4 mg PO QAM 04/28/20 07/20/20 insulin lispro [Humalog U-100 1 sliding scale dose SUBCUT 07/20/20 07/20/20 Insulin] USEASDIRECTD PRN Results & Data (ED) Vital Signs Vital Signs - 24 hr 07/20/20 15:49 07/20/20 16:53 07/20/20 16:54 Temperature 36.4 C L Temperature Source Temporal Artery Scan Pulse Rate 78 69 Pulse Rate [Left Apical] 69 Pulse Rhythm Regular Pulse Rhythm [Left Apical] Regular Pulse Strength [Left Apical] Normal Respiratory Rate 18 18 Respiratory Effort / Characteristics Non-Labored Spontaneous Respiratory Depth Normal Respiratory Pattern Regular Blood Pressure 147/69 H Blood Pressure [Right Arm] 129/74 Blood Pressure Mean 95 Blood Pressure Mean [Right Arm] 92 Blood Pressure Position [Right Arm] Lying Pulse Oximetry 98 98 98 Oxygen Delivery Method Room Air Room Air Sepsis Recent Fever Within 48 Hours No Sepsis New/Unexplained Change in Mental Status No Sepsis Action Taken by Nursing No Action Required 07/20/20 17:59 07/20/20 18:00 Temperature Temperature Source Pulse Rate Pulse Rate [Left Apical] 67 70 Pulse Rhythm Pulse Rhythm [Left Apical] Regular Pulse Strength [Left Apical] Normal Respiratory Rate 18 24 Respiratory Effort / Characteristics Non-Labored Spontaneous Non-Labored Spontaneous Respiratory Depth Normal Respiratory Pattern Regular Blood Pressure Blood Pressure [Right Arm] 104/54 L Blood Pressure Mean Blood Pressure Mean [Right Arm] 70 Blood Pressure Position [Right Arm] Lying Pulse Oximetry 97 100 Oxygen Delivery Method Room Air Room Air Sepsis Recent Fever Within 48 Hours Sepsis New/Unexplained Change in Mental Status Sepsis Action Taken by Prison Medications Current Medication List: was personally reviewed by me Laboratory Data Attestation: I reviewed the patient's lab results. Result diagrams: 07/20/20 17:07 07/20/20 20:42 Lab Results 07/20/20 07/20/20 Range/Units 17:07 17:07 WBC 8.14 (4.8-10.8) K/uL RBC 4.56 L (4.7-6.1) M/uL Hgb 13.3 L (14.0-18.0) g/dL Hct 40.3 L (42-52) % MCV 88.4 (80-100) fL MCH 29.2 (25-34) pg MCHC 33.0 (32-36) g/dL RDW Std Deviation 44.8 (36.4-46.3) fL RDW Coeff of Purvi 13.9 (11.5-14.5) % Plt Count 148 (130-400) K/uL MPV 10.8 H (7.4-10.4) fL Immature Gran % (Auto) 0.2 % Neut % (Auto) 70.8 % Lymph % (Auto) 18.2 % [place] % (Auto) 8.6 % Eos % (Auto) 2.0 % Baso % (Auto) 0.2 % Neut # (Auto) 5.76 (1.4-6.5) K/uL Lymph # (Auto) 1.48 (1.2-3.4) K/uL [place] # (Auto) 0.70 H (0.11-0.59) K/uL Eos # (Auto) 0.16 (0-0.5) K/uL Baso # (Auto) 0.02 (0-0.2) K/uL Immature Gran # (Auto) 0.02 (0.00-0.02) K/uL Sodium 136 (136-145) mmol/L Potassium 6.8 H* (3.5-5.1) mmol/L Chloride 112 H (98-107) mmol/L Carbon Dioxide 20 L (21-32) mmol/L Anion Gap 3.0 (3-11) BUN 46 H (7-18) mg/dl Creatinine 1.73 H (0.6-1.4) mg/dl Est Cr Clr Drug Dosing 56.3 ml/min Est GFR ( Amer) 48.3 Est GFR (Non-Af Amer) 41.7 BUN/Creatinine Ratio 26.7 H (10-20) Glucose 79 (70-99) mg/dl Calcium 9.2 (8.5-10.1) mg/dl Magnesium 1.9 (1.8-2.4) mg/dl Total Bilirubin 0.3 (0.2-1) mg/dl AST 32 (15-37) U/L ALT 59 (12-78) U/L Alkaline Phosphatase 87 (45-117) U/L Troponin I < 0.015 (0-0.045) ng/ml Total Protein 7.6 (6.4-8.2) gm/dl Albumin 4.2 (3.4-5.0) gm/dl Globulin 3.4 (2.5-4.0) gm/dl Albumin/Globulin Ratio 1.2 (0.9-2) TSH 0.755 (0.300-4.500) uIu/ml Administered Medications Sodium Chloride (Nss 1000ml) 1,000 mls @ 125 mls/hr IV .Q8H CROW Stop: 07/21/20 02:29 Last Admin: 07/20/20 20:51 Dose: 125 mls/hr Documented by: [id number] Insulin Aspart (Insulin Aspart 100 Units/Ml 3 Ml Pen) 0 units SC ACHS CROW Stop: 08/19/20 21:29 Last Admin: 07/20/20 21:40 Dose: Not Given Documented by: [id number] Sertraline HCl (Sertraline Hcl 100 Mg Tablet) 100 mg PO BID CROW Stop: 08/19/20 20:59 Last Admin: 07/20/20 21:43 Dose: 100 mg Documented by: [id number] Simvastatin (Simvastatin 40 Mg Tab) 40 mg PO QPM CROW Stop: 08/19/20 20:59 Last Admin: 07/20/20 21:44 Dose: 40 mg Documented by: [id number] Discontinued Medications Albuterol (Albuterol 0.083% Nebu Soln 3 Ml Vial) 2.5 mg NEB NOW STA Stop: 07/20/20 17:43 Last Admin: 07/20/20 17:59 Dose: 2.5 mg Documented by: [id number] Dextrose (Dextrose 50% 50 Ml Syringe) 50 ml IV NOW ONE Stop: 07/20/20 17:43 Last Admin: 07/20/20 17:56 Dose: 50 ml Documented by: [id number] Sodium Chloride (Nss 1000ml) 500 mls @ 999 mls/hr IV .Q31M ONE Stop: 07/20/20 18:12 Last Admin: 07/20/20 17:59 Dose: 999 mls/hr Documented by: [id number] Calcium Gluconate () 1,000 mg in 60 mls @ 240 mls/hr IV NOW STA Stop: 07/20/20 17:56 Last Infusion: 07/20/20 18:15 Dose: 0 mls/hr Documented by: [id number] Admin: 07/20/20 17:57 Dose: 240 mls/hr Documented by: [id number] Insulin Human Regular (Novolin-R Insulin Per Unit Charge) 10 units IV NOW STA Stop: 07/20/20 17:43 Last Admin: 07/20/20 18:00 Dose: 10 units Documented by: [id number] Cosigned by: [id number] Sodium Polystyrene Sulfonate (Sodium Polystyrene Sulfonate 15g/60ml Susp) 15 gm PO NOW STA Stop: 07/20/20 21:20 Last Admin: 07/20/20 21:41 Dose: 15 gm Documented by: [id number] Discharge Plan Visit Data Chief Complaint: Illness Stated Complaint: HIGH POTASSIUM ED Provider: Biju Tripp Discharge Problem: Acute hyperkalemia, BRIAN (acute kidney injury), Fatigue, Weakness Patient Disposition: Admitted As Inpatient Condition: Serious Discharge Instructions Interventions: ED Discharge Assessment Last Done: 07/20/20 20:25 Discharge Problem: Fatigue Qualifiers: Fatigue type: unspecified Qualified Code(s): R53.83 - Other fatigue
[2020-07-20 17:17] LABS: Basophils # (auto) 0.02 K/uL (0-0.2); Basophils % (auto) 0.2 %; Eosinophils # (auto) 0.16 K/uL (0-0.5); Hematocrit (blood only) 40.3 % (42-52); Hemoglobin 13.3 g/dL (14.0-18.0); Immature Granulocytes # (auto) 0.02 K/uL (0.00-0.02); Immature Granulocytes % (auto) 0.2 %; Lymphocytes # (auto) 1.48 K/uL (1.2-3.4); Lymphocytes % (auto) 18.2 %; Mean Corpuscular Hemoglobin 29.2 pg (25-34); Mean Corpuscular Volume 88.4 fL (80-100); Mean Platelet Volume 10.8 fL (7.4-10.4); Monocytes % (auto) 8.6 %; Neutrophils # (auto) 5.76 K/uL (1.4-6.5); Neutrophils % (auto) 70.8 %; Platelet Count 148 K/uL (130-400); RDW Coefficient of Variation 13.9 % (11.5-14.5); RDW Standard Deviation 44.8 fL (36.4-46.3); Red Blood Count 4.56 M/uL (4.7-6.1); White Blood Count 8.14 K/uL (4.8-10.8)
[2020-07-20 17:36] LABS: Alanine Aminotransferase 59 U/L (12-78); Albumin Level 4.2 gm/dl (3.4-5.0); Aspartate Aminotransferase 32 U/L (15-37); BUN Creatinine Ratio 26.7 (10-20); Blood Urea Nitrogen 46 mg/dl (7-18); Calcium 9.2 mg/dl (8.5-10.1); Carbon Dioxide 20 mmol/L (21-32); Chloride 112 mmol/L (98-107); Creatinine Clr Calc Pharmacy 56.3 ml/min; Est GFR (African American) 48.3; Est GFR (Non-African American) 41.7; Glucose 79 mg/dl (70-99); Magnesium 1.9 mg/dl (1.8-2.4); Potassium 6.8 mmol/L (3.5-5.1); Sodium 136 mmol/L (136-145)
[2020-07-20] MEDS ORDERED: NovoLIN-R INSULIN PER UNIT CHARGE IV STA (17:42)
[2020-07-20] MEDS ORDERED: DEXTROSE 50% 50 ML SYRINGE IV ONE (17:42)
[2020-07-20] MEDS ORDERED: ALBUTEROL 0.083% NEBU SOLN 3 ML VIAL NEB STA (17:42)
[2020-07-20] MEDS ORDERED: SODIUM CHLORIDE 0.9% 1000ML 500 ML IV ONE (17:42)
[2020-07-20] MEDS ORDERED: CALCIUM GLUCONATE 1,000 MG/60 ML BAG IV STA (17:42)
[2020-07-20 17:48] LABS: Albumin Globulin Ratio 1.2 (0.9-2); Alkaline Phosphatase 87 U/L (45-117); Bilirubin,Total 0.3 mg/dl (0.2-1); Globulin 3.4 gm/dl (2.5-4.0); Thyroid Stimulating Hormone 0.755 uIu/ml (0.300-4.500); Total Protein 7.6 gm/dl (6.4-8.2); Troponin I < 0.015 ng/ml (0-0.045)
[2020-07-20] MEDS ORDERED: ACETAMINOPHEN 325 MG TAB PO PRN (18:16)
[2020-07-20] MEDS ORDERED: ONDANSETRON INJ 2 MG/ML 2 ML VIAL IV PRN (18:16)
[2020-07-20] MEDS ORDERED: POLYETHYLENE (MIRALAX) 17 GM PACK PO PRN (18:16)
--- NOTE | 2020-07-20 18:16 | History & Physical Report ---
Date of Service July 20, 2020 Assessment & Plan (1) Acute renal failure superimposed on chronic kidney disease: presented with acute renal failure possible due to chronic diarrhea ? pt reports of normal PO intake , no nausea /vomiting cont IV fluid , hold ACEI follow BMP nephrology consulted (2) Acute hyperkalemia: possible due to acute renal failure on ACEI and also reports of eating lots of K containing fruits pt is placed on low K diet hold ACEI ordered for Kayexalate ( already received IV insulin , Iv Ca gluconate in ER ) repeat BMP shows mild improvement of K to 5 follow BMP 4hr monitor in tele for arrhythmia Fatigue /weakness : possible due to acute renal failure /electrolyte imbalance TSH wnl cont IV fluid and correction of electrolyte as above recent hx of COVID 19 infection on Apr 2020 no evidence of any infection COVID 19 test negative Type 2 DM on Insulin : cont basal insulin NPH home dose insulin SSI check HbA1 c in am Full code DVT prophylaxis : sc heparin Disposition : will be discharged home when medically stable plan of care d/w pt is detail , all questions answered History of Present Illness Chief Complaint: feeling weak and fatigued this a 60 yo M with past medical hx of type 2 DM on insulin , HTN ,CKD stage 3 sent to ED by his family physician for abnormal lab work ; acute renal failure /hyperkalemia pt reports he has been eating a lot of oranges lately ( 6-8 of them ) daily has ongoing chronic diarrhea for months for the past 4-5 days -hugh more weak and tired , " wiped out " no fever or chills , no cough or SOB no muscle pain or ache , was seen at PCP clinic noted to have lab abnormality with elevated cr and high potassium level pt takes Lisinopril for hypertension denies of taking extra potassium supplement taking Licorice or any Herbal meds or supplements In ER K > 6 . Cr 1.7 no EKG changed pt was given IV insulin, Ca gluconate and IV fluid in ER on the floor pt reports feeling bit better after receiving IV fluids no nausea , no headache or visual symptoms Allergies Allergy/AdvReac Type Severity Reaction Status Date / Time morphine AdvReac Severe Hallucinati Verified 07/20/20 18:01 ng lorazepam AdvReac Unknown Confusion Verified 07/20/20 18:01 Home Medications Medication Instructions Recorded Confirmed Type insulin NPH and regular human 60 units SUBCUT BID 06/24/18 07/20/20 History metformin 1,000 mg PO BID 06/24/18 07/20/20 History glipizide 5 mg PO BID 04/28/20 07/20/20 History lisinopril 20 mg PO QAM 04/28/20 07/20/20 History omeprazole 20 mg PO QAM 04/28/20 07/20/20 History sertraline 100 mg PO BID 04/28/20 07/20/20 History simvastatin 40 mg PO QPM 04/28/20 07/20/20 History tamsulosin 0.4 mg PO QAM 04/28/20 07/20/20 History insulin lispro [Humalog U-100 1 sliding scale dose SUBCUT 07/20/20 07/20/20 History Insulin] USEASDIRECTD PRN Past Med/Surg History Medical History COPD (chronic obstructive pulmonary disease) Depression DM type 2 (diabetes mellitus, type 2) GERD (gastroesophageal reflux disease) History of pulmonary embolism when hospitalized for bacteremia and OM Hypertension MRSA bacteremia Osteoarthritis Rheumatoid arthritis Tobacco abuse Surgical History History of left hip replacement History of right hip replacement History of shoulder surgery Right x 2 Family History Father Diabetes Lung disease emphysema Mother Hypertension Denies family history of Heart disease Social History Smoking Status: Never smoker Tobacco Type: Cigarettes Cigarettes Per Day: 25-30pack history; Second Hand Exposure: No; Do You Dip or Chew Tobacco: Yes; Tobacco Cessation Education Requested by Patient: No (does not want) Hx Alcohol Use: No Hx Substance Use: No Preferred Language: Austrian Communication Ability: Effective Vice President Investor Relations Required: No Beliefs That Will Affect Care: None marital status: Current Living Situation: Alone current occupational status: disabled Other Information That Helps Us Care for You: No Feels Safe at Home: Yes Safety Concerns: Feels Safe At This Time Assistive Devices: None Review of Systems Review of Systems: All systems reviewed & are unremarkable except as noted in Subjective Physical Exam Constitutional: WD/WN, vitals as above Eyes: PERRL, conjunctivae normal, anicteric sclerae ENMT: external ear and nose normal, oropharynx normal Neck: trachea midline, no thyromegaly Respiratory: normal respiratory effort, lungs clear to auscultation Cardiovascular: RRR, no murmur, no edema Gastrointestinal (Abdomen): normal bowel sounds, soft, nontender, no hepatosplenomegaly Musculoskeletal: no cyanosis or clubbing, extremities motor strength 5/5 Skin: no rashes, warm and dry Neurologic: PERRL, EOMI, accommodation nl, no face palsy, no dysarthria Psychiatric: A+Ox3, euthymic affect Results & Data Results & Data ([facility]) Vital Signs (Past 12 Hours) Vital Signs Temp Pulse Pulse Resp BP BP Pulse Ox 07/20/20 18:00 70 24 104/54 L 100 07/20/20 17:59 67 18 97 07/20/20 16:54 69 18 129/74 98 07/20/20 16:53 69 98 07/20/20 15:49 36.4 C L 78 18 147/69 H 98
[2020-07-20] MEDS ORDERED: SODIUM CHLORIDE 0.9% 1000ML 1,000 ML IV SCH (18:30)
[2020-07-20] MEDS ORDERED: CARBOHYDRATES FOR HYPOGLYCEMIA PO PRN (20:34)
[2020-07-20] MEDS ORDERED: GLUCOSE 10 TABS/TUBE PO PRN (20:34)
[2020-07-20] MEDS ORDERED: GLUCOSE 40% GEL 15 GM TUBE PO PRN (20:34)
[2020-07-20] MEDS ORDERED: DEXTROSE 50% 50 ML SYRINGE IV PRN (20:34)
[2020-07-20] MEDS ORDERED: GLUCAGON FOR INJ 1 MG VIAL SQ PRN (20:34)
[2020-07-20] MEDS ORDERED: SODIUM POLYSTYRENE SULFONATE 15G/60ML SUSP PO STA (21:19)
[2020-07-20 21:32] LABS: BUN Creatinine Ratio 26.1 (10-20); Calcium 9.3 mg/dl (8.5-10.1); Creatinine Clr Calc Pharmacy 59.1 ml/min; Est GFR (African American) 51.5; Est GFR (Non-African American) 44.5; Potassium 5.6 mmol/L (3.5-5.1)
[2020-07-20] MEDS: INSULIN ASPART 100 UNITS/ML 3 ML PEN SC SCH (21:40)
[2020-07-20] MEDS: SERTRALINE HCL 100 MG TABLET PO SCH (21:43)
[2020-07-20] MEDS: SIMVASTATIN 40 MG TAB PO SCH (21:44)
[2020-07-20 22:49] LABS: Appearance Urine Clear (Clear); Bilirubin Urine Negative (Negative); Blood Urine Negative (Negative); Color Urine Yellow; Glucose Urine UA Negative (Negative); Ketones Urine Negative (Negative); Leukocyte Esterase Urine Negative (Negative); Nitrite Urine Negative (Negative); Protein Urine Negative (Negative); Specific Gravity Urine 1.015 (1.000-1.030); Urobilinogen Urine Negative (Negative)
[2020-07-21 01:35] LABS: BUN Creatinine Ratio 25.4 (10-20); Calcium 8.7 mg/dl (8.5-10.1); Creatinine Clr Calc Pharmacy 60.6 ml/min; Est GFR (African American) 53.1; Est GFR (Non-African American) 45.8; Potassium 5.8 mmol/L (3.5-5.1)
[2020-07-21] MEDS ORDERED: INSULIN HUMAN REGULAR PER UNIT 5 UNITS in SYRINGE 4.95 ML IV ONE (02:15)
[2020-07-21] MEDS ORDERED: DEXTROSE 50% 50 ML SYRINGE IV ONE (02:15)
[2020-07-21] MEDS ORDERED: SODIUM POLYSTYRENE SULFONATE 15G/60ML SUSP PO ONE (02:15)
[2020-07-21 05:50] LABS: Calcium 8.7 mg/dl (8.5-10.1); Creatinine Clr Calc Pharmacy 70.3 ml/min; Est GFR (African American) 63.5; Est GFR (Non-African American) 54.8; Potassium 5.5 mmol/L (3.5-5.1)
[2020-07-21 06:01] LABS: Thyroid Stimulating Hormone 0.935 uIu/ml (0.300-4.500)
[2020-07-21] MEDS ORDERED: INSULIN HUMAN 70% NPH/30% REGULAR SC SCH (08:00)
[2020-07-21] MEDS: TAMSULOSIN HCL 0.4 MG CAP PO SCH (08:06)
[2020-07-21] MEDS: PANTOprazole 40 MG TAB PO SCH (08:06)
[2020-07-21] MEDS: SERTRALINE HCL 100 MG TABLET PO SCH ×2 (08:06→20:20)
--- NOTE | 2020-07-21 08:06 | CT Scan Report ---
CT SCAN OF THE ABDOMEN AND PELVIS WITHOUT IV CONTRAST CLINICAL HISTORY: Acute renal failure. Hyperkalemia. COMPARISON STUDY: Abdominal CT dated 05/23/2013. TECHNIQUE: CT scan of the abdomen and pelvis is performed from the lung bases to the proximal femora. Images are reviewed in the axial, sagittal, and coronal planes. IV contrast was not administered for this examination. A dose lowering technique was utilized adhering to the principles of ALARA. CT DOSE: 1747.70 mGy.cm FINDINGS: Lung bases: The heart is normal in size and without pericardial effusion. The lung bases are clear no ting dependent atelectasis. Liver: The unenhanced liver is normal in size, contour, and attenuation. There is no intrahepatic wilma iary ductal dilatation. Gallbladder: Unremarkable. Spleen: Normal in size and attenuation. Pancreas: The unenhanced pancreas is mildly atrophic and grossly unremarkable. Adrenal glands: Unremarkable. Kidneys: The unenhanced kidneys demonstrate cortical atrophy and are without hydronephrosis. There ar e no renal calculi identified. There is no evidence of contour deforming renal mass lesion. Abdominal vasculature: The abdominal aorta is normal in course and caliber noting moderate atheroscle rotic calcification. Bowel: There are scattered colonic diverticula without CT evidence of acute diverticulitis. No bowel obstruction is seen. The appendix is well-visualized and normal. Peritoneum: There is no intraperitoneal free air or abdominal ascites. There is a small fat-containin g umbilical hernia. There is asymmetric atrophy of the right iliopsoas musculature as compared to lef t. Lymphadenopathy: None. Pelvic viscera: Evaluation of the pelvis is degraded by streak artifact from bilateral hip arthroplas ties. The prostate gland is enlarged and heterogeneous. The bladder wall appears thickened and trabec ulated indicating chronic outlet obstruction. Skeletal structures: The skeletal structures are osteopenic. There is moderate lumbosacral spondylosi s. No lytic or blastic lesions are seen. Bilateral hip arthroplasties are in place. IMPRESSION: 1. There are no acute infectious or inflammatory findings in the abdomen or pelvis. 2. The kidneys demonstrate cortical atrophy and are without hydronephrosis. 3. Additional findings as above. ACT 112: Negative or not required by law. Electronically signed by: Biju Lucero M.D. 07/21/2020 8:05 AM
[2020-07-21] MEDS: INSULIN ASPART 100 UNITS/ML 3 ML PEN SC SCH ×4 (08:08→20:21)
[2020-07-21 12:23] LABS: BUN Creatinine Ratio 23.5 (10-20); Calcium 8.7 mg/dl (8.5-10.1); Creatinine Clr Calc Pharmacy 73.4 ml/min; Est GFR (African American) 67.6; Est GFR (Non-African American) 58.3; Potassium 5.4 mmol/L (3.5-5.1)
--- NOTE | 2020-07-21 13:34 | Nephrology Consultation ---
Date of Consultation July 21, 2020 Assessment & Plan (1) Acute renal failure superimposed on chronic kidney disease: presenting creatinine 1.7; down to 1.4 today; baseline unclear but suspect about 1.1 (though this would not be CKD 3) though improving -cont to hold acei -daily bmp while in house -K as below Present on Admission?: Yes (2) Acute hyperkalemia: resolved w/ medical management for most part but still on high side suspect from combination of ibuprofen, lisinopril >>strongly advised no further nsaids; not sure how well he will follow this but does seem to understand >cont low K diet (but no real role for citrus here in causeing high k0 -resumed IVF > D5W w/ 75 mEq/L Na bic at 125 ml/hr to help lower K -recheck K in am Present on Admission?: Yes (3) Rheumatoid arthritis: not currently getting care which will only worsen his pain >> recommended he consider est w/ [facility] in [place] at d/c Present on Admission?: Yes History of Present Illness Reason for Consultation: hyperkalemia, brian on ckd Requesting Physician: dr Foster Attending Physician: Memo High MD History of Present Illness 60 y/o M whom I'm asked to see for BRIAN on CKD and hyperkalemia after his pcp sent him to ER for abnormal labs. His presenting creatinine was 1.7, presenting K 6.8. 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 His bseline creatinine in April was 1.1. He tells me he has been taking 5 ibuprofen at a time a few times daily for a few weeks b/c of pain in his hands, low back, knees, and feet. States he does not like pain clinic care and does not find tylenol useful. In the ER he had kayexalate, IV insulin. K this am was 5.5 w/ creatinine 1.4. no sob, no n/v, no rash, F/c, no voiding concerns. no falls or trauma. he takes metformin and lisinopril as OP. Allergies Allergy/AdvReac Type Severity Reaction Status Date / Time morphine AdvReac Severe Hallucinati Verified 07/20/20 18:01 ng lorazepam AdvReac Unknown Confusion Verified 07/20/20 18:01 Home Medications Medication Instructions Recorded Confirmed Type insulin NPH and regular human 60 units SUBCUT BID 06/24/18 07/20/20 History metformin 1,000 mg PO BID 06/24/18 07/20/20 History glipizide 5 mg PO BID 04/28/20 07/20/20 History lisinopril 20 mg PO QAM 04/28/20 07/20/20 History omeprazole 20 mg PO QAM 04/28/20 07/20/20 History sertraline 100 mg PO BID 04/28/20 07/20/20 History simvastatin 40 mg PO QPM 04/28/20 07/20/20 History tamsulosin 0.4 mg PO QAM 04/28/20 07/20/20 History insulin lispro [Humalog U-100 1 sliding scale dose SUBCUT 07/20/20 07/20/20 History Insulin] USEASDIRECTD PRN Patient History Medical History COPD (chronic obstructive pulmonary disease) Depression DM type 2 (diabetes mellitus, type 2) GERD (gastroesophageal reflux disease) History of pulmonary embolism when hospitalized for bacteremia and OM Hypertension MRSA bacteremia Osteoarthritis Rheumatoid arthritis Tobacco abuse Surgical History History of left hip replacement History of right hip replacement History of shoulder surgery Right x 2 Family History Father Diabetes Lung disease emphysema Mother Hypertension Denies family history of Heart disease Social History Smoking Status: Never smoker Tobacco Type: Cigarettes Cigarettes Per Day: 25-30pack history; Second Hand Exposure: No; Do You Dip or Chew Tobacco: Yes; Tobacco Cessation Education Requested by Patient: No (does not want) Hx Alcohol Use: No Hx Substance Use: No Preferred Language: Slovenian Communication Ability: Effective Photographic Specialist Required: No Beliefs That Will Affect Care: None marital status: Current Living Situation: Alone current occupational status: disabled Other Information That Helps Us Care for You: No Feels Safe at Home: Yes Safety Concerns: Feels Safe At This Time Assistive Devices: None Review of Systems Review of Systems: All systems reviewed & are unremarkable except as noted in HPI & below Physical Exam Constitutional: well developed, well nourished and + obese; no acute distress Eyes: EOM intact bilaterally ENMT: Ears: no external ear abnormality Nose: no external nose abnormality Mouth: oral mucous membranes not dry Neck: no nuchal rigidity Respiratory: normal respiratory effort Auscultation: lungs clear to auscultation bilaterally and + diminished lung sounds Cardiovascular: RRR, no murmur, no edema Gastrointestinal (Abdomen): Inspection/Auscultation: normal bowel sounds; abdomen not distended Percussion/Palpation: abdomen soft; abdomen nontender Musculoskeletal: Extremities: strength 5/5 throughout maneuvers easily for exam Skin: no rashes, warm and dry Neurologic: balderrama, fluent speech, no tremor Psychiatric: Orientation: alert and oriented x 3 Speech: normal rate/rhythm/volume of speech Results & Data ([facility]) Vital Signs (Past 12 Hours) Vital Signs Temp Pulse Pulse Resp BP Pulse Ox 07/21/20 11:21 36.7 C 78 20 130/79 98 07/21/20 08:20 70 07/21/20 07:02 36.7 C 68 18 157/79 H 98 07/21/20 03:27 36.7 C 66 19 145/83 H 99 Laboratory Results 07/20/20 17:07 07/21/20 11:42 (1) Rheumatoid arthritis Laterality: unspecified laterality Rheumatoid factor presence: unspecified presence (2) Acute renal failure superimposed on chronic kidney disease Acute renal failure type: unspecified Chronic kidney disease stage: stage 3 (moderate) Chronic kidney disease stage 3 subtype: unspecified whether 3a or 3b Qualified Code(s): N17.9 - Acute kidney failure, unspecified; N18.30 - Chronic kidney disease, stage 3 unspecified
[2020-07-21] MEDS ORDERED: PHARMACY GLYCEMIC MGMT CONSULT PRN (13:49)
[2020-07-21] MEDS ORDERED: SODIUM BICARBONATE 8.4% 75 MEQ in DEXTROSE 5% 1,000 ML IV SCH (14:00)
--- NOTE | 2020-07-21 14:10 | Pharmacy Report ---
Pharmacy Glycemic Short Note 2 - Date of Service July 21, 2020 - Glycemic Short BSG Results (Last 24 hours): 07/20/20 07/20/20 07/20/20 17:07 20:42 20:46 Glucose 79 65 L POC Glucose 69 L* 07/20/20 07/20/20 07/21/20 20:48 22:08 00:27 Glucose 137 H POC Glucose 73 184 H 07/21/20 07/21/20 07/21/20 05:10 07:35 11:42 Glucose 70 65 L POC Glucose 189 H 07/21/20 07/21/20 11:49 12:12 Glucose POC Glucose 67 L* 84 OUTPATIENT ANTIDIABETIC REGIMEN: * Novolin 70/30 -- 60 units BIDM ASSESSMENT: * Mr Cabrera is a T2DM on insulin who presented with ARF and hyperkalemia. * Patient's blood sugar was initially low but did have some spikes after receiving two insulin/dextrose treatments for hyperkalemia. * This morning, patient received home dose of 70/30 --> 60 units + 4 units of Novolog for carbohydrate coverage. Had hypoglycemic event at lunch most likely due to double coverage. * Previously, patient had required around 30 units of Lantus with Novolog CF 15 and CR of 5. * Since patient already started on 70/30 while here, will transition to NPH. Scheduled 10-15 units for dinner (lower dose since patient did receive 42 units of NPH with breakfast) then 15 units BIDM starting 07/22/20. * Continue above Novolog. PLAN FOR INPATIENT GLYCEMIC CONTROL: * Basal insulin * NPH 10-15 units SQ x 1 with dinner (10 units if BSG < 140 mg/dL and 15 units if BSG 140 mg/dL or greater) then 15 units BIDM * Bolus insulin * NovoLog per scale ACHS or Q6hrs while NPO * Goal Range: Low 110 mg/dL - High 140 mg/dL * Correction Factor: 15 mg/dL/unit * Nutritional / Prandial insulin per carb ratio of 1 unit per 5 grams CHO consumed PLAN FOR DISCHARGE: * TBD HbA1C is pending
--- NOTE | 2020-07-21 14:51 | Hospitalist Progress Note ---
Date of Service July 21, 2020 Assessment & Plan (1) Acute renal failure superimposed on chronic kidney disease: BRIAN on CKD Unknown baseline Cr Patient admits to taking ibuprofen for chronic RA Also has chronic diarrhea Hold lisinopril Avoid nephrotoxic agents as able Advised to discontinue ibuprofen Continue IV fluids Appreciate nephrology input (2) Acute hyperkalemia: Secondary to above Received Kayexalate, IV calcium gluconate, IV insulin on presentation Hold ACEI Low potassium diet Monitor potassium levels Fatigue /weakness : Possible due to acute renal failure /electrolyte imbalance Recent hx of COVID 19 infection on Apr 2020 COVID 19 test negative DM II: HbA1c pending Continue insulin therapy Monitor BGs Code Status Full code DVT Px: Heparin SQ Admission and Anticipated Discharge Date Admission Date: July 20, 2020 Subjective Patient is seen and examined at bedside States feeling better Hypokalemia improving Reports chronic pain from RA Denies chest pain, dyspnea, dizziness, nausea, abdominal pain Offers no other complaints Review of Systems Review of Systems: All systems reviewed & are unremarkable except as noted in HPI & below Physical Exam Physical Exam: Physical Exam: Vitals signs as noted above General Appearance:Obese, no apparent distress Head: normocephalic, Atraumatic Eyes: normal inspection, EOMI Neck: supple, Trachea midline Respiratory/Chest: Normal breath sounds, CTA Cardiovascular: S1, S2, No murmur Abdomen/GI:Soft, Non tender, Bowel sounds present Extremities/Musculoskelatal:normal inspection, no edema Neurologic/Psych:AAOX3, grossly no focal neurological deficits Skin: normal color, warm Results & Data Results & Data ([facility]) Vital Signs (Past 12 Hours) Vital Signs Temp Pulse Pulse Resp BP Pulse Ox 07/21/20 11:21 36.7 C 78 20 130/79 98 07/21/20 08:20 70 07/21/20 07:02 36.7 C 68 18 157/79 H 98 07/21/20 03:27 36.7 C 66 19 145/83 H 99 Laboratory Results Short CBC 07/20/20 Range/Units 17:07 WBC 8.14 (4.8-10.8) K/uL Hgb 13.3 L (14.0-18.0) g/dL Hct 40.3 L (42-52) % Plt Count 148 (130-400) K/uL BMP 07/20/20 07/20/20 07/21/20 17:07 20:42 00:27 Sodium 136 137 137 Potassium 6.8 H* 5.6 H D 5.8 H Chloride 112 H 112 H 113 H Carbon Dioxide 20 L 20 L 20 L BUN 46 H 43 H 41 H Creatinine 1.73 H 1.64 H 1.60 H Glucose 79 65 L 137 H Calcium 9.2 9.3 8.7 07/21/20 07/21/20 05:10 11:42 Sodium 141 140 Potassium 5.5 H 5.4 H Chloride 116 H 114 H Carbon Dioxide 20 L 22 BUN 36 H 31 H Creatinine 1.38 1.31 Glucose 70 65 L Calcium 8.7 8.7 Cardiac Enzymes 07/20/20 Range/Units 17:07 Troponin I < 0.015 (0-0.045) ng/ml Liver Function 07/20/20 Range/Units 17:07 Total Bilirubin 0.3 (0.2-1) mg/dl AST 32 (15-37) U/L ALT 59 (12-78) U/L Alkaline Phosphatase 87 (45-117) U/L Albumin 4.2 (3.4-5.0) gm/dl Urine 07/20/20 Range/Units 20:45 Urine Color Yellow Urine Appearance Clear (Clear) Urine pH 5.0 (4.5-7.5) Ur Specific [place] 1.015 (1.000-1.030) Urine Protein Negative (Negative) Urine Glucose (UA) Negative (Negative) (1) Acute renal failure superimposed on chronic kidney disease Acute renal failure type: unspecified Chronic kidney disease stage: stage 3 (moderate) Chronic kidney disease stage 3 subtype: unspecified whether 3a or 3b Qualified Code(s): N17.9 - Acute kidney failure, unspecified; N18.30 - Chronic kidney disease, stage 3 unspecified
--- NOTE | 2020-07-21 16:01 | Electrocardiogram Report ---
Test Reason : Blood Pressure : / mmHG Vent. Rate : 067 BPM Atrial Rate : 067 BPM P-R Int : 236 ms QRS Dur : 092 ms QT Int : 364 ms P-R-T Axes : 043 -02 047 degrees QTc Int : 384 ms Sinus rhythm with 1st degree A-V block Otherwise normal ECG When compared with ECG of 28-APR-2020 15:10, No significant change was found Confirmed by Eduardo Bell ([id number]) on 07/21/2020 4:01:23 PM Referred By: REFERRED SELF Confirmed By:Eduardo Bell
--- NOTE | 2020-07-21 16:11 | Electrocardiogram Report ---
Test Reason : Blood Pressure : / mmHG Vent. Rate : 073 BPM Atrial Rate : 073 BPM P-R Int : 246 ms QRS Dur : 086 ms QT Int : 360 ms P-R-T Axes : 069 -06 052 degrees QTc Int : 396 ms Sinus rhythm with 1st degree A-V block Low voltage QRS Borderline ECG When compared with ECG of 20-JUL-2020 16:59, (unconfirmed) No significant change was found Confirmed by Eduardo Bell ([id number]) on 07/21/2020 4:11:04 PM Referred By: REFERRED SELF Confirmed By:Eduardo Bell
[2020-07-21] MEDS ORDERED: INSULIN HUMAN NPH SC SCH ×2 (17:00)
[2020-07-21] MEDS: SIMVASTATIN 40 MG TAB PO SCH (20:20)
[2020-07-21] MEDS: HEPARIN SOD 5,000 UNIT/0.5 ML VIAL SQ SCH (20:24)
[2020-07-22] MEDS: HEPARIN SOD 5,000 UNIT/0.5 ML VIAL SQ SCH (06:23)
[2020-07-22 07:11] LABS: BUN Creatinine Ratio 18.2 (10-20); Calcium 9.2 mg/dl (8.5-10.1); Creatinine Clr Calc Pharmacy 83.5 ml/min; Magnesium 1.6 mg/dl (1.8-2.4); Potassium 4.5 mmol/L (3.5-5.1)
[2020-07-22] MEDS ORDERED: INSULIN HUMAN NPH SC SCH (08:00)
[2020-07-22] MEDS ORDERED: MAGNESIUM SULFATE / D5W 1 GM/100 ML BAG IV ONE (08:08)
[2020-07-22] MEDS: SERTRALINE HCL 100 MG TABLET PO SCH (08:18)
[2020-07-22] MEDS: PANTOprazole 40 MG TAB PO SCH (08:18)
[2020-07-22] MEDS: INSULIN ASPART 100 UNITS/ML 3 ML PEN SC SCH ×2 (08:18→12:10)
[2020-07-22] MEDS: TAMSULOSIN HCL 0.4 MG CAP PO SCH (08:18)
[2020-07-22 08:20] LABS: Estimated Average Glucose 151 mg/dl; Hemoglobin A1C 6.9 % (4.5-5.6)
--- NOTE | 2020-07-22 10:18 | Nephrology Progress Note ---
Date of Service July 22, 2020 Assessment & Plan (1) Acute renal failure superimposed on chronic kidney disease: resolved; prerenal/ischemic atn. presenting creatinine 1.7; down to 1.1 today; baseline unclear but suspect about 1.1 (though this would not be CKD 3) -cont to hold acei -daily bmp while in house -K as below FROM A RENAL STANDPOINT he could be d/c -d/c w/o ACEI - pt to resume this carefully after d/c under supervision -NO NSAIDS; needs alternate pain mgt plan -recommend CKD clinic f/u in 2-4 wks in [place] any provider; [facility] if no [place] availability; he did agree to this with me -bmp, mag at pcp f/u a week after d/c -Recommend establish with [facility] rheumatology in [place] after discharge for management of rheumatoid arthritis (2) Acute hyperkalemia: resolved w/ medical management suspect from combination of ibuprofen, lisinopril >>strongly advised no further nsaids; not sure how well he will follow this but does seem to understand >stopped low K diet -for now cont IVF unless for d/c > D5W w/ 75 mEq/L Na bic at 125 ml/hr to help lower K -recheck K in am (3) Rheumatoid arthritis: not currently getting care which will only worsen his pain >> recommended he consider est w/ [facility] in [place] at d/c (4) Hypomagnesemia: getting IV mag today; added po slo mag daily -check mag tomorrow Present on Admission?: No Admission and Anticipated Discharge Date Admission Date: July 20, 2020 Subjective No concerns today. He has had loose bowel movements for few weeks now no clear reason why. No shortness of breath, no edema, no nausea vomiting, no new or worrisome voiding concerns Review of Systems Review of Systems: All systems reviewed & are unremarkable except as noted in Subjective Physical Exam Constitutional: well developed, well nourished and + obese; no acute distress Eyes: EOM intact bilaterally ENMT: Ears: no external ear abnormality Nose: no external nose abnormality Mouth: oral mucous membranes not dry Neck: no nuchal rigidity Respiratory: normal respiratory effort Auscultation: lungs clear to auscultation bilaterally and + diminished lung sounds Cardiovascular: RRR, no murmur, no edema Gastrointestinal (Abdomen): Inspection/Auscultation: normal bowel sounds; abdomen not distended Percussion/Palpation: abdomen soft; abdomen nontender Musculoskeletal: Extremities: strength 5/5 throughout Skin: no rashes, warm and dry Neurologic: Maneuvers easily for exam, no tremor, fluent speech Psychiatric: Orientation: alert and oriented x 3 Speech: normal rate/rhythm/volume of speech Affect: + flat affect Results & Data ([facility]) Vital Signs (Past 12 Hours) Vital Signs Temp Pulse Pulse Resp BP BP Pulse Ox 07/22/20 07:11 36.7 C 67 19 145/80 H 95 07/22/20 03:25 36.6 C 70 18 137/83 97 07/21/20 23:34 36.8 C 78 18 154/81 H 95 Laboratory Results 07/20/20 17:07 07/22/20 06:17 mag 1.6 (1) Rheumatoid arthritis Laterality: unspecified laterality Rheumatoid factor presence: unspecified presence (2) Acute renal failure superimposed on chronic kidney disease Acute renal failure type: unspecified Chronic kidney disease stage: stage 3 (moderate) Chronic kidney disease stage 3 subtype: unspecified whether 3a or 3b Qualified Code(s): N17.9 - Acute kidney failure, unspecified; N18.30 - Chronic kidney disease, stage 3 unspecified
[2020-07-22] MEDS ORDERED: MAGNESIUM CHLORIDE 64MG DELAYED REL TAB PO SCH (10:30)
--- NOTE | 2020-07-22 10:40 | Hospitalist Progress Note ---
Date of Service July 22, 2020 Assessment & Plan (1) Acute renal failure superimposed on chronic kidney disease: BRIAN on CKD Unknown baseline Cr Patient admits to taking ibuprofen for chronic RA Also has chronic diarrhea lisinopril discontinued for now Avoid nephrotoxic agents as able Advised to discontinue ibuprofen use Received IV fluids Appreciate nephrology input Needs follow-up with nephrology with repeat labs as outpatient Hypertension Lisinopril discontinued secondary to BRIAN, hyperkalemia Blood pressure variable Start on amlodipine 5 mg daily (2) Acute hyperkalemia: Secondary to above Received Kayexalate, IV calcium gluconate, IV insulin on presentation Hold ACEI, BRIAN Low potassium diet Potassium levels normalized Hypomagnesemia Continue magnesium supplements Fatigue /weakness : Possible due to acute renal failure /electrolyte imbalance Recent hx of COVID 19 infection on Apr 2020 COVID 19 test negative DM II: HbA1c 6.9 Continue insulin therapy Monitor BGs Code Status Full code DVT Px: Heparin SQ Admission and Anticipated Discharge Date Admission Date: July 20, 2020 Subjective Patient is seen and examined at bedside No new complaints Potassium levels normalized Renal function continues to improve Reports chronic pain from RA Denies chest pain, dyspnea, dizziness, nausea, abdominal pain Review of Systems Review of Systems: All systems reviewed & are unremarkable except as noted in HPI & below Physical Exam Physical Exam: Physical Exam: Vitals signs as noted above General Appearance:Obese, no apparent distress Head: normocephalic, Atraumatic Eyes: normal inspection, EOMI Neck: supple, Trachea midline Respiratory/Chest: Normal breath sounds, CTA Cardiovascular: S1, S2, No murmur Abdomen/GI:Soft, Non tender, Bowel sounds present Extremities/Musculoskelatal:normal inspection, no edema Neurologic/Psych:AAOX3, grossly no focal neurological deficits Skin: normal color, warm Results & Data Results & Data ([facility]) Vital Signs (Past 12 Hours) Vital Signs Temp Pulse Pulse Resp BP BP Pulse Ox 07/22/20 07:11 36.7 C 67 19 145/80 H 95 07/22/20 03:25 36.6 C 70 18 137/83 97 07/21/20 23:34 36.8 C 78 18 154/81 H 95 Laboratory Results BMP 07/21/20 07/22/20 11:42 06:17 Sodium 140 141 Potassium 5.4 H 4.5 D Chloride 114 H 111 H Carbon Dioxide 22 24 BUN 31 H 21 H Creatinine 1.31 1.14 Glucose 65 L 78 Calcium 8.7 9.2 (1) Acute renal failure superimposed on chronic kidney disease Acute renal failure type: unspecified Chronic kidney disease stage: stage 3 (moderate) Chronic kidney disease stage 3 subtype: unspecified whether 3a or 3b Qualified Code(s): N17.9 - Acute kidney failure, unspecified; N18.30 - Chronic kidney disease, stage 3 unspecified
--- NOTE | 2020-07-22 12:31 | Discharge Summary ---
Date of Service July 22, 2020 Admission HPI Per Admitting Provider this a 60 yo M with past medical hx of type 2 DM on insulin , HTN ,CKD stage 3 sent to ED by his family physician for abnormal lab work ; acute renal failure /hyperkalemia pt reports he has been eating a lot of oranges lately ( 6-8 of them ) daily has ongoing chronic diarrhea for months for the past 4-5 days -hugh more weak and tired , " wiped out " no fever or chills , no cough or SOB no muscle pain or ache , was seen at PCP clinic noted to have lab abnormality with elevated cr and high potassium level pt takes Lisinopril for hypertension denies of taking extra potassium supplement taking Licorice or any Herbal meds or supplements In ER K > 6 . Cr 1.7 no EKG changed pt was given IV insulin, Ca gluconate and IV fluid in ER on the floor pt reports feeling bit better after receiving IV fluids no nausea , no headache or visual symptoms Admission Exam Per Admitting Provider Physical Exam Constitutional: WD/WN, vitals as above Eyes: PERRL, conjunctivae normal, anicteric sclerae ENMT: external ear and nose normal, oropharynx normal Neck: trachea midline, no thyromegaly Respiratory: normal respiratory effort, lungs clear to auscultation Cardiovascular: RRR, no murmur, no edema Gastrointestinal (Abdomen): normal bowel sounds, soft, nontender, no hepatosplenomegaly Musculoskeletal: no cyanosis or clubbing, extremities motor strength 5/5 Skin: no rashes, warm and dry Neurologic: PERRL, EOMI, accommodation nl, no face palsy, no dysarthria Psychiatric: A+Ox3, euthymic affect Principal Diagnosis Acute kidney injury Hyperkalemia Hypomagnesemia Discharge Data Allergies Allergy/AdvReac Type Severity Reaction Status Date / Time morphine AdvReac Severe Hallucinati Verified 07/20/20 18:01 ng lorazepam AdvReac Unknown Confusion Verified 07/20/20 18:01 Consultations 07/20/20 18:16 Consult Nephrology Routine 07/20/20 18:17 ED Decision to Admit Stat 07/20/20 18:18 Consult Case Management - Discharge Planning Routine Ordered Studies 07/20/20 18:30 CT abd pelvis wo con Stat Hospital Course (1) Acute renal failure superimposed on chronic kidney disease: BRIAN on CKD Unknown baseline Cr Patient admits to taking ibuprofen for chronic RA Also has chronic diarrhea lisinopril discontinued for now Avoid nephrotoxic agents as able Advised to discontinue ibuprofen use Received IV fluids Appreciate nephrology input Needs follow-up with nephrology with repeat labs as outpatient Hypertension Lisinopril discontinued secondary to BRIAN, hyperkalemia Blood pressure variable Start on amlodipine 5 mg daily (2) Acute hyperkalemia: Secondary to above Received Kayexalate, IV calcium gluconate, IV insulin on presentation Hold ACEI, BRIAN Low potassium diet Potassium levels normalized Hypomagnesemia Continue magnesium supplements Fatigue /weakness : Possible due to acute renal failure /electrolyte imbalance Recent hx of COVID 19 infection on Apr 2020 COVID 19 test negative DM II: HbA1c 6.9 Continue insulin therapy Monitor BGs Code Status Full code DVT Px: Heparin SQ Total Time Total Time Spent Total Time Spent (In Minutes): 42 minutes Discharge Plan Discharge Items Patient Disposition: Home - Self-Care Reason For Visit: FATIGUE, HIGH POTASSIUM LEVEL Discharge Diagnosis: Acute kidney injury Hyperkalemia Hypomagnesemia Condition on Discharge: Serious Activity: Per Instructions section Exercise/Sports: Gradually increase as tolerated Non-emergency contact: Primary Care Provider and Resident Care Associate Call non-emergency contact if: you have any medication questions, your symptoms worsen, your pain is concerning for you and you have a fever Follow-up/Referrals: Skyla Galvin PA-C [Physician Entertainment Dancer] - (Date & Time 08/11/2020 2:30 PM Provider Skyla Galvin PA-C Department Nephrology [facility] ) Shlomo Sapp DO [Outside Practitioners] - 07/26/20 10:00 am Diet: Carb Consistent or DM2 Ambulatory Orders: Basic Metabolic Panel (Routine) Timeframe: 1 Week Location: Determined by Patient Ordered By: Memo High Magnesium (Routine) Timeframe: 1 Week Location: Determined by Patient Ordered By: Memo High Addtl Attending Provider Instructions: Follow-up with your primary care physician with repeat blood work as scheduled Follow up with your Resident Care Associate at CKD clinic as Instructed Please establish with rheumatology as instructed for further management of your chronic pain Avoid taking nonsteroidal anti-inflammatory drugs like ibuprofen, Naproxen etc as they can worsen your kidney function. Your lisinopril is discontinued until further recommendations by your affiliate marketing specialist. You were started on amlodipine 5 mg daily for control of your blood pressure. Further instructions as per your primary care physician or affiliate marketing specialist. Seek immediate medical attention if your symptoms reoccur or worsen Pending Studies at Discharge: No Stand-Alone Forms: My [facility], Smoking Cessation Medications and DC Order Prescriptions: New magnesium chloride [Mag 64] 64 mg Tablet,Delayed Release (Dr/Ec) 64 mg PO QAM Qty: 30 RF: 1 amlodipine 5 mg tablet 5 mg PO DAILY Qty: 30 RF: 0 Continued insulin NPH and regular human 100 unit/mL (70-30) suspension 60 units subcut BID RF: 0 metformin 1,000 mg tablet 1,000 mg PO BID RF: 0 omeprazole 20 mg capsule,delayed release(DR/EC) 20 mg PO QAM RF: 0 sertraline 100 mg tablet 100 mg PO BID RF: 0 glipizide 5 mg tablet extended release 24hr 5 mg PO BID RF: 0 tamsulosin 0.4 mg capsule 0.4 mg PO QAM RF: 0 simvastatin 40 mg tablet 40 mg PO QPM RF: 0 insulin lispro [Humalog U-100 Insulin] 100 unit/mL Solution 1 sliding scale dose SUBCUT USEASDIRECTD PRN (Reason: Cover Carbs) RF: 0 Discontinued lisinopril 20 mg tablet 20 mg PO QAM RF: 0 Discharge Orders: Discharge Order (Routine); Ordered 07/22/20 Ordered By: Memo High Admission Data Admit Date/Time: 07/20/20 18:16 Attending Provider: Memo High Admit Provider: Juanita Hurtado Primary Care Provider: PCP,NO Other Providers: Zoila Maldonado ; Toby Gaston ; Zulma Zhang ; Skyla Galvin ; Delores Lopez ; Leesa Espinoza ; Juanita Hurtado Other Interventions: Discharge Summary Assessment (RN) Last Done: 07/22/20 12:42
--- NOTE | 2020-07-22 16:38 | Electrocardiogram Report ---
Test Reason : Blood Pressure : / mmHG Vent. Rate : 068 BPM Atrial Rate : 068 BPM P-R Int : 230 ms QRS Dur : 088 ms QT Int : 386 ms P-R-T Axes : 063 -01 065 degrees QTc Int : 410 ms Sinus rhythm with 1st degree A-V block Otherwise normal ECG When compared with ECG of 21-JUL-2020 06:54, No significant change was found Confirmed by Eduardo Bell ([id number]) on 07/22/2020 4:37:56 PM Referred By: REFERRED SELF Confirmed By:Eduardo Bell
--- NOTE | 2020-07-30 08:48 | Coding Query ---
CODING QUERY To promote full compliance with coding requirements relating to patient care, provider participation is requested in all cases of gun number uncertainty. Please assist us with the question(s) below: Coding Question(s): Transplant Worker progress note on 07/22/20 indicated prerenal/ischemic ATN acute renal failure. Could you please clarify which of these were this patient's kidney failure below. Physician's Response(s): ( x) Prerenal renal failure ( ) Ischemic ATN renal failure ( ) Other, please specify Thank you Syeda Arguelles Principal Diagnosis: "that condition established after study, to be chiefly responsible for occasioning the admission of the patient to the hospital for care." Co-Existing Principal Diagnosis: "when two or more diagnoses equally meet the criteria for principal diagnosis as determined by the circumstances of admission, diagnostic work up, and/or therapy provided, and the Alphabetic Index, Tabular List, or another coding guideline does not provide sequencing direction, any one of the diagnoses may be sequenced first." "When the physician has documented what appears to be a current diagnosis in the body of the record, but has not included the diagnosis in the final diagnostic statement, the physician should be asked whether the diagnosis should be added." (Source Coding Clinic 2 QTR90. p3-4) MIKE
== END 2020-07-22 12:59 | disposition home or self-care (01) | DRG 684 ==
LOC: ED 15:45 → 2S 18:16 → SUATTDRO 18:16 → 2S 20:25

== ENCOUNTER 2021-05-05 14:56 | Inpatient (IN) ==
[2021-05-05 16:05] LABS: Basophils # (auto) 0.01 K/uL (0-0.2); Basophils % (auto) 0.1 %; Eosinophils # (auto) 0.13 K/uL (0-0.5); Eosinophils % (auto) 0.9 %; Hematocrit (blood only) 34.3 % (42-52); Immature Granulocytes # (auto) 0.04 K/uL (0.00-0.02); Immature Granulocytes % (auto) 0.3 %; Lymphocytes # (auto) 1.48 K/uL (1.2-3.4); Lymphocytes % (auto) 10.6 %; Mean Corpuscular Hemoglobin 26.6 pg (25-34); Mean Corpuscular Hgb Conc 32.1 g/dL (32-36); Mean Corpuscular Volume 82.9 fL (80-100); Mean Platelet Volume 11.4 fL (7.4-10.4); Monocytes # (auto) 1.24 K/uL (0.11-0.59); Monocytes % (auto) 8.9 %; Neutrophils # (auto) 11.04 K/uL (1.4-6.5); Neutrophils % (auto) 79.2 %; Platelet Count 243 K/uL (130-400); RDW Standard Deviation 45.4 fL (36.4-46.3); Red Blood Count 4.14 M/uL (4.7-6.1); White Blood Count 13.94 K/uL (4.8-10.8)
[2021-05-05] MEDS ORDERED: VANCOMYCIN CONSULT ACTIVE PRN (16:23)
[2021-05-05] MEDS ORDERED: PIPERACILLIN/TAZOBACTAM 4.5 GM/120 ML BAG IV ONE (16:23)
[2021-05-05] MEDS ORDERED: PIPERACILL/TAZOBAC CONSULT ACTIVE PRN (16:23)
[2021-05-05] MEDS ORDERED: VANCOMYCIN HCL 2,500 MG in SODIUM CHLORIDE 0.9% 500 ML IV ONE (16:23)
--- NOTE | 2021-05-05 16:36 | Emergency Department Note ---
History of Present Illness General Chief complaint: Infection Stated complaint: INFECTION IN LET FOOT, DR REFERRED Time Seen by Provider: 05/05/21 16:05 History of Present Illness Maximum Pain Intensity: 5 This 61-year-old male patient with significant past medical history of obesity, uncontrolled type 2 diabetes, CKD, PE, presents to the emergency department today for evaluation of infection of the left great toe. The patient states 3 days ago, he noticed swelling and redness of the left great toe. He does report history of chronic foot ulcers and generally soaks his feet and uses peroxide regularly. He has been doing this as usual, but noticed increase in the swelling and redness. He states he has been experiencing some subjective fevers, chills, nausea, vomiting, and generalized fatigue for the past few days. Symptoms seem to be worse overnight. He saw his PCP today who referred him to the emergency department for the infection. Pt. does report some pain, 5/10 of the left foot. Home Medications Medication Instructions Recorded Confirmed Type metformin 1,000 mg tablet 1,000 mg PO BID 06/24/18 05/05/21 History glipizide 5 mg tablet, extended 5 mg PO QAM 04/28/20 05/05/21 History release 24 hr omeprazole 20 mg capsule,delayed 20 mg PO QAM 04/28/20 05/05/21 History release sertraline 100 mg tablet 100 mg PO BID 04/28/20 05/05/21 History simvastatin 40 mg tablet 40 mg PO QPM 04/28/20 05/05/21 History tamsulosin 0.4 mg capsule 0.4 mg PO QAM 04/28/20 05/05/21 History amlodipine 5 mg tablet 5 mg PO QAM 07/23/20 05/05/21 History multivitamin 1 tab PO QAM 07/23/20 05/05/21 History cyclobenzaprine 5 mg tablet 5 mg PO TID PRN 05/05/21 05/05/21 History docusate sodium 100 mg capsule 100 mg PO BID 05/05/21 05/05/21 History gabapentin 300 mg capsule 300 mg PO TID 05/05/21 05/05/21 History insulin aspart U-100 100 unit/mL 1 sliding scale dose SUBCUT 05/05/21 05/05/21 History subcutaneous solution USEASDIRECTD insulin glargine 100 unit/mL 60 unit SUBCUT BID 05/05/21 05/05/21 History subcutaneous solution lidocaine 4 % topical patch 1 patch TOPICAL DAILY PRN 05/05/21 05/05/21 History lisinopril 2.5 mg tablet 2.5 mg PO DAILY 05/05/21 05/05/21 History polyethylene glycol 3350 17 17 g PO DAILY 05/05/21 05/05/21 History gram/dose oral powder (Miralax) sennosides 8.6 mg tablet (Senokot) 8.6 mg PO DAILY 05/05/21 05/05/21 History Allergies Allergy/AdvReac Type Severity Reaction Status Date / Time No Known Allergies Allergy Verified 05/05/21 17:31 Past Med/Surg History Medical History BPH (benign prostatic hyperplasia) Chronic back pain Chronic kidney disease COPD (chronic obstructive pulmonary disease) COVID-19 virus detected 04/2020 +, n/v, diarrhea Depression DM type 2 (diabetes mellitus, type 2) GERD (gastroesophageal reflux disease) History of pulmonary embolism when hospitalized for bacteremia and OM, 7 years ago, [facility] Hyperkalemia hx, recent admission Hyperlipidemia Hypertension MRSA bacteremia "spine" Neuropathy of both feet Obesity Osteoarthritis Rheumatoid arthritis Tobacco abuse Surgical History History of left hip replacement History of removal of cyst chin, 40 years ago History of right hip replacement History of shoulder surgery Right x 2 Family History Father Diabetes Lung disease emphysema Mother Hypertension Denies family history of Heart disease Social History Smoking Status: Current some day smoker Tobacco Type: Smokeless Tobacco (Dip or Chew) Cigarettes Per Day: 25-30pack history; Second Hand Exposure: No; Hx Alcohol Use: Yes Alcohol type: beer Alcohol Intake Frequency Comment: 4 beers a week Hx Substance Use: No Preferred Language: Icelandic Communication Ability: Effective Partition Assembler Required: No Beliefs That Will Affect Care: None marital status: Current Living Situation: Alone current occupational status: disabled Feels Safe at Home: Yes Assistive Devices: None Review of Systems A total of 10 systems reviewed and were otherwise negative Physical Exam Vital Signs Vital Signs - 24 hr 05/05/21 15:07 05/05/21 18:22 Temperature 36.9 C Temperature Source Temporal Artery Scan Pulse Rate 82 Pulse Rate [Right Finger] 68 Respiratory Rate 18 16 Blood Pressure 115/64 Blood Pressure [Right Arm] 111/62 Blood Pressure Mean 81 Blood Pressure Mean [Right Arm] 78 Pulse Oximetry 92 93 Oxygen Delivery Method Room Air Room Air Sepsis Recent Fever Within 48 Hours No Sepsis New/Unexplained Change in Mental Status No Sepsis Action Taken by Nursing No Action Required VITALS: Vitals are noted on the nurse's note and reviewed by myself. Vital signs stable. GENERAL: This is a 61-year-old white male, in no acute distress, nondiaphoretic, well-developed well-nourished. SKIN: Macerated skin on the left great toe with some erythema extending around the toe and into the foot. There is a tunneling ulcerated and necrotic appearing wound noted on the plantar aspect of the left great toe. There is purulent discharge from around the toenail. The skin was otherwise without rashes, erythema, edema, or bruising. There is no tenting of the skin. Capillary refill less than 2 seconds. HEAD: Normocephalic atraumatic. EARS: External auditory canals clear, tympanic membranes pearly fabian without erythema or effusion bilaterally. EYES: Pupils equal round and reactive to light and accommodation. Conjunctivae without injection, sclerae without icterus. Extraocular movements intact. NOSE: Patent, turbinates without inflammation or discharge. No sinus tenderness. MOUTH: Mucous membranes moist. Tonsils are not enlarged. Pharynx without erythema or exudate. Uvula midline. Airway patent. Tongue does not deviate. NECK: Supple without nuchal rigidity. No lymphadenopathy. No thyromegaly. Cervical spine is nontender. No JVD. HEART: Regular rate and rhythm without murmurs gallops or rubs. LUNGS: Clear to auscultation bilaterally without wheezes, rales or rhonchi. No retractions or accessory muscle use. ABDOMEN: Positive bowel sounds x 4. Normal tympanic percussion. Soft, nontender, without masses or organomegaly. Tate sign negative. No guarding or rebound tenderness. MUSCULOSKELETAL: No muscle atrophy, erythema, or edema noted. Full range of motion without joint tenderness in all extremities. No tenderness to palpation. Normal gait. Strength 5/5 throughout. NEURO: Patient was alert and oriented to person place and time. Normal sensation to light and sharp touch. Deep tendon reflexes 2+ throughout. No focal neurological deficits. Course Course The patient was seen and evaluated as above. Pt. initially seen in triage due to high volume, high acuity in the ED in the setting of the Covid-19 pandemic. I discussed the case with my attending physician. IV access obtained, labs drawn. Pt. medicated with Vancomycin and Zosyn. He was hydrated with IV fluids. Imaging performed and reviewed by myself and radiologist as noted. Labs reviewed by myself. I discussed the findings with the patient at bedside. Recommended admission. Pt. agreeable. I discussed the case with the feedlot manager. I discussed the case with the [facility] Hospitalist, Dr. Ryan. He did agree to see and evaluate the patient. Administered Medications Docusate Sodium (Docusate Sodium 100 Mg Cap) 100 mg PO BID [facility] Stop: 06/04/21 20:59 Last Admin: 05/05/21 22:34 Dose: 100 mg Documented by: [id number] Gabapentin (Gabapentin 300 Mg Cap) 300 mg PO TID [facility] Stop: 06/04/21 20:59 Last Admin: 05/05/21 22:34 Dose: 300 mg Documented by: [id number] Piperacillin Sod/Tazobactam (Sod 4.5 gm/ Dextrose) 120 mls @ 30 mls/hr IV Q8H [facility]; Protocol Stop: 06/17/21 00:00 Last Admin: 05/05/21 23:59 Dose: 30 mls/hr Documented by: [id number] Lactated Ringer's (Lr) 1,000 mls @ 125 mls/hr IV .Q8H [facility] Stop: 06/04/21 21:29 Last Admin: 05/05/21 22:29 Dose: 125 mls/hr Documented by: [id number] Insulin Aspart (Insulin Aspart Per Unit) 0 units SC ACHS [facility] Stop: 06/04/21 21:29 Last Admin: 05/05/21 22:28 Dose: Not Given Documented by: [id number] Cosigned by: [id number] Sertraline HCl (Sertraline Hcl 100 Mg Tablet) 100 mg PO BID [facility] Stop: 06/04/21 20:59 Last Admin: 05/05/21 22:34 Dose: 100 mg Documented by: [id number] Discontinued Medications Vancomycin HCl 2,500 mg/ (Sodium Chloride) 550 mls @ 200 mls/hr IV NOW ONE Stop: 05/05/21 19:07 Last Admin: 05/05/21 18:35 Dose: Not Given Documented by: [id number] Piperacillin Sod/Tazobactam Sod (Zosyn) 4.5 gm in 120 mls @ 240 mls/hr IV NOW ONE Stop: 05/05/21 16:52 Last Infusion: 05/05/21 18:48 Dose: 0 mls/hr Documented by: [id number] Admin: 05/05/21 18:13 Dose: 240 mls/hr Documented by: [id number] Sodium Chloride (Nss) 500 mls @ 999 mls/hr IV .Q31M ONE Stop: 05/05/21 17:51 Last Infusion: 05/05/21 19:06 Dose: 0 mls/hr Documented by: [id number] Admin: 05/05/21 18:29 Dose: 999 mls/hr Documented by: [id number] Daptomycin 550 mg/ Syringe 11 mls @ 5.5 mls/min IV ONE ONE; Protocol Stop: 05/05/21 18:46 Last Admin: 05/05/21 19:08 Dose: 5.5 mls/min Documented by: [id number] Sodium Chloride (Nss 1000ml) 500 mls @ 999 mls/hr IV .Q31M ONE Stop: 05/05/21 18:59 Last Infusion: 05/05/21 19:50 Dose: 0 mls/hr Documented by: [id number] Admin: 05/05/21 19:00 Dose: 999 mls/hr Documented by: [id number] Insulin Detemir (Insulin Detemir Flexpen/Flex Touch 100 Units/Ml 3ml) 20 units SC ONE ONE Stop: 05/05/21 21:31 Last Admin: 05/05/21 22:29 Dose: 20 units Documented by: [id number] Cosigned by: [id number] Medical Decision Making Differential Diagnosis Osteomyelitis, cellulitis, abscess, MRSA infection, DVT, necrotizing fasciitis, dermatitis, drug eruption, allergic reaction, as well as other pathologies. Medical Records Attestation: I reviewed the patient's medical records. Home Medications Current Medication List: was personally reviewed by me Laboratory Data Attestation: I reviewed the patient's lab results. Leukocytosis of 13,000. Anemia with a hemoglobin of 11. Hematocrit of 34.3. No thrombocytopenia. Lactic acid 1.5. Creatinine elevated at 1.99. Inflammatory markers elevated. Blood glucose 202. Hepatic function without abnormality. Result diagrams: 05/05/21 Unknown 05/05/21 Unknown Lab Results 05/05/21 05/05/21 05/05/21 Range/Units 16:23 16:23 17:22 ESR 55 H (0-20) mm/hr Lactate (0.4-2.0) mmol/L C-Reactive Protein Cancelled SARS-CoV-2, RNA, NAAT NEGATIVE (NEGATIVE) 05/05/21 Range/Units 17:32 ESR (0-20) mm/hr Lactate 1.5 (0.4-2.0) mmol/L C-Reactive Protein SARS-CoV-2, RNA, NAAT (NEGATIVE) Imaging Data Radiologist's Impression: Foot X-Ray 05/05/21 16:12 XR foot LT min 3V routine HISTORY: 61 years-old Male pain, infection, wound great toe acute left foot pain with reported soft tissue infection and diabetic ulcer COMPARISON: None TECHNIQUE: 3 views of the left foot FINDINGS: Moderate soft tissue swelling, most pronounced within the first digit which demonstrates distal soft tissue gas. Multifocal osteoarthritis is moderate within the first MTP joint. Hallux valgus with associated first metatarsal bunion. Mild cortical erosions are noted involving the medial distal cortex of the first proximal phalanx with adjacent medial and lateral periosteal elevation. IMPRESSION: Soft tissue swelling with deep tissue involving the first digit suggestive of gas-forming organism versus direct extension from an open wound. There are adjacent findings of acute and subacute osteomyelitis of the first proximal phalanx. ACT 112: Negative or not required by law. The above report was generated using voice recognition software. It may contain grammatical, syntax or spelling errors. Electronically signed by: Jung Field M.D. 05/05/2021 5:02 PM Duplex Scan Lower Extremity Artery 05/05/21 17:27 US arterial duplex LE LT CLINICAL HISTORY: r/o PAD TECHNIQUE: Real-time grayscale and color and spectral Doppler ultrasound imaging of the bilateral lower extremity arteries was performed. Measurements calculated based on NASCET criteria. COMPARISON: None available at the time of this dictation. FINDINGS: LEFT: Common femoral artery: Patent. Triphasic waveforms. Peak systolic velocity (PSV) 188 cm/s. Deep femoral artery: Patent. Triphasic waveforms. PSV 178 cm/s. Superficial femoral artery: Patent. Triphasic waveforms. PSV 169 cm/s. Popliteal artery: Patent. Triphasic waveforms. PSV 101 cm/s. Anterior tibial artery: Patent. Triphasic waveforms. PSV 119 cm/s. Posterior tibial artery: Patent. Triphasic waveforms. PSV 72 cm/s. Peroneal artery: Patent. Triphasic waveforms. PSV 105 cm/s. Dorsalis pedis: Patent. Triphasic waveforms. PSV 125 cm/s. Minimal plaque is seen. IMPRESSION: No hemodynamically significant stenosis. ACT 112: Negative or not required by law. Electronically signed by: Dony Benson M.D. 05/05/2021 7:57 PM Venous Doppler Study 05/05/21 18:20 US venous doppler LE LT CLINICAL HISTORY: r/o DVT COMPARISON: None available at the time of this dictation. TECHNIQUE: Left lower extremity real-time compression venous ultrasound with Color Doppler imaging. Utilizing real-time ultrasonic imaging multiple real time high-resolution ultrasonic images with compression and noncompression maneuvers of the deep venous system in addition to color doppler imaging were performed from the common femoral vein through the proximal calf veins. FINDINGS: Currently there is normal compressibility of the deep venous system from the common femoral vein through the proximal calf veins. No current evidence of acute thrombosis is identified. Impression: No evidence of deep venous thrombus. ACT 112: Negative or not required by law. Electronically signed by: Dony Benson M.D. 05/05/2021 7:55 PM Blood Pressure Blood Pressure Findings: Normal blood pressure MDM Narrative This 61-year-old male patient presents to the emergency department today for e valuation of left great toe infection. The patient has had a chronic wound on this toe which he has noticed worsening with increased redness, pain, and swelling over the past 3 days. He has had chills, fevers, nausea and vomiting associated with his symptoms. He was found to have a leukocytosis. He was also found to have an BRIAN with a creatinine of 1.99. He is diabetic. He was started on IV fluids, and IV antibiotics. Patient will be admitted to the [facility] hospitalist service. Please see hospitalist dictation regarding ongoing management and care of this patient. The chart was completed utilizing ERN Speech voice recognition software. Grammatical errors, random word insertions, pronoun errors, and incomplete sentences are an occasional consequence of this system due to software limitations, ambient noise, and hardware issues. Any formal questions or concerns about the content, text, or information contained within the body of this dictation should be directly addressed to the provider for clarification. Impression & Plan Osteomyelitis, DM type 2 (diabetes mellitus, type 2), Obesity Discharge Plan Visit Data Chief Complaint: Infection Stated Complaint: INFECTION IN LET FOOT, DR REFERRED ED Provider: Sergey Aguilar ED Midlevel Provider: Sara Strong Discharge Problem: Osteomyelitis, DM type 2 (diabetes mellitus, type 2), Obesity Patient Disposition: Admitted As Inpatient Discharge Instructions Interventions: ED Discharge Assessment Last Done: 05/05/21 20:27
[2021-05-05 16:51] LABS: Albumin Globulin Ratio 0.7 (0.9-2); Albumin Level 3.2 gm/dl (3.4-5.0); BUN Creatinine Ratio 21.3 (10-20); Bilirubin,Total 0.2 mg/dl (0.2-1); Calcium 8.7 mg/dl (8.5-10.1); Creatinine Clr Calc Pharmacy 48.9 ml/min; Est GFR (African American) 40.5 ml/min; Est GFR (Non-African American) 34.9 ml/min; Globulin 4.4 gm/dl (2.5-4.0); Potassium 5.1 mmol/L (3.5-5.1); Total Protein 7.6 gm/dl (6.4-8.2)
--- NOTE | 2021-05-05 17:04 | XRay Report ---
XR foot LT min 3V routine HISTORY: 61 years-old Male pain, infection, wound great toe acute left foot pain with reported soft tissue infection and diabetic ulcer COMPARISON: None TECHNIQUE: 3 views of the left foot FINDINGS: Moderate soft tissue swelling, most pronounced within the first digit which demonstrates distal soft tissue gas. Multifocal osteoarthritis is moderate within the first MTP joint. Hallux valgus with asso ciated first metatarsal bunion. Mild cortical erosions are noted involving the medial distal cortex o f the first proximal phalanx with adjacent medial and lateral periosteal elevation. IMPRESSION: Soft tissue swelling with deep tissue involving the first digit suggestive of gas-forming organism versus direct extension from an open wound. There are adjacent findings of acute and subacu te osteomyelitis of the first proximal phalanx. ACT 112: Negative or not required by law. The above report was generated using voice recognition software. It may contain grammatical, syntax o r spelling errors. Electronically signed by: Jung Field M.D. 05/05/2021 5:02 PM
[2021-05-05] MEDS ORDERED: SODIUM CHLORIDE 0.9% 500 ML IV ONE (17:21)
[2021-05-05 17:36] LABS: C Reactive Protein 18.4 mg/dl (0-0.29)
--- NOTE | 2021-05-05 18:25 | History & Physical Report ---
Date of Service May 05, 2021 Assessment & Plan (1) Osteomyelitis: Plan: Left 1st toe phalanx osteomyelitis Daptomycin + Zosyn Consult orthopedics Follow up wound and blood cultures ESR 55, CRP 18.4 on admission US arterial doppler (assess for PAD) and venous doppler (assess for DVT) (2) Acute kidney injury: Plan: Suspect pre-renal from infection and dehydration. Cr 1.99 from 1.0 NSS 1L bolus given in ER. Continue LR @ 125 ml/hr (3) History of pulmonary embolism: Plan: US venous doppler pending Will need prophylaxis pending surgical decision and US venous doppler as above (4) Rheumatoid arthritis: Plan: Noted history of this. On no routine medication. (5) COPD (chronic obstructive pulmonary disease): Plan: Noted history of this. No on any regular inhalers. No acute exacerbation suspect on exam (6) GERD (gastroesophageal reflux disease): Plan: Switch omeprazole to pantoprazole per hospital formulary (7) Hypertension: Plan: Continue amlodipine 5mg PO daily, hold lisinopril in setting of BRIAN as above (8) Depression: Plan: Continue his usual sertraline (9) DM type 2 (diabetes mellitus, type 2): Plan: HbA1C 6.9 in July, repeat with AM labs Consult pharmacy for glycemic control (10) History of MRSA infection: Plan: Noted prior bacteremia of his spine. Plan: VTE Prophylaxis - deferred pending further workup and surgical decision Diet - T2DM Disposition - admit to med/surg Admission and Anticipated Discharge Date Admission Date: May 05, 2021 History of Present Illness Chief Complaint: 1st left toe ulcer Primary Care Provider: Salina Benitez PA-C Jose Cabrera is a 61 year old male with uncontrolled diabetes who presents to the ER with left foot ulcer. He reports chronic foot ulcers on both feet. However his left great toe started become increasingly red, swollen a month ago but much worse with purulent drainage in the last few days. He went to his PCP today who sent . He denies any fever or chills. He has diabetes with HbA1C 6.9 in July. He denies any prior history of heart attack or stroke. No known DVT or PAD. He reports left leg swelling for the last week. In the ER XR was concerning for osteomyelitis of his 1st great toe. He was started on Zosyn and Vancomycin (although vancomycin was discontinued and switched to daptomycin prior to being given). Allergies Allergy/AdvReac Type Severity Reaction Status Date / Time No Known Allergies Allergy Verified 05/05/21 17:31 Home Medications Medication Instructions Recorded Confirmed Type metformin 1,000 mg tablet 1,000 mg PO BID 06/24/18 05/05/21 History glipizide 5 mg tablet, extended 5 mg PO QAM 04/28/20 05/05/21 History release 24 hr omeprazole 20 mg capsule,delayed 20 mg PO QAM 04/28/20 05/05/21 History release sertraline 100 mg tablet 100 mg PO BID 04/28/20 05/05/21 History simvastatin 40 mg tablet 40 mg PO QPM 04/28/20 05/05/21 History tamsulosin 0.4 mg capsule 0.4 mg PO QAM 04/28/20 05/05/21 History amlodipine 5 mg tablet 5 mg PO QAM 07/23/20 05/05/21 History multivitamin 1 tab PO QAM 07/23/20 05/05/21 History cyclobenzaprine 5 mg tablet 5 mg PO TID PRN 05/05/21 05/05/21 History docusate sodium 100 mg capsule 100 mg PO BID 05/05/21 05/05/21 History gabapentin 300 mg capsule 300 mg PO TID 05/05/21 05/05/21 History insulin aspart U-100 100 unit/mL 1 sliding scale dose SUBCUT 05/05/21 05/05/21 History subcutaneous solution USEASDIRECTD insulin glargine 100 unit/mL 60 unit SUBCUT BID 05/05/21 05/05/21 History subcutaneous solution lidocaine 4 % topical patch 1 patch TOPICAL DAILY PRN 05/05/21 05/05/21 History lisinopril 2.5 mg tablet 2.5 mg PO DAILY 05/05/21 05/05/21 History polyethylene glycol 3350 17 17 g PO DAILY 05/05/21 05/05/21 History gram/dose oral powder (Miralax) sennosides 8.6 mg tablet (Senokot) 8.6 mg PO DAILY 05/05/21 05/05/21 History Past Med/Surg History Medical History BPH (benign prostatic hyperplasia) Chronic back pain Chronic kidney disease COPD (chronic obstructive pulmonary disease) COVID-19 virus detected 04/2020 +, n/v, diarrhea Depression DM type 2 (diabetes mellitus, type 2) GERD (gastroesophageal reflux disease) History of pulmonary embolism when hospitalized for bacteremia and OM, 7 years ago, [facility] Hyperkalemia hx, recent admission Hyperlipidemia Hypertension MRSA bacteremia "spine" Neuropathy of both feet Obesity Osteoarthritis Rheumatoid arthritis Tobacco abuse Surgical History History of left hip replacement History of removal of cyst chin, 40 years ago History of right hip replacement History of shoulder surgery Right x 2 Family History Father Diabetes Lung disease emphysema Mother Hypertension Denies family history of Heart disease Social History Smoking Status: Never smoker Tobacco Type: Smokeless Tobacco (Dip or Chew) Cigarettes Per Day: 25-30pack history; Second Hand Exposure: No; Do You Dip or Chew Tobacco: Yes; Hx Alcohol Use: Yes Alcohol type: beer Alcohol Intake Frequency Comment: 4 b eers a week Hx Substance Use: No Preferred Language: Moldovan Communication Ability: Effective 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: No Beliefs That Will Affect Care: None marital status: Current Living Situation: Alone current occupational status: disabled Other Information That Helps Us Care for You: No Feels Safe at Home: Yes Safety Concerns: Feels Safe At This Time Assistive Devices: None Review of Systems Review of Systems: All systems reviewed & are unremarkable except as noted in HPI & below Physical Exam Constitutional: well developed and + disheveled; + not well nourished and no acute distress Eyes: + anicteric sclerae; normal pupil size ENMT: external ear and nose normal, oropharynx normal Neck: trachea midline, no thyromegaly Cardiovascular: Rate/Rhythm: regular rate and regular rhythm Heart Sounds: no murmur Vessels: + posterior tibial pulses abnormal (left, unable to palpate) and + dorsalis pedis pulses abnormal (left, unable to palpate) Extremities: normal capillary refill and + pedal edema (2+ left leg); no calf tenderness Gastrointestinal (Abdomen): normal bowel sounds, soft, nontender, no hepatosplenomegaly Skin: + ulcer Left great toe plantar ulcer with necrotic tissue down to bone, lateral ulcer with purulent material Erythema and swelling to base of toe with Neurologic: moves all extremities and awake; no focal motor deficits and not confused Psychiatric: A+Ox3, euthymic affect Results & Data Results & Data ([facility]) Vital Signs (Past 12 Hours) Vital Signs Temp Pulse Resp BP Pulse Ox 05/05/21 15:07 36.9 C 82 18 115/64 92 Diagnostic Findings XR foot LT min 3V routine HISTORY: 61 years-old Male pain, infection, wound great toe acute left foot pain with reported soft tissue infection and diabetic ulcer COMPARISON: None TECHNIQUE: 3 views of the left foot FINDINGS: Moderate soft tissue swelling, most pronounced within the first digit which demonstrates distal soft tissue gas. Multifocal osteoarthritis is moderate within the first MTP joint. Hallux valgus with associated first metatarsal bunion. Mild cortical erosions are noted involving the medial distal cortex of the first proximal phalanx with adjacent medial and lateral periosteal elevation. IMPRESSION: Soft tissue swelling with deep tissue involving the first digit sugg estive of gas-forming organism versus direct extension from an open wound. There are adjacent findings of acute and subacute osteomyelitis of the first proximal phalanx. Medications Administered ER Medications Given: Zosyn 4.5g IV Vancomycin 2500mg IV (not given) NSS 500 ml bolus ECG Indication: other (Pre - op) Rate (beats per minute): 94 Rhythm: normal sinus Findings: no acute ischemic change Comparison ECG Date: from (July 22, 2020) Change: the following changes noted (AL interval increased) PG Care Time/CCT Total # of Minutes Spent Total Time Spent with Patient: Total time spent is greater than 50% in coordination of care (as documented) at patient's floor/unit and/or counseling patient: Coding Level of Care Code 67845 Initial Inpt Care Lvl 2 Diagnoses Osteomyelitis M86.9 Acute kidney injury N17.9 History of pulmonary embolism Z86.711 Rheumatoid arthritis M06.9 Laterality: unspecified laterality Rheumatoid factor presence: unspecified presence COPD (chronic obstructive pulmonary disease) J44.9 COPD type: unspecified COPD GERD (gastroesophageal reflux disease) K21.9 Esophagitis presence: esophagitis presence not specified Hypertension I10 Depression F32.9 Depression Type: unspecified DM type 2 (diabetes mellitus, type 2) E11.65; Z79.4 Diabetes mellitus complication status: with hyperglycemia Diabetes mellitus ocean transportation intermediary insulin use: with ocean transportation intermediary use History of MRSA infection Z86.14 (1) Rheumatoid arthritis Laterality: unspecified laterality Rheumatoid factor presence: unspecified presence (2) DM type 2 (diabetes mellitus, type 2) Diabetes mellitus complication status: with hyperglycemia Diabetes mellitus ocean transportation intermediary insulin use: with fpc use Qualified Code(s): E11.65 - Type 2 diabetes mellitus with hyperglycemia; Z79.4 - detention (current) use of insulin (3) Depression Depression Type: unspecified Qualified Code(s): F32.9 - Major depressive disorder, single episode, unspecified (4) COPD (chronic obstructive pulmonary disease) COPD type: unspecified COPD Qualified Code(s): J44.9 - Chronic obstructive pulmonary disease, unspecified (5) GERD (gastroesophageal reflux disease) Esophagitis presence: esophagitis presence not specified Qualified Code(s): K21.9 - Gastro-esophageal reflux disease without esophagitis
[2021-05-05] MEDS ORDERED: SODIUM CHLORIDE 0.9% 1000ML 500 ML IV ONE (18:29)
[2021-05-05] MEDS ORDERED: DAPTOmycin 550 MG in SYRINGE 0 ML IV ONE (18:45)
--- NOTE | 2021-05-05 19:56 | Ultrasound Report ---
US venous doppler LE LT CLINICAL HISTORY: r/o DVT COMPARISON: None available at the time of this dictation. TECHNIQUE: Left lower extremity real-time compression venous ultrasound with Color Doppler imaging. Utilizing real-time ultrasonic imaging multiple real time high-resolution ultrasonic images with comp ression and noncompression maneuvers of the deep venous system in addition to color doppler imaging w ere performed from the common femoral vein through the proximal calf veins. FINDINGS: Currently there is normal compressibility of the deep venous system from the common femoral vein thro ugh the proximal calf veins. No current evidence of acute thrombosis is identified. Impression: No evidence of deep venous thrombus. ACT 112: Negative or not required by law. Electronically signed by: Dony Benson M.D. 05/05/2021 7:55 PM
--- NOTE | 2021-05-05 19:57 | XRay Report ---
XR chest 1V portable CLINICAL HISTORY: Hypoxia TECHNIQUE: Single frontal radiograph of the chest was obtained. Comparison: Comparison is made to chest one view 04/28/2020 FINDINGS: No lines and tubes are seen. The cardiomediastinal silhouette is normal. Lungs are underinflated. The re is an airspace opacity in the left lower lung and suggestion of a previously noted 15 mm nodule in the left midlung. No evidence of pleural effusion or pneumothorax. IMPRESSION: Left lower lung opacity likely represents atelectasis with or without superimposed pneumonia and/or a spiration. ACT 112: Negative or not required by law. Electronically signed by: Dony Benson M.D. 05/05/2021 7:56 PM
--- NOTE | 2021-05-05 19:58 | Ultrasound Report ---
US arterial duplex LE LT CLINICAL HISTORY: r/o PAD TECHNIQUE: Real-time grayscale and color and spectral Doppler ultrasound imaging of the bilateral low er extremity arteries was performed. Measurements calculated based on NASCET criteria. COMPARISON: None available at the time of this dictation. FINDINGS: LEFT: Common femoral artery: Patent. Triphasic waveforms. Peak systolic velocity (PSV) 188 cm/s. Deep femoral artery: Patent. Triphasic waveforms. PSV 178 cm/s. Superficial femoral artery: Patent. Triphasic waveforms. PSV 169 cm/s. Popliteal artery: Patent. Triphasic waveforms. PSV 101 cm/s. Anterior tibial artery: Patent. Triphasic waveforms. PSV 119 cm/s. Posterior tibial artery: Patent. Triphasic waveforms. PSV 72 cm/s. Peroneal artery: Patent. Triphasic waveforms. PSV 105 cm/s. Dorsalis pedis: Patent. Triphasic waveforms. PSV 125 cm/s. Minimal plaque is seen. IMPRESSION: No hemodynamically significant stenosis. ACT 112: Negative or not required by law. Electronically signed by: Dony Benson M.D. 05/05/2021 7:57 PM
[2021-05-05] MEDS ORDERED: POLYETHYLENE (MIRALAX) 17 GM PACK PO PRN (20:35)
[2021-05-05] MEDS ORDERED: PHARMACY GLYCEMIC MGMT CONSULT PRN (20:35)
[2021-05-05] MEDS ORDERED: ONDANSETRON INJ 2 MG/ML 2 ML VIAL IV PRN (20:35)
[2021-05-05] MEDS ORDERED: SIMVASTATIN 40 MG TAB PO SCH (21:00)
[2021-05-05] MEDS ORDERED: GLUCAGON FOR INJ 1 MG VIAL IM PRN (21:15)
[2021-05-05] MEDS ORDERED: DEXTROSE 50% 50 ML SYRINGE IV PRN (21:15)
[2021-05-05] MEDS ORDERED: CARBOHYDRATES FOR HYPOGLYCEMIA PO PRN (21:15)
[2021-05-05] MEDS ORDERED: GLUCOSE 40% GEL 15 GM TUBE PO PRN (21:15)
[2021-05-05] MEDS ORDERED: GLUCOSE 10 TABS/TUBE PO PRN (21:15)
[2021-05-05] MEDS ORDERED: INSULIN DETEMIR FLEXPEN/FLEX TOUCH 100 UNITS/ML 3ML SC ONE (21:30)
[2021-05-05] MEDS: INSULIN ASPART PER UNIT SC SCH (22:28)
[2021-05-05] MEDS: LACTATED RINGER'S 1,000 ML IV SCH (22:29)
[2021-05-05] MEDS: GABAPENTIN 300 MG CAP PO SCH (22:34)
[2021-05-05] MEDS: SERTRALINE HCL 100 MG TABLET PO SCH (22:34)
[2021-05-05] MEDS: DOCUSATE SODIUM 100 MG CAP PO SCH (22:34)
[2021-05-05] MEDS: PIPERACILLIN/TAZOBACTAM 4.5 GM in DEXTROSE 5% 100 ML IV SCH (23:59)
[2021-05-06] MEDS ORDERED: FLUARIX QUADRIVALENT 0.5 ML SYR IM ONE (01:38)
[2021-05-06] MEDS ORDERED: INSULIN ASPART PER UNIT SC SCH (02:00)
[2021-05-06 07:00] LABS: Basophils # (auto) 0.02 K/uL (0-0.2); Basophils % (auto) 0.2 %; Eosinophils # (auto) 0.16 K/uL (0-0.5); Eosinophils % (auto) 1.6 %; Hematocrit (blood only) 33.2 % (42-52); Hemoglobin 10.3 g/dL (14.0-18.0); Immature Granulocytes # (auto) 0.03 K/uL (0.00-0.02); Immature Granulocytes % (auto) 0.3 %; Lymphocytes % (auto) 15.3 %; Mean Corpuscular Hemoglobin 25.9 pg (25-34); Mean Corpuscular Volume 83.4 fL (80-100); Mean Platelet Volume 11.1 fL (7.4-10.4); Monocytes % (auto) 11.2 %; Neutrophils # (auto) 7.01 K/uL (1.4-6.5); Neutrophils % (auto) 71.4 %; Platelet Count 241 K/uL (130-400); RDW Standard Deviation 46.4 fL (36.4-46.3); Red Blood Count 3.98 M/uL (4.7-6.1); White Blood Count 9.82 K/uL (4.8-10.8)
[2021-05-06 07:36] LABS: BUN Creatinine Ratio 21.3 (10-20); Calcium 8.5 mg/dl (8.5-10.1); Creatinine Clr Calc Pharmacy 60.1 ml/min; Est GFR (Non-African American) 49.2 ml/min; Potassium 4.7 mmol/L (3.5-5.1)
[2021-05-06 07:46] LABS: Estimated Average Glucose 143 mg/dl; Hemoglobin A1C 6.6 % (4.5-5.6)
[2021-05-06] MEDS: LACTATED RINGER'S 1,000 ML IV SCH ×2 (08:03→16:37)
[2021-05-06] MEDS: PIPERACILLIN/TAZOBACTAM 4.5 GM in DEXTROSE 5% 100 ML IV SCH ×3 (08:17→22:55)
[2021-05-06] MEDS: TAMSULOSIN HCL 0.4 MG CAP PO SCH (08:18)
[2021-05-06] MEDS: DOCUSATE SODIUM 100 MG CAP PO SCH ×2 (08:18→20:47)
[2021-05-06] MEDS: PANTOprazole 40 MG TAB PO SCH (08:18)
[2021-05-06] MEDS: amLODIPine BESYLATE 5 MG TAB PO SCH (08:18)
[2021-05-06] MEDS: GABAPENTIN 300 MG CAP PO SCH ×3 (08:18→20:48)
[2021-05-06] MEDS: POLYETHYLENE (MIRALAX) 17 GM PACK PO SCH (08:18)
[2021-05-06] MEDS: SENNA 8.6 MG TAB PO SCH (08:18)
[2021-05-06] MEDS: SERTRALINE HCL 100 MG TABLET PO SCH ×2 (08:18→20:48)
--- NOTE | 2021-05-06 08:40 | Orthopedic Consultation ---
Date of Consultation May 06, 2021 Assessment & Plan (1) Toe osteomyelitis, left: 61-year-old male with left great toe wound and suspected osteomyelitis Pain control Continue IV antibiotics Elevate left lower extremity Plan for left foot MRI DVT prophylaxis per primary team Pending results of MRI we will discuss further care with foot and ankle team History of Present Illness Attending Physician: Bernardo Small History of Present Illness 61-year-old male presenting with wounds overlying his left great toe he reports that he has had wounds over his toe for approximately 1 month he has been trying to treat it with peroxide and local wound care he has not been on any antibiotic therapy prior to arriving at the hospital. Radiographs were obtained demon strating some lucency within the left great toe distal phalanx. Orthopedics was consulted for concern for osteomyelitis he is currently on antibiotic therapy no advanced imaging has been obtained at this time. Allergies Allergy/AdvReac Type Severity Reaction Status Date / Time No Known Allergies Allergy Verified 05/05/21 17:31 Home Medications Medication Instructions Recorded Confirmed Type metformin 1,000 mg tablet 1,000 mg PO BID 06/24/18 05/05/21 History glipizide 5 mg tablet, extended 5 mg PO QAM 04/28/20 05/05/21 History release 24 hr omeprazole 20 mg capsule,delayed 20 mg PO QAM 04/28/20 05/05/21 History release sertraline 100 mg tablet 100 mg PO BID 04/28/20 05/05/21 History simvastatin 40 mg tablet 40 mg PO QPM 04/28/20 05/05/21 History tamsulosin 0.4 mg capsule 0.4 mg PO QAM 04/28/20 05/05/21 History amlodipine 5 mg tablet 5 mg PO QAM 07/23/20 05/05/21 History multivitamin 1 tab PO QAM 07/23/20 05/05/21 History cyclobenzaprine 5 mg tablet 5 mg PO TID PRN 05/05/21 05/05/21 History docusate sodium 100 mg capsule 100 mg PO BID 05/05/21 05/05/21 History gabapentin 300 mg capsule 300 mg PO TID 05/05/21 05/05/21 History insulin aspart U-100 100 unit/mL 1 sliding scale dose SUBCUT 05/05/21 05/05/21 History subcutaneous solution USEASDIRECTD insulin glargine 100 unit/mL 60 unit SUBCUT BID 05/05/21 05/05/21 History subcutaneous solution lidocaine 4 % topical patch 1 patch TOPICAL DAILY PRN 05/05/21 05/05/21 History lisinopril 2.5 mg tablet 2.5 mg PO DAILY 05/05/21 05/05/21 History polyethylene glycol 3350 17 17 g PO DAILY 05/05/21 05/05/21 History gram/dose oral powder (Miralax) sennosides 8.6 mg tablet (Senokot) 8.6 mg PO DAILY 05/05/21 05/05/21 History Patient History Medical History BPH (benign prostatic hyperplasia) Chronic back pain Chronic kidney disease COPD (chronic obstructive pulmonary disease) COVID-19 virus detected 04/2020 +, n/v, diarrhea Depression DM type 2 (diabetes mellitus, type 2) GERD (gastroesophageal reflux disease) History of pulmonary embolism when hospitalized for bacteremia and OM, 7 years ago, [facility] Hyperkalemia hx, recent admission Hyperlipidemia Hypertension MRSA bacteremia "spine" Neuropathy of both feet Obesity Osteoarthritis Rheumatoid arthritis Tobacco abuse Surgical History History of left hip replacement History of removal of cyst chin, 40 years ago History of right hip replacement History of shoulder surgery Right x 2 Family History Father Diabetes Lung disease emphysema Mother Hypertension Denies family history of Heart disease Social History Smoking Status: Never smoker Tobacco Type: Smokeless Tobacco (Dip or Chew) Cigarettes Per Day: 25-30pack history; Second Hand Exposure: No; Do You Dip or Chew Tobacco: Yes; Hx Alcohol Use: Yes Alcohol type: beer Alcohol Intake Frequency Comment: 4 beers a week Hx Substance Use: No Preferred Language: Kiswahili Communication Ability: Effective Patent Prosecution Attorney Required: No Beliefs That Will Affect Care: None marital status: Current Living Situation: Alone current occupational status: disabled Other Information That Helps Us Care for You: No Feels Safe at Home: Yes Safety Concerns: Feels Safe At This Time Assistive Devices: None Physical Exam Constitutional: No acute distress, alert and oriented to person place and time Musculoskeletal: Left lower extremity -Sensation grossly intact but diminished in stocking-like distribution -There is wound and ulceration and edema overlying the great toe with mild drainage -Palpable dorsalis pedis and posterior tibial pulses -Fires TA/EHL/GSC Results & Data ([facility]) Vital Signs (Past 12 Hours) Vital Signs Temp Pulse Resp BP Pulse Ox 05/06/21 08:06 36.9 C 72 18 125/77 90 05/05/21 23:50 36.9 C 86 22 164/74 H 94 05/05/21 23:13 79 24 129/57 L 93
[2021-05-06] MEDS ORDERED: GADOBUTROL 65ML VIAL IV ONE (10:08)
[2021-05-06] MEDS: INSULIN ASPART PER UNIT SC SCH ×4 (10:51→20:45)
--- NOTE | 2021-05-06 11:10 | Magnetic Resonance Report ---
MR foot LT wo/w con HISTORY: 61 years-old Male left great toe osteomyelitis acute pain and swelling of the left great to e with possible osteomyelitis. Known soft tissue ulcer with reported drainage COMPARISON: Left foot radiographs 05/05/2021 TECHNIQUE: Multiplanar multisequence MRI of the left foot was obtained both with and without the use of 10.5 cc Gadavist FINDINGS: Motion degraded exam. Susceptibility artifact from subcutaneous and deep tissue air with the first di git limits evaluation of the adjacent tissues. Additionally, there is moderate subcutaneous and deep tissue edema with associated enhancement involving the first digit, most pronounced dorsally. Dorsal prominent subcutaneous edema tracks into the foot and ankle. No fluid collection to suggest abscess. Soft tissue ulcer of the great toe.. Extensive marrow edema involving the first proximal phalanx with correspondingly areas of decreased T1 marrow signal. Subtle osseous erosions are better seen on the comparison radiographs. Decreased T1 and T2 marrow signal involves the first proximal phalangeal head and first distal phalanx. There is moderate multifocal osteoarthritis. Hallux valgus with bunion formation of the first metatar rakan head. Marginal erosions with sclerotic margins involves the first metatarsal head with associated soft tissue thickening of the joint capsule. The visualized flexor and extensor tendons appear intac t. The Lisfranc ligament is identified and appears intact. IMPRESSION: 1. Cellulitis and soft tissue ulcer of the great toe without abscess. Associated deep tissue air rede monstrated suggestive of gas forming organism. 2. Acute osteomyelitis of the first proximal phalanx. 3. Decreased T1 and T2 marrow signal of the first proximal phalangeal head and distal phalanx is comp atible with osteonecrosis. This is likely secondary to bone devitalization from osteomyelitis. 4. Gout arthropathy of the first metatarsal head. ACT 112: Negative or not required by law. The above report was generated using voice recognition software. It may contain grammatical, syntax o r spelling errors. Electronically signed by: Jung Field M.D. 05/06/2021 11:09 AM
--- NOTE | 2021-05-06 14:33 | Pharmacy Report ---
Pharmacy Glycemic Short Note 2 - Date of Service May 06, 2021 - Glycemic Short BSG Results (Last 24 hours): 05/05/21 05/05/21 05/06/21 22:26 Unknown 02:18 Glucose 202 H POC Glucose 96 80 05/06/21 05/06/21 05/06/21 06:25 08:14 11:51 Glucose 171 H POC Glucose 122 H 101 H OUTPATIENT ANTIDIABETIC REGIMEN: * Levemir 64 units BID * Novolog units with meals * metformin * glipizide ASSESSMENT: * Mr Cabrera is a 61 y/o M with a PMH of T2DM well controlled on insulin and two oral agents who presents with osteomyelitis. * Patient's BSGs yesterday were 202 mg/dL on admission and then 96 mg/dL at HS. * Patient received 84 units of basal insulin yesterday. * Fasting BSG was 122 mg/dL. Patient was NPO this morning so no additional basal given. * Based upon previous admissions, patient requires much less insulin inhouse. During last admission, patient received a basal rate of 75 units and was 85 mg/dL the next day. * Will aim for about 50-60 units of basal for right now since patient's BSGs were trending downwards today. 50 units presents a 25% reduction from last admission and a 50% reduction from home regimen of 180 units/day. * Novolog weight-based stress of 2 (also corresponded to Novolog utilized during last admission). PLAN FOR INPATIENT GLYCEMIC CONTROL: * Hold outpatient oral diabetes medications * Basal insulin * Lantus 50-60 units SQ HS (Lantus 50 units if BSG < 180 mg/dL; Lantus 60 units if BSG >/= 180 mg/dL) * Bolus insulin * NovoLog per scale ACHS or Q6hrs while NPO * Goal Range: Low 110 mg/dL - High 140 mg/dL * Correction Factor: 20 mg/dL/unit * Nutritional / Prandial insulin per carb ratio of 1 unit per 6 grams CHO consumed PLAN FOR DISCHARGE: * Patient's HbA1C is below goal * currently HbA1C is 6.6% * goal HbA1C would be less than 7% * Recommend continuing home regimen as long as patient is not suffering from hypoglycemia at home.
[2021-05-06] MEDS: DAPTOmycin 550 MG in SYRINGE 0 ML IV SCH (17:15)
[2021-05-06] MEDS ORDERED: COLCHICINE 0.6 MG TAB PO ONE ×2 (18:12→22:00)
--- NOTE | 2021-05-06 19:16 | Hospitalist Progress Note ---
Date of Service May 06, 2021 Assessment & Plan (1) Osteomyelitis: Plan: Left 1st toe phalanx osteomyelitis Cont Daptomycin + Zosyn Appreciate ortho consult MRI foot findings confirmed osteo Follow up wound and blood cultures ESR 55, CRP 18.4 on admission no evidence of arterial insufficiency on dopplers await final recs from ortho (amputation vs prolonged course of IV abx) (2) Acute kidney injury: Plan: improving bmp am lower fluid rate to 75cc/hr (3) History of pulmonary embolism: Plan: doppler LLE neg for DVT (4) Rheumatoid arthritis: Plan: does not take meds for this remission? wrong dx? other? (5) COPD (chronic obstructive pulmonary disease): Plan: noted lungs clear today (6) GERD (gastroesophageal reflux disease): Plan: PPI (7) Hypertension: Plan: Continue amlodipine 5mg PO daily Hold JAYLIN (8) Depression: Plan: Cont SSRI (9) DM type 2 (diabetes mellitus, type 2): Plan: HbA1C 6.6% Pharmacy recs appreciated basal-bolus insulin (10) History of MRSA infection: Plan: spinal MRSA infection by report (11) Podagra: Plan: L 1st MTP joint. as seen on MRI and exam. colchicine now. then colchicine 3-4 hours later. then once daily starting in am. avoid steroids because of #1. avoid NSAIDs because of ARF. Admission and Anticipated Discharge Date Admission Date: May 05, 2021 Subjective patient's only complaint is that of left foot pain asks many questions about how to "avoid this again" does have pain over 1st MTP joint, L foot - in addition to the toe does have neuropathy does not have diabetic shoes Review of Systems Review of Systems: gen - no fevers/chills; eating fair/good cv - no cp pulm - no dyspnea GI - no diarrhea Physical Exam Physical Exam: gen - obese, NAD neck - no JVD mouth - MMM heart - RRR, s1 s2 lungs - CTA b/l abd - soft NT ND BS+ ext - cap refill < 2 sec b/l feet; no edema musculo - left 1st toe covered in dressings; not removed; L first MTP joint tender and swollen to palpation Results & Data Results & Data ([facility]) Vital Signs (Past 12 Hours) Vital Signs Temp Pulse Resp BP Pulse Ox 05/06/21 18:05 36.7 C 73 16 120/73 97 05/06/21 15:39 37.0 C 64 18 152/77 H 94 05/06/21 08:06 36.9 C 72 18 125/77 90 Laboratory Results Laboratory Results - last 24 hr 05/05/21 05/06/21 05/06/21 22:26 02:18 06:25 WBC 9.82 RBC 3.98 L Hgb 10.3 L Hct 33.2 L MCV 83.4 MCH 25.9 MCHC 31.0 L RDW Std Deviation 46.4 H RDW Coeff of Purvi 15.0 H Plt Count 241 MPV 11.1 H Immature Gran % (Auto) 0.3 Neut % (Auto) 71.4 Lymph % (Auto) 15.3 Centre % (Auto) 11.2 Eos % (Auto) 1.6 Baso % (Auto) 0.2 Neut # (Auto) 7.01 H Lymph # (Auto) 1.50 Centre # (Auto) 1.10 H Eos # (Auto) 0.16 Baso # (Auto) 0.02 Immature Gran # (Auto) 0.03 H Sodium Potassium Chloride Carbon Dioxide Anion Gap BUN Creatinine Est Cr Clr Drug Dosing Est GFR ( Amer) Est GFR (Non-Af Amer) BUN/Creatinine Ratio Glucose POC Glucose 96 80 Estimat Average Glucose Hemoglobin A1c Calcium 05/06/21 05/06/21 05/06/21 06:25 06:25 08:14 WBC RBC Hgb Hct MCV MCH MCHC RDW Std Deviation RDW Coeff of Purvi Plt Count MPV Immature Gran % (Auto) Neut % (Auto) Lymph % (Auto) Centre % (Auto) Eos % (Auto) Baso % (Auto) Neut # (Auto) Lymph # (Auto) Centre # (Auto) Eos # (Auto) Baso # (Auto) Immature Gran # (Auto) Sodium 137 Potassium 4.7 Chloride 111 H Carbon Dioxide 20 L Anion Gap 6.0 BUN 32 H Creatinine 1.50 H D Est Cr Clr Drug Dosing 60.1 Est GFR ( Amer) 57.0 Est GFR (Non-Af Amer) 49.2 BUN/Creatinine Ratio 21.3 H Glucose 171 H POC Glucose 122 H Estimat Average Glucose 143 Hemoglobin A1c 6.6 H Calcium 8.5 05/06/21 05/06/21 11:51 17:08 WBC RBC Hgb Hct MCV MCH MCHC RDW Std Deviation RDW Coeff of Purvi Plt Count MPV Immature Gran % (Auto) Neut % (Auto) Lymph % (Auto) Centre % (Auto) Eos % (Auto) Baso % (Auto) Neut # (Auto) Lymph # (Auto) Centre # (Auto) Eos # (Auto) Baso # (Auto) Immature Gran # (Auto) Sodium Potassium Chloride Carbon Dioxide Anion Gap BUN Creatinine Est Cr Clr Drug Dosing Est GFR ( Amer) Est GFR (Non-Af Amer) BUN/Creatinine Ratio Glucose POC Glucose 101 H 156 H Estimat Average Glucose Hemoglobin A1c Calcium Diagnostic Findings blood/wound cx's negative PG Care Time/CCT Total # of Minutes Spent Total Time Spent with Patient: Total time spent is greater than 50% in coordination of care (as documented) at patient's floor/unit and/or counseling patient: Coding Level of Care Code 09252 Subseq Hosp Care Lvl 3 Diagnoses Osteomyelitis M86.172 Laterality: left Osteomyelitis location: foot Osteomyelitis type: other acute Acute kidney injury N17.9 History of pulmonary embolism Z86.711 Rheumatoid arthritis M06.9 Laterality: unspecified laterality Rheumatoid factor presence: unspecified presence COPD (chronic obstructive pulmonary disease) J44.9 COPD type: unspecified COPD GERD (gastroesophageal reflux disease) K21.9 Esophagitis presence: esophagitis presence not specified Hypertension I10 Depression F32.9 Depression Type: unspecified DM type 2 (diabetes mellitus, type 2) E11.65; Z79.4 Diabetes mellitus complication status: with hyperglycemia 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 History of MRSA infection Z86.14 Podagra M10.9 (1) Rheumatoid arthritis Laterality: unspecified laterality Rheumatoid factor presence: unspecified presence (2) DM type 2 (diabetes mellitus, type 2) Diabetes mellitus complication status: with hyperglycemia Diabetes mellitus chcf insulin use: with chcf use Qualified Code(s): E11.65 - Type 2 diabetes mellitus with hyperglycemia; 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 (3) Depression Depression Type: unspecified Qualified Code(s): F32.9 - Major depressive disorder, single episode, unspecified (4) COPD (chronic obstructive pulmonary disease) COPD type: unspecified COPD Qualified Code(s): J44.9 - Chronic obstructive pulmonary disease, unspecified (5) GERD (gastroesophageal reflux disease) Esophagitis presence: esophagitis presence not specified Qualified Code(s): K21.9 - Gastro-esophageal reflux disease without esophagitis (6) Osteomyelitis Laterality: left Osteomyelitis location: foot Osteomyelitis type: other acute Qualified Code(s): M86.172 - Other acute osteomyelitis, left ankle and foot
[2021-05-06] MEDS: ACETAMINOPHEN 325 MG TAB PO PRN (19:38)
[2021-05-06] MEDS: INSULIN DETEMIR FLEXPEN/FLEX TOUCH 100 UNITS/ML 3ML SC SCH (20:40)
[2021-05-07] MEDS: LACTATED RINGER'S 1,000 ML IV SCH ×2 (02:59→15:07)
[2021-05-07] MEDS: ACETAMINOPHEN 325 MG TAB PO PRN ×2 (07:32→19:23)
[2021-05-07] MEDS: PANTOprazole 40 MG TAB PO SCH (08:49)
[2021-05-07] MEDS: amLODIPine BESYLATE 5 MG TAB PO SCH (08:49)
[2021-05-07] MEDS: POLYETHYLENE (MIRALAX) 17 GM PACK PO SCH ×2 (08:50→08:57)
[2021-05-07] MEDS: GABAPENTIN 300 MG CAP PO SCH ×3 (08:50→21:10)
[2021-05-07] MEDS: TAMSULOSIN HCL 0.4 MG CAP PO SCH (08:51)
[2021-05-07] MEDS: SERTRALINE HCL 100 MG TABLET PO SCH ×2 (08:51→21:10)
[2021-05-07] MEDS: SENNA 8.6 MG TAB PO SCH ×2 (08:51→08:56)
--- NOTE | 2021-05-07 08:51 | Orthopedic Progress Note ---
Date of Service May 07, 2021 Assessment & Plan (1) Toe osteomyelitis, left: Plan: 61 yo male with MRI confirmed osteomyelitis left great toe 1. Med management- cont IV abx 2. Discuss with Dr Villalpando/Dr Pérez as pt likely requires great toe amp Admission and Anticipated Discharge Date Admission Date: May 05, 2021 Subjective Pt resting in bed, some pain left foot Physical Exam Physical Exam: Dressing changed, diffuse ulceration dorsum of toe; smaller, localized ulceration plantar aspect, malodorous Results & Data ([facility]) Vital Signs (Past 12 Hours) Vital Signs Temp Pulse Resp BP Pulse Ox 05/07/21 06:00 36.7 C 71 16 155/86 H 96 05/06/21 22:53 36.9 C 74 16 104/61 91 Laboratory Results 05/07/21 05/06/21 05/06/21 Range/Units 07:59 20:38 17:08 POC Glucose 148 H 150 H 156 H (70-99) mg/dl 05/06/21 Range/Units 11:51 POC Glucose 101 H (70-99) mg/dl Foot MRI 05/06/21 08:40 MR foot LT wo/w con HISTORY: 61 years-old Male left great toe osteomyelitis acute pain and swelling of the left great toe with possible osteomyelitis. Known soft tissue ulcer with reported drainage COMPARISON: Left foot radiographs 05/05/2021 TECHNIQUE: Multiplanar multisequence MRI of the left foot was obtained both with and without the use of 10.5 cc Gadavist FINDINGS: Motion degraded exam. Susceptibility artifact from subcutaneous and deep tissue air with the first digit limits evaluation of the adjacent tissues. Additionally, there is moderate subcutaneous and deep tissue edema with associated enhancement involving the first digit, most pronounced dorsally. Dorsal prominent subcutaneous edema tracks into the foot and ankle. No fluid collection to suggest abscess. Soft tissue ulcer of the great toe.. Extensive marrow edema involving the first proximal phalanx with correspondingly areas of decreased T1 marrow signal. Subtle osseous erosions are better seen on the comparison radiographs. Decreased T1 and T2 marrow signal involves the first proximal phalangeal head and first distal phalanx. There is moderate multifocal osteoarthritis. Hallux valgus with bunion formation of the first metatarsal head. Marginal erosions with sclerotic margins involves the first metatarsal head with associated soft tissue thickening of the joint capsule. The visualized flexor and extensor tendons appear intact. The Lisfranc ligament is identified and appears intact. IMPRESSION: 1. Cellulitis and soft tissue ulcer of the great toe without abscess. Associated deep tissue air redemonstrated suggestive of gas forming organism. 2. Acute osteomyelitis of the first proximal phalanx. 3. Decreased T1 and T2 marrow signal of the first proximal phalangeal head and distal phalanx is compatible with osteonecrosis. This is likely secondary to bone devitalization from osteomyelitis. 4. Gout arthropathy of the first metatarsal head. ACT 112: Negative or not required by law. The above report was generated using voice recognition software. It may contain grammatical, syntax or spelling errors. Electronically signed by: Jung Field M.D. 05/06/2021 11:09 AM
[2021-05-07] MEDS: DOCUSATE SODIUM 100 MG CAP PO SCH ×3 (08:53→21:10)
[2021-05-07] MEDS: PIPERACILLIN/TAZOBACTAM 4.5 GM in DEXTROSE 5% 100 ML IV SCH ×2 (08:53→17:08)
[2021-05-07] MEDS: INSULIN ASPART PER UNIT SC SCH ×4 (09:21→21:09)
--- NOTE | 2021-05-07 09:42 | Communication Note ---
Date of Service: May 07, 2021 Will plan for left great toe amputation in AM. See full dictated noted
--- NOTE | 2021-05-07 09:53 | Progress Notes ---
SUBJECTIVE: The patient is seen at the bedside today. He notes continued pain in the left great toe . He states he has been doctoring with this for quite a while and has had a longstanding ulcer. OBJECTIVE: Left toe examination, toes does show moderate to significant swelling. Toe does show a d ysvascularity with sluggish capillary refill. There is an open wound, ulceration over the plantar as pect of the proximal phalanx. There is small amount of serous drainage. He has mild surrounding doris thema. He has a scab and eschar over the dorsal aspect of the toe as well. Review of MRI confirms osteomyelitis of the proximal phalanx and does show edematous changes distal t o that. ASSESSMENT: Diabetic left great toe infection. PLAN: I discussed findings and treatment with him. We discussed options of nonoperative treatment. We discussed options of a saucerization of osteomyelitis and debridement. We discussed options of a toe amputation. At this point in time, he would like to proceed with amputation. I do feel this is reasonable as I feel the toe was unlikely to be salvageable given the poor clinical appearance of the toe as well as extensive MRI findings. We will plan for surgical treatment in the morning with: 1. Left great toe amputation at metatarsophalangeal joint. Job ID: [id number]
[2021-05-07 11:20] LABS: BUN Creatinine Ratio 14.8 (10-20); Calcium 8.6 mg/dl (8.5-10.1); Creatinine Clr Calc Pharmacy 73.3 ml/min; Est GFR (African American) 72.5 ml/min; Est GFR (Non-African American) 62.5 ml/min; Potassium 4.7 mmol/L (3.5-5.1)
[2021-05-07 11:34] LABS: Beta-Hydroxybutyrate 0.73 mg/dl (0.2-2.81)
[2021-05-07] MEDS: DAPTOmycin 550 MG in SYRINGE 0 ML IV SCH (17:34)
[2021-05-07] MEDS ORDERED: COLCHICINE 0.6 MG TAB PO ONE (20:37)
--- NOTE | 2021-05-07 20:37 | Hospitalist Progress Note ---
Date of Service May 07, 2021 Assessment & Plan (1) Osteomyelitis: Plan: Left 1st toe phalanx osteomyelitis with cellulitis of toe & distal foot Cont Daptomycin + Zosyn Wound culture with GNR + staph - cont the above abx Appreciate ortho consult After much discussion patient has opted for amputation of the toe. This will occur tomorrow. NPO after MN for surgery tomorrow. (2) Acute kidney injury: Plan: resolved d/c IV fluids bmp am for stability (3) History of pulmonary embolism: Plan: doppler LLE neg for DVT (4) Rheumatoid arthritis: Plan: does not take meds for this remission? wrong dx? other? (5) COPD (chronic obstructive pulmonary disease): Plan: noted lungs clear today (6) GERD (gastroesophageal reflux disease): Plan: PPI (7) Hypertension: Plan: Continue amlodipine 5mg PO daily Continue to Hold JAYLIN (8) Depression: Plan: Cont SSRI (9) DM type 2 (diabetes mellitus, type 2): Plan: HbA1C 6.6% Pharmacy recs appreciated basal-bolus insulin (10) History of MRSA infection: Plan: spinal MRSA infection by report staph in foot easily could be MRSA - cont daptomycin (11) Podagra: Plan: L 1st MTP joint. as seen on MRI and exam. cont daily colchicine. avoid steroids because of #1. avoid NSAIDs because of ARF. Plan: phone call placed to family this evening Admission and Anticipated Discharge Date Admission Date: May 05, 2021 Subjective continues with L first MTP joint pain and L great toe pain MTP pain modestly better Great toe pain persists after considerable discussion w/ ortho this am and reviewing options for care he has elected to have amputation of the toe tomorrow Review of Systems Review of Systems: gen - no fevers or chills; eating well cv - no chest pain pulm - no cough/congestion/dyspnea GI - no diarrhea Physical Exam Physical Exam: gen - obese, NAD. Pleasant. neck - no JVD mouth - MMM heart - RRR, s1 s2, no murmur lungs - CTA b/l abd - soft NT ND BS+ ext - cap refill < 2 sec b/l feet; no edema musculo - left 1st toe - severely enlarged, purulent odor, distal tip a little dusky with devitalized tissue; ulceration present, drainage present. L first MTP joint - swollen, erythematous, tender to palpation. Dorsum of distal foot with mild erythema & swelling. Results & Data Results & Data ([facility]) Vital Signs (Past 12 Hours) Vital Signs Temp Pulse Resp BP Pulse Ox 05/07/21 15:01 36.9 C 71 18 144/76 H 95 Laboratory Results Laboratory Results - last 24 hr 05/06/21 05/07/21 05/07/21 20:38 07:59 10:23 Sodium 135 L Potassium 4.7 Chloride 107 Carbon Dioxide 22 Anion Gap 6.0 BUN 18 Creatinine 1.23 Est Cr Clr Drug Dosing 73.3 Est GFR ( Amer) 72.5 Est GFR (Non-Af Amer) 62.5 BUN/Creatinine Ratio 14.8 Glucose 346 H* POC Glucose 150 H 148 H Calcium 8.6 Beta-Hydroxybutyric Acd 0.73 05/07/21 05/07/21 11:55 17:00 Sodium Potassium Chloride Carbon Dioxide Anion Gap BUN Creatinine Est Cr Clr Drug Dosing Est GFR ( Amer) Est GFR (Non-Af Amer) BUN/Creatinine Ratio Glucose POC Glucose 257 H 152 H Calcium Beta-Hydroxybutyric Acd Diagnostic Findings wound cx L great toe - GNR + staph PG Care Time/CCT Total # of Minutes Spent Total Time Spent with Patient: Total time spent is greater than 50% in coordination of care (as documented) at patient's floor/unit and/or counseling patient: Coding Level of Care Code 07807 Subseq Hosp Care Lvl 2 Diagnoses Osteomyelitis M86.172 Laterality: left Osteomyelitis location: foot Osteomyelitis type: other acute Acute kidney injury N17.9 History of pulmonary embolism Z86.711 Rheumatoid arthritis M06.9 Laterality: unspecified laterality Rheumatoid factor presence: unspecified presence COPD (chronic obstructive pulmonary disease) J44.9 COPD type: unspecified COPD GERD (gastroesophageal reflux disease) K21.9 Esophagitis presence: esophagitis presence not specified Hypertension I10 Depression F32.9 Depression Type: unspecified DM type 2 (diabetes mellitus, type 2) E11.65; Z79.4 Diabetes mellitus complication status: with hyperglycemia 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 container terminal use History of MRSA infection Z86.14 Podagra M10.9 (1) Rheumatoid arthritis Laterality: unspecified laterality Rheumatoid factor presence: unspecified presence (2) DM type 2 (diabetes mellitus, type 2) Diabetes mellitus complication status: with hyperglycemia Diabetes mellitus [facility] insulin use: with superintendent container terminal use Qualified Code(s): E11.65 - Type 2 diabetes mellitus with hyperglycemia; 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 (3) Depression Depression Type: unspecified Qualified Code(s): F32.9 - Major depressive disorder, single episode, unspecified (4) COPD (chronic obstructive pulmonary disease) COPD type: unspecified COPD Qualified Code(s): J44.9 - Chronic obstructive pulmonary disease, unspecified (5) GERD (gastroesophageal reflux disease) Esophagitis presence: esophagitis presence not specified Qualified Code(s): K21.9 - Gastro-esophageal reflux disease without esophagitis (6) Osteomyelitis Laterality: left Osteomyelitis location: foot Osteomyelitis type: other acute Qualified Code(s): M86.172 - Other acute osteomyelitis, left ankle and foot
[2021-05-07] MEDS: INSULIN DETEMIR FLEXPEN/FLEX TOUCH 100 UNITS/ML 3ML SC SCH (21:09)
[2021-05-08] MEDS: PIPERACILLIN/TAZOBACTAM 4.5 GM in DEXTROSE 5% 100 ML IV SCH ×3 (00:03→16:57)
[2021-05-08] MEDS ORDERED: Nursing to Pharmacy Communication SCH ×2 (04:00→17:30)
[2021-05-08] MEDS: INSULIN ASPART PER UNIT SC SCH ×4 (06:20→20:52)
--- NOTE | 2021-05-08 08:58 | Anesthesiology Consultation ---
Date of Service May 08, 2021 Assessment & Plan (1) Encounter for pre-operative examination: Chart Review Chart Review: Acceptable Risk for Surgery and Patient NOT seen in Pre Admission Testing Consults Requested none History Surgery Operation Date: 05/08/21 11:00 Proposed Procedures p Amputation Toe - Romario Villalpando MD Height/Weight Height: 5 ft 8 in Weight: 105.5 kg Allergies Allergy/AdvReac Type Severity Reaction Status Date / Time No Known Allergies Allergy Verified 05/05/21 17:31 Medications Home Medications Medication Instructions Recorded Confirmed Last Taken metformin 1,000 mg tablet 1,000 mg PO BID 06/24/18 05/05/21 11/01/20 08:00 glipizide 5 mg tablet, extended 5 mg PO QAM 04/28/20 05/05/21 11/01/20 08:00 release 24 hr omeprazole 20 mg capsule,delayed 20 mg PO QAM 04/28/20 05/05/21 11/01/20 release sertraline 100 mg tablet 100 mg PO BID 04/28/20 05/05/21 11/01/20 08:00 simvastatin 40 mg tablet 40 mg PO QPM 04/28/20 05/05/21 10/31/20 tamsulosin 0.4 mg capsule 0.4 mg PO QAM 04/28/20 05/05/21 11/01/20 amlodipine 5 mg tablet 5 mg PO QAM 07/23/20 05/05/21 11/01/20 multivitamin 1 tab PO QAM 07/23/20 05/05/21 11/01/20 cyclobenzaprine 5 mg tablet 5 mg PO TID PRN 05/05/21 05/05/21 Unknown docusate sodium 100 mg capsule 100 mg PO BID 05/05/21 05/05/21 Unknown gabapentin 300 mg capsule 300 mg PO TID 05/05/21 05/05/21 Unknown insulin aspart U-100 100 unit/mL 1 sliding scale dose SUBCUT 05/05/21 05/05/21 Unknown subcutaneous solution USEASDIRECTD insulin glargine 100 unit/mL 60 unit SUBCUT BID 05/05/21 05/05/21 Unknown subcutaneous solution lidocaine 4 % topical patch 1 patch TOPICAL DAILY PRN 05/05/21 05/05/21 Unknown lisinopril 2.5 mg tablet 2.5 mg PO DAILY 05/05/21 05/05/21 Unknown polyethylene glycol 3350 17 17 g PO DAILY 05/05/21 05/05/21 Unknown gram/dose oral powder (Miralax) sennosides 8.6 mg tablet (Senokot) 8.6 mg PO DAILY 05/05/21 05/05/21 Unknown Active Medications Generic Name Dose Route Start Last Admin Trade Name Freq PRN Reason Stop Dose Admin Acetaminophen 650 mg 05/05/21 20:35 05/07/21 19:23 Acetaminophen 325 Mg Tab PO 06/04/21 20:34 650 mg Q4H PRN Administration pain/fever Amlodipine Besylate 5 mg 05/06/21 09:00 05/07/21 08:49 Amlodipine Besylate 5 Mg Tab PO 06/05/21 08:59 5 mg QAM CROW Administration Docusate Sodium 100 mg 05/05/21 21:00 05/07/21 21:10 Docusate Sodium 100 Mg Cap PO 06/04/21 20:59 Not Given BID CROW Gabapentin 300 mg 05/05/21 21:00 05/07/21 21:10 Gabapentin 300 Mg Cap PO 06/04/21 20:59 300 mg TID CROW Administration Piperacillin Sod/Tazobactam 120 mls @ 30 mls/hr 05/06/21 00:00 05/08/21 07:54 Sod 4.5 gm/ Dextrose IV 06/17/21 00:00 30 mls/hr Q8H CROW Administration Protocol Insulin Aspart 0 units 05/08/21 06:00 05/08/21 06:20 Insulin Aspart Per Unit SC 06/07/21 05:59 1 units Q6 CROW Administration Insulin Detemir 0 units 05/06/21 21:00 05/07/21 21:09 Insulin Detemir Flexpen/Flex Touch 100 Units/Ml 3ml SC 06/05/21 20:59 40 units HS CROW Administration Protocol Pantoprazole Sodium 40 mg 05/06/21 09:00 05/07/21 08:49 Pantoprazole 40 Mg Tab PO 06/05/21 08:59 40 mg QAM CROW Administration Protocol Polyethylene Glycol 17 gm 05/06/21 09:00 05/07/21 08:57 Polyethylene (Miralax) 17 Gm Pack PO 06/05/21 08:59 Not Given DAILY CROW Sennosides 8.6 mg 05/06/21 09:00 05/07/21 08:56 Senna 8.6 Mg Tab PO 06/05/21 08:59 Not Given DAILY CROW Sertraline HCl 100 mg 05/05/21 21:00 05/07/21 21:10 Sertraline Hcl 100 Mg Tablet PO 06/04/21 20:59 100 mg BID CROW Administration Tamsulosin HCl 0.4 mg 05/06/21 09:00 05/07/21 08:51 Tamsulosin Hcl 0.4 Mg Cap PO 06/05/21 08:59 0.4 mg QAM CROW Administration NPO Date Last Intake of Fluids: 05/07/21 Time Last Intake of Fluids: 23:59 Date Last Intake of Solids: 05/07/21 Time Last Intake of Solids: 23:59 Past Medical History Medical History BPH (benign prostatic hyperplasia) Chronic back pain Chronic kidney disease COPD (chronic obstructive pulmonary disease) COVID-19 virus detected 04/2020 +, n/v, diarrhea Depression DM type 2 (diabetes mellitus, type 2) GERD (gastroesophageal reflux disease) History of pulmonary embolism when hospitalized for bacteremia and OM, 7 years ago, [facility] Hyperkalemia hx, recent admission Hyperlipidemia Hypertension MRSA bacteremia "spine" Neuropathy of both feet Obesity Osteoarthritis Rheumatoid arthritis Tobacco abuse Past Family History Family History Father Diabetes Lung disease emphysema Mother Hypertension Denies family history of Heart disease Past Surgical History Surgical History History of left hip replacement History of removal of cyst chin, 40 years ago History of right hip replacement History of shoulder surgery Right x 2 Social History Smoking Status: Never smoker tobacco type: smokeless tobacco Smoking cigarettes per day: 25-30pack history Do You Dip or Chew Tobacco: Yes Hx Alcohol Use: Yes Alcohol type: beer alcohol intake frequency: holidays/special occasions only Hx Substance Use: No substance use type: does not use Physical Exam Vital Signs Last Vital Signs Temp 98.2 F 05/08/21 07:45 Pulse 70 05/08/21 07:45 Resp 16 05/08/21 07:45 BP 156/88 H 05/08/21 07:45 Pulse Ox 95 05/08/21 07:45 Testing Laboratory Results 05/06/21 06:25 05/07/21 10:23 Hemoglobin A1c 6.6 % (4.5-5.6) H 05/06/21 06:25 05/05/21 18:18 Gram Stain - Final Toe,Left Great Wound Culture - Preliminary Pseudomonas aeruginosa Staphylococcus aureus 05/05/21 17:33 Aerobic Blood Culture - Preliminary Blood No growth in Aerobic bottle after 48 hours. Anaerobic Blood Culture - Preliminary No growth in Anaerobic bottle after 48 hours. 05/05/21 17:32 Aerobic Blood Culture - Preliminary Blood No growth in Aerobic bottle after 48 hours. Anaerobic Blood Culture - Final 05/08/21 06:13 POC Glucose 151 H
[2021-05-08 09:25] LABS: BUN Creatinine Ratio 11.1 (10-20); Calcium 8.9 mg/dl (8.5-10.1); Creatinine Clr Calc Pharmacy 80.5 ml/min; Est GFR (African American) 81.2 ml/min; Magnesium 1.5 mg/dl (1.8-2.4); Potassium 4.4 mmol/L (3.5-5.1)
[2021-05-08] MEDS: amLODIPine BESYLATE 5 MG TAB PO SCH (09:44)
[2021-05-08] MEDS ORDERED: BUPIVACAINE 0.5 % 5 MG/1 ML MPF 30ML VIAL ONE (10:11)
[2021-05-08] MEDS ORDERED: ePHEDrine sulfate 50 MG/ML AMP IV PRN (11:01)
[2021-05-08] MEDS ORDERED: LABETALOL HCL IV 5 MG/ML 20ML IV PRN (11:01)
[2021-05-08] MEDS ORDERED: fentaNYL citrate 100 MCG/2 ML VIAL IV PRN (11:01)
[2021-05-08] MEDS ORDERED: ONDANSETRON INJ 2 MG/ML 2 ML VIAL IV PRN (11:01)
[2021-05-08] MEDS ORDERED: ATROPINE SULFATE 0.1 MG/ML 10ML SYR IV PRN (11:01)
--- NOTE | 2021-05-08 11:07 | History & Physical Bridge Note ---
Date of Service May 08, 2021 History & Physical Bridge Note I have examined the patient, reviewed the History & Physical and in the interval since the performance of the History & Physical I have noted the following changes of clinical significance: no changes noted will plan for left great toe amputation
[2021-05-08] MEDS ORDERED: ONDANSETRON INJ 2 MG/ML 2 ML VIAL ONE (11:10)
[2021-05-08] MEDS ORDERED: PROPOFOL IV EMULSION 10 MG/ML 20 ML VIAL IV ONE (11:10)
[2021-05-08] MEDS ORDERED: LIDOCAINE 2% 2 ML VIAL/AMP(20MG/ML) INFIL ONE (11:10)
[2021-05-08] MEDS ORDERED: MIDAZOLAM HCL 1 MG/ML 2ML VIAL ONE (11:11)
[2021-05-08] MEDS ORDERED: fentaNYL citrate 100 MCG/2 ML VIAL ONE (11:11)
[2021-05-08] MEDS ORDERED: ceFAZolin 2000MG 2,000 MG/15 ML SYR IV ONE (12:20)
--- NOTE | 2021-05-08 12:22 | Post Operative Brief Note ---
Immediate Post Op Note v1 Date of Surgery May 08, 2021 Pre & Post Diagnosis Operation Date: 05/08/21 11:00 Pre-Op Diagnosis: Gangrene left great toe, osteomyelitis left great toe Post-Op Diagnosis: Gangrene left great toe, osteomyelitis left great toe I identified the patient and participated in the time-out.: Yes Procedure Operation Date: 05/08/21 11:00 Actual Procedures p Left Great Toe amputation(Left) - Romario Villalpando MD Surgeon Romario Villalpando MD Gambreler bassam alcaraz PA-C Estimated Blood Loss 5 Findings Consistent with Post-Op Diagnosis gross infection, osteo, and gangrene
--- NOTE | 2021-05-08 12:23 | Pharmacy Report ---
Pharmacy Glycemic Short Note 2 - Date of Service May 08, 2021 - Glycemic Short BSG Results (Last 24 hours): 05/07/21 05/07/21 05/08/21 17:00 20:44 06:13 Glucose POC Glucose 152 H 155 H 151 H 05/08/21 08:32 Glucose 155 H POC Glucose OUTPATIENT ANTIDIABETIC REGIMEN: * Levemir 64 units BID * Novolog 16/18/18 units with meals * metformin * glipizide ASSESSMENT: 05/08 * Pt NPO last evening for surgery today (Left toe amputation). Basal insulin dose reduced 20% in anticipation of NPO status. * BSGs well controlled on regimen while taking full PO. Will resume previous dosing after surgery once PO intake reestablished. * Goal is to maintain BSGs <200 (ideally <150) to prevent post op complications on top of current infection. 05/06 * Mr Cabrera is a 61 y/o M with a PMH of T2DM well controlled on insulin and two oral agents who presents with osteomyelitis. * Patient's BSGs yesterday were 202 mg/dL on admission and then 96 mg/dL at HS. * Patient received 84 units of basal insulin yesterday. * Fasting BSG was 122 mg/dL. Patient was NPO this morning so no additional basal given. * Based upon previous admissions, patient requires much less insulin inhouse. During last admission, patient received a basal rate of 75 units and was 85 mg/dL the next day. * Will aim for about 50-60 units of basal for right now since patient's BSGs were trending downwards today. 50 units presents a 25% reduction from last admission and a 50% reduction from home regimen of 180 units/day. * Novolog weight-based stress of 2 (also corresponded to Novolog utilized during last admission). PLAN FOR INPATIENT GLYCEMIC CONTROL: * Hold outpatient oral diabetes medications * Basal insulin * Lantus 50-60 units SQ HS (Lantus 50 units if BSG < 180 mg/dL; Lantus 60 units if BSG >/= 180 mg/dL) * Bolus insulin * NovoLog per scale ACHS or Q6hrs while NPO * Goal Range: Low 110 mg/dL - High 140 mg/dL * Correction Factor: 15 mg/dL/unit * Nutritional / Prandial insulin per carb ratio of 1 unit per 5 grams CHO consumed PLAN FOR DISCHARGE: * Patient's HbA1C is below goal * currently HbA1C is 6.6% * goal HbA1C would be less than 7% * Recommend continuing home regimen as long as patient is not suffering from hypoglycemia at home. * A1c may be affected by BRIAN, anemia. Best to use outpatient BSGs to guide outpatient therapy.
--- NOTE | 2021-05-08 12:43 | Anesthesiology Progress Note ---
Date of Service May 08, 2021 Anesthesia Post Procedure Vital Signs Vital Signs: Temp Pulse Resp BP Pulse Ox 05/08/21 07:45 98.2 F 70 16 156/88 H 95 05/07/21 22:07 99.0 F 78 18 144/84 H 95 05/07/21 15:01 98.4 F 71 18 144/76 H 95 Pain Intensity Left Foot: Pain Intensity: 5 Transfer of Care Handoff Completed per policy Notes Mental Status: alert / awake / arousable and participated in evaluation Patient Amnestic to Procedure: Yes Nausea / Vomiting: adequately controlled Pain: adequately controlled Airway Patency, RR, SpO2: stable & adequate BP & HR: stable & adequate Hydration State: stable & adequate Anesthetic Complications: no major complications apparent and Pt Satisfied with anesthetic care
[2021-05-08] MEDS: PANTOprazole 40 MG TAB PO SCH (13:45)
[2021-05-08] MEDS: SERTRALINE HCL 100 MG TABLET PO SCH ×2 (13:45→20:54)
[2021-05-08] MEDS: GABAPENTIN 300 MG CAP PO SCH ×3 (13:45→20:54)
[2021-05-08] MEDS: TAMSULOSIN HCL 0.4 MG CAP PO SCH (13:45)
[2021-05-08] MEDS: SENNA 8.6 MG TAB PO SCH (13:45)
[2021-05-08] MEDS: MAGNESIUM SULFATE / D5W 1 GM/100 ML BAG IV SCH ×3 (13:46→15:07)
[2021-05-08] MEDS: POLYETHYLENE (MIRALAX) 17 GM PACK PO SCH ×2 (13:46→13:51)
[2021-05-08] MEDS: DOCUSATE SODIUM 100 MG CAP PO SCH ×2 (13:53→21:50)
--- NOTE | 2021-05-08 15:59 | Operative Report (OR) ---
PREOPERATIVE DIAGNOSES: 1. Left great toe osteomyelitis. 2. Left great toe diabetic infection. 3. Left great toe gangrene. POSTOPERATIVE DIAGNOSES: 1. Left great toe osteomyelitis. 2. Left great toe diabetic infection. 3. Left great toe gangrene. PROCEDURE: Left great toe amputation at metatarsophalangeal joint. SURGEON: Norman Villalpando MD. INDICATIONS: Mikael Herndon PA-C, who was necessary for prepping, draping, retraction, exposure, set up and closure. ANESTHESIA: General. FINDINGS: Significant gross pus in the region of the entire great toe. Toe showed gangrene. Bone sh owed osteomyelitis. There is decreased blood flow in the region of the amputation site. INDICATIONS: This gentleman has progressive gangrene in his toe. MRI documents osteomyelitis. He p resents with non-salvageable toe. He presents for amputation of MTP joint. DESCRIPTION OF PROCEDURE: I made elliptical incision over the toe. Patient had a sinus tract volarl y, which was fairly large. I excised this. Dissection was carried down through the skin and subcuta neous tissues. Dorsal veins were cauterized. I transected the extensor tendon, identified the MTP j oint. The toe was disarticulated at the MP joint and was passed off the table. There was a large am ount of gross purulence in the region of the proximal phalanx. This was irrigated. Toe was passed o ff the table. Toe did show gross gangrene at the tip and poor circulation. Traction neurectomies were performed. I transected the flexor tendon and allowed it to retract proxi kai. Incision was copiously irrigated with 1 liter of normal saline. Tourniquet was let down. He mostasis obtained with bipolar cautery. The patient had a small amount of bleeding in the area, whic h did show decreased capillary refill. Hemostasis was excellent. Skin was closed with asiya. We injected Marcaine local care at the conclusion of the procedure for pain relief. The patient was david chidi in a soft dressing and taken to PACU in stable condition. POSTOPERATIVE PLAN: Will be weightbearing as tolerated. We will remove asiya at approximately 3 we eks. Cultures were taken and we will adjust antibiotics as necessary. Job ID: [id number]
[2021-05-08] MEDS: HYDROCODONE/ACETAMINOPHEN 7.5/325MG TAB PO PRN ×2 (17:07→23:09)
[2021-05-08] MEDS ORDERED: INSULIN ASPART PER UNIT ONE (18:07)
--- NOTE | 2021-05-08 18:59 | Hospitalist Progress Note ---
Date of Service May 08, 2021 Assessment & Plan (1) Osteomyelitis: Plan: Left 1st toe phalanx osteomyelitis with cellulitis of toe & distal foot Wound culture with pansensitive pseudomonas + MSSA - stop daptomycin Cont zosyn Follow intra-op culture s/p L great toe amputation today by Dr Villalpando Op report reviewed - patient with evidence of gangrene of distal toe and copiouis pus Appreciate ortho assistance Added dilaudid IV + norco PO for pain Per ortho - WBAT (2) Gangrene of toe of left foot: Plan: noted during surgery today s/p amp of L great toe to the MTP joint (3) Acute kidney injury: Plan: resolved bmp am for stability (4) History of pulmonary embolism: Plan: doppler LLE neg for DVT add heparin 5000 TID starting in am (5) Rheumatoid arthritis: Plan: does not take meds for this remission? wrong dx? other? (6) COPD (chronic obstructive pulmonary disease): Plan: noted lungs clear today no symptoms (7) GERD (gastroesophageal reflux disease): Plan: PPI (8) Hypertension: Plan: Continue amlodipine 5mg PO daily Continue to Hold JAYLIN through at least tomorrow (9) Depression: Plan: Cont SSRI (10) DM type 2 (diabetes mellitus, type 2): Plan: HbA1C 6.6% Pharmacy recs appreciated basal-bolus insulin (11) History of MRSA infection: Plan: spinal MRSA infection by report wound cx of L great toe - MSSA only; d/c daptomycin (12) Podagra: Plan: L 1st MTP joint. as seen on MRI and exam. consider an NSAID at this point (13) Hypomagnesemia: Plan: 3 grams mag sulfate x 1 IV repeat mag level am Plan: son updated by phone this evening Admission and Anticipated Discharge Date Admission Date: May 05, 2021 Subjective saw post-op from his L great toe amputation he complained of significant pain from his surgery - low-dose IV dilaudid and PO norco ordered for him since the surgery he has been able to take full PO diet, no chest pain, no dyspnea no pain in any other location except the left foot Review of Systems Review of Systems: gen - no fevers or chills cv - no chest pain pulm - no cough, no congestion, no dyspnea GI - no N/V/abd pain Physical Exam Physical Exam: gen - obese, uncomfortable due to left foot pain; but awake/alert x 3 neck - no JVD mouth - MMM heart - RRR, s1 s2, no murmur lungs - CTA b/l abd - soft NT ND BS+ ext - no edema, left foot/ankle in large dressings (not removed); pulses b/l feet 2+ Results & Data Results & Data ([facility]) Vital Signs (Past 12 Hours) Vital Signs Temp Pulse Pulse Resp BP Pulse Ox 05/08/21 14:58 36.8 C 71 16 131/77 94 05/08/21 14:08 36.8 C 70 16 129/77 96 05/08/21 13:15 36.8 C 70 18 128/71 94 05/08/21 12:50 36.4 C L 68 19 129/70 99 05/08/21 12:40 70 15 150/78 H 93 05/08/21 12:31 36.3 C L 76 18 155/84 H 96 05/08/21 07:45 36.8 C 70 16 156/88 H 95 Laboratory Results Laboratory Results - last 24 hr 05/07/21 05/08/21 05/08/21 20:44 06:13 08:32 Sodium 137 Potassium 4.4 Chloride 106 Carbon Dioxide 25 Anion Gap 6.0 BUN 12 Creatinine 1.12 Est Cr Clr Drug Dosing 80.5 Est GFR ( Amer) 81.2 Est GFR (Non-Af Amer) 70.0 BUN/Creatinine Ratio 11.1 Glucose 155 H POC Glucose 155 H 151 H Calcium 8.9 Magnesium 1.5 L 05/08/21 05/08/21 05/08/21 12:32 13:17 17:07 Sodium Potassium Chloride Carbon Dioxide Anion Gap BUN Creatinine Est Cr Clr Drug Dosing Est GFR ( Amer) Est GFR (Non-Af Amer) BUN/Creatinine Ratio Glucose POC Glucose 154 H 190 H 213 H Calcium Magnesium Diagnostic Findings wound culture L great toe - pansensitive pseudomonas; MSSA blood cultures negative PG Care Time/CCT Total # of Minutes Spent Total Time Spent with Patient: Total time spent is greater than 50% in coordination of care (as documented) at patient's floor/unit and/or counseling patient: Coding Level of Care Code 75755 Subseq Hosp Care Lvl 2 Diagnoses Osteomyelitis M86.172 Laterality: left Osteomyelitis location: foot Osteomyelitis type: other acute Acute kidney injury N17.9 History of pulmonary embolism Z86.711 Rheumatoid arthritis M06.9 Laterality: unspecified laterality Rheumatoid factor presence: unspecified presence COPD (chronic obstructive pulmonary disease) J44.9 COPD type: unspecified COPD GERD (gastroesophageal reflux disease) K21.9 Esophagitis presence: esophagitis presence not specified Hypertension I10 Depression F32.9 Depression Type: unspecified DM type 2 (diabetes mellitus, type 2) E11.65; Z79.4 Diabetes mellitus complication status: with hyperglycemia Diabetes mellitus termite exterminator helper insulin use: with skilled nursing use History of MRSA infection Z86.14 Podagra M10.9 Gangrene of toe of left foot I96 Hypomagnesemia E83.42 (1) Rheumatoid arthritis Laterality: unspecified laterality Rheumatoid factor presence: unspecified presence (2) DM type 2 (diabetes mellitus, type 2) Diabetes mellitus complication status: with hyperglycemia Diabetes mellitus termite exterminator helper insulin use: with skilled nursing use Qualified Code(s): E11.65 - Type 2 diabetes mellitus with hyperglycemia; Z79.4 - group home (current) use of insulin (3) Depression Depression Type: unspecified Qualified Code(s): F32.9 - Major depressive disorder, single episode, unspecified (4) COPD (chronic obstructive pulmonary disease) COPD type: unspecified COPD Qualified Code(s): J44.9 - Chronic obstructive pulmonary disease, unspecified (5) GERD (gastroesophageal reflux disease) Esophagitis presence: esophagitis presence not specified Qualified Code(s): K21.9 - Gastro-esophageal reflux disease without esophagitis (6) Osteomyelitis Laterality: left Osteomyelitis location: foot Osteomyelitis type: other acute Qualified Code(s): M86.172 - Other acute osteomyelitis, left ankle and foot
[2021-05-08] MEDS: HYDROmorphone INJ 0.5 MG/0.5 ML SYR IV PRN (19:18)
[2021-05-08] MEDS ORDERED: IBUPROFEN 200 MG TAB PO STA (20:47)
[2021-05-08] MEDS: INSULIN DETEMIR FLEXPEN/FLEX TOUCH 100 UNITS/ML 3ML SC SCH (20:53)
[2021-05-08] MEDS: ACETAMINOPHEN 325 MG TAB PO PRN (20:53)
[2021-05-09] MEDS: PIPERACILLIN/TAZOBACTAM 4.5 GM in DEXTROSE 5% 100 ML IV SCH ×3 (00:54→15:28)
[2021-05-09] MEDS: HYDROmorphone INJ 0.5 MG/0.5 ML SYR IV PRN ×4 (03:55→21:11)
[2021-05-09 08:03] LABS: Hematocrit (blood only) 39.4 % (42-52); Hemoglobin 12.4 g/dL (14.0-18.0); Mean Corpuscular Hemoglobin 26.3 pg (25-34); Mean Corpuscular Hgb Conc 31.5 g/dL (32-36); Mean Corpuscular Volume 83.7 fL (80-100); Mean Platelet Volume 11.3 fL (7.4-10.4); Platelet Count 300 K/uL (130-400); RDW Coefficient of Variation 14.5 % (11.5-14.5); RDW Standard Deviation 44.7 fL (36.4-46.3); Red Blood Count 4.71 M/uL (4.7-6.1); White Blood Count 9.51 K/uL (4.8-10.8)
[2021-05-09 08:37] LABS: BUN Creatinine Ratio 11.4 (10-20); Calcium 9.1 mg/dl (8.5-10.1); Creatinine Clr Calc Pharmacy 72.1 ml/min; Est GFR (African American) 71.1 ml/min; Est GFR (Non-African American) 61.3 ml/min; Potassium 4.6 mmol/L (3.5-5.1)
[2021-05-09] MEDS: SERTRALINE HCL 100 MG TABLET PO SCH ×2 (08:54→21:01)
[2021-05-09] MEDS: PANTOprazole 40 MG TAB PO SCH (08:55)
[2021-05-09] MEDS: GABAPENTIN 300 MG CAP PO SCH ×3 (08:55→21:01)
[2021-05-09] MEDS: amLODIPine BESYLATE 5 MG TAB PO SCH (08:55)
[2021-05-09] MEDS: TAMSULOSIN HCL 0.4 MG CAP PO SCH (08:55)
[2021-05-09] MEDS: SENNA 8.6 MG TAB PO SCH (08:55)
[2021-05-09] MEDS: DOCUSATE SODIUM 100 MG CAP PO SCH ×2 (08:56→21:04)
[2021-05-09] MEDS: POLYETHYLENE (MIRALAX) 17 GM PACK PO SCH (08:57)
--- NOTE | 2021-05-09 08:58 | Progress Notes ---
SUBJECTIVE: The patient was seen at bedside today. He notes appropriate amount of pain in the left toe. Denies other complaints. No fevers or chills. PHYSICAL EXAMINATION: The left upper extremity exam, dressings clean and dry. No significant bleedi ng or drainage. Calf is soft. No ascending erythema. ASSESSMENT: Postoperative day 1, status post left great toe amputation. PLAN: At this point in time, doing well. Recommendation is continue antibiotics as per hospitalist. No further surgical indication at this point in time, we will allow his wound to heal. Other incidental findings were significant gouty tophi at the MTP joint. We will change dressing tomorrow and follow wound clinically. He should follow up with Renita Sargent PA-C in approximately 3 weeks for staple removal after disch arge from hospital. Job ID: [id number]
[2021-05-09] MEDS: INSULIN ASPART PER UNIT SC SCH ×4 (09:17→21:05)
[2021-05-09] MEDS: HYDROCODONE/ACETAMINOPHEN 7.5/325MG TAB PO PRN (10:53)
[2021-05-09] MEDS: ACETAMINOPHEN 325 MG TAB PO PRN (13:20)
--- NOTE | 2021-05-09 19:09 | Hospitalist Progress Note ---
Date of Service May 09, 2021 Assessment & Plan (1) Osteomyelitis: Plan: Left 1st toe phalanx osteomyelitis with cellulitis/gangrene of toe, and mild cellulitis of the dorsum of distal foot POD #1 - s/p left great toe amputation Wound culture from admission with pansensitive pseudomonas + MSSA Intra-op wound cx growing staph species - likely to be the MSSA Cont zosyn Follow intra-op culture Appreciate ortho assistance Cont dilaudid IV prn pain Increase norco to 10mg po q6h prn pain Per ortho - WBAT with surgical shoe in place on LLE (2) Gangrene of toe of left foot: Plan: noted during surgery yesterday POD #1 s/p amp of L great toe to the MTP joint (3) Acute kidney injury: Plan: resolved bmp remains stable (4) History of pulmonary embolism: Plan: doppler LLE neg for DVT start heparin 5000 TID (5) Rheumatoid arthritis: Plan: does not take meds for this in remission? wrong dx? other? (6) COPD (chronic obstructive pulmonary disease): Plan: h/o such lungs remain clear and without any pulmonary sx's (7) GERD (gastroesophageal reflux disease): Plan: PPI (8) Hypertension: Plan: Continue amlodipine 5mg PO daily Resume JAYLIN (9) Depression: Plan: Cont SSRI (10) DM type 2 (diabetes mellitus, type 2): Plan: HbA1C 6.6% Pharmacy recs appreciated cont basal-bolus insulin (11) History of MRSA infection: Plan: spinal MRSA infection by report wound cx of L great toe - MSSA only; MRSA coverage with daptomycin was d/c over the weekend (12) Podagra: Plan: L 1st MTP joint. as seen on MRI and exam. consider an NSAID while hospitalized he previously took allopurinol years ago would not start right now but consider resuming as outpatient (13) Hypomagnesemia: Plan: repleted yesterday; now resolved Plan: son updated by phone this evening as well as yesterday plan of care discussed obtain PT/OT sada progressing Admission and Anticipated Discharge Date Admission Date: May 05, 2021 Subjective patient's only complaint is that of left foot operative pain the 7.5mg norco doesn't help the IV dilaudid is helpful eating well feels good otherwise we had lengthy discussion today about importance of establishing care with a returns supervisor for regular foot checks, fitting for diabetic shoes, etc he is very agreeable to this Review of Systems Review of Systems: gen - no fevers, no chills CV - no cp, no orthopnea pulm - no cough, no congestion, no MCNAIR GI - no abd pain or diarrhea Physical Exam Physical Exam: gen - obese, NAD neck - no JVD mouth - MMM heart - RRR, s1 s2, no murmur lungs - CTA b/l abd - soft NT ND BS+ ext - no edema, left foot/ankle in large dressings (not removed); pulses b/l feet 2+ psych - a/o x3 Results & Data Results & Data ([facility]) Vital Signs (Past 12 Hours) Vital Signs Temp Pulse Pulse Resp BP Pulse Ox 05/09/21 15:09 36.9 C 77 16 158/77 H 97 05/09/21 07:48 37.1 C 69 16 150/83 H 95 Laboratory Results Laboratory Results - last 24 hr 05/08/21 05/09/21 05/09/21 20:38 07:35 07:35 WBC 9.51 RBC 4.71 Hgb 12.4 L Hct 39.4 L MCV 83.7 MCH 26.3 MCHC 31.5 L RDW Std Deviation 44.7 RDW Coeff of Purvi 14.5 Plt Count 300 MPV 11.3 H Sodium 137 Potassium 4.6 Chloride 105 Carbon Dioxide 26 Anion Gap 6.0 BUN 14 Creatinine 1.25 Est Cr Clr Drug Dosing 72.1 Est GFR ( Amer) 71.1 Est GFR (Non-Af Amer) 61.3 BUN/Creatinine Ratio 11.4 Glucose 154 H POC Glucose 182 H Calcium 9.1 Magnesium 2.0 05/09/21 05/09/21 05/09/21 08:05 11:58 17:09 WBC RBC Hgb Hct MCV MCH MCHC RDW Std Deviation RDW Coeff of Purvi Plt Count MPV Sodium Potassium Chloride Carbon Dioxide Anion Gap BUN Creatinine Est Cr Clr Drug Dosing Est GFR ( Amer) Est GFR (Non-Af Amer) BUN/Creatinine Ratio Glucose POC Glucose 138 H 269 H 168 H Calcium Magnesium Diagnostic Findings intra-op wound cx - staph species PG Care Time/CCT Total # of Minutes Spent Total Time Spent with Patient: Total time spent is greater than 50% in coordination of care (as documented) at patient's floor/unit and/or counseling patient: Coding Level of Care Code 52122 Subseq Hosp Care Lvl 2 Diagnoses Osteomyelitis M86.172 Laterality: left Osteomyelitis location: foot Osteomyelitis type: other acute Gangrene of toe of left foot I96 Acute kidney injury N17.9 History of pulmonary embolism Z86.711 Rheumatoid arthritis M06.9 Laterality: unspecified laterality Rheumatoid factor presence: unspecified presence COPD (chronic obstructive pulmonary disease) J44.9 COPD type: unspecified COPD GERD (gastroesophageal reflux disease) K21.9 Esophagitis presence: esophagitis presence not specified Hypertension I10 Depression F32.9 Depression Type: unspecified DM type 2 (diabetes mellitus, type 2) E11.65; Z79.4 Diabetes mellitus complication status: with hyperglycemia Diabetes mellitus detention insulin use: with detention use History of MRSA infection Z86.14 Podagra M10.9 Hypomagnesemia E83.42 (1) Rheumatoid arthritis Laterality: unspecified laterality Rheumatoid factor presence: unspecified presence (2) DM type 2 (diabetes mellitus, type 2) Diabetes mellitus complication status: with hyperglycemia Diabetes mellitus detention insulin use: with detention use Qualified Code(s): E11.65 - Type 2 diabetes mellitus with hyperglycemia; Z79.4 - termite treater helper (current) use of insulin (3) Depression Depression Type: unspecified Qualified Code(s): F32.9 - Major depressive disorder, single episode, unspecified (4) COPD (chronic obstructive pulmonary disease) COPD type: unspecified COPD Qualified Code(s): J44.9 - Chronic obstructive pulmonary disease, unspecified (5) GERD (gastroesophageal reflux disease) Esophagitis presence: esophagitis presence not specified Qualified Code(s): K21.9 - Gastro-esophageal reflux disease without esophagitis (6) Osteomyelitis Laterality: left Osteomyelitis location: foot Osteomyelitis type: other acute Qualified Code(s): M86.172 - Other acute osteomyelitis, left ankle and foot
[2021-05-09] MEDS: HYDROcodone/ACETAMINOPHEN 10/325 TAB PO PRN (19:42)
[2021-05-09] MEDS: INSULIN DETEMIR FLEXPEN/FLEX TOUCH 100 UNITS/ML 3ML SC SCH (21:01)
[2021-05-10] MEDS: PIPERACILLIN/TAZOBACTAM 4.5 GM in DEXTROSE 5% 100 ML IV SCH ×2 (00:58→07:53)
[2021-05-10] MEDS: HYDROcodone/ACETAMINOPHEN 10/325 TAB PO PRN ×3 (00:58→14:45)
[2021-05-10] MEDS: HYDROmorphone INJ 0.5 MG/0.5 ML SYR IV PRN ×2 (06:11→11:18)
--- NOTE | 2021-05-10 08:30 | Pharmacy Report ---
Pharmacy Glycemic Short Note 2 - Date of Service May 10, 2021 - Glycemic Short BSG Results (Last 24 hours): 05/09/21 05/09/21 05/09/21 07:35 11:58 17:09 Glucose 154 H POC Glucose 269 H 168 H 05/09/21 05/10/21 20:26 07:52 Glucose POC Glucose 198 H 173 H OUTPATIENT ANTIDIABETIC REGIMEN: * Levemir 64 units BID * Novolog /18 units with meals * metformin * glipizide ASSESSMENT: 05/10 * Patient received total of 101 units of insulin yesterday, of which 60 units were basal insulin * Fasting BSG 173 mg/dL - continue with Levemir 60 units at HS * BSGs moderately elevated yesterday, will plan to tighten CF/CR more today 05/08 * Pt NPO last evening for surgery today (Left toe amputation). Basal insulin dose reduced 20% in anticipation of NPO status. * BSGs well controlled on regimen while taking full PO. Will resume previous dosing after surgery once PO intake reestablished. * Goal is to maintain BSGs <200 (ideally <150) to prevent post op complications on top of current infection. 05/06 * Mr Cabrera is a 61 y/o M with a PMH of T2DM well controlled on insulin and two oral agents who presents with osteomyelitis. * Patient's BSGs yesterday were 202 mg/dL on admission and then 96 mg/dL at HS. * Patient received 84 units of basal insulin yesterday. * Fasting BSG was 122 mg/dL. Patient was NPO this morning so no additional basal given. * Based upon previous admissions, patient requires much less insulin inhouse. During last admission, patient received a basal rate of 75 units and was 85 mg/dL the next day. * Will aim for about 50-60 units of basal for right now since patient's BSGs were trending downwards today. 50 units presents a 25% reduction from last admission and a 50% reduction from home regimen of 180 units/day. * Novolog weight-based stress of 2 (also corresponded to Novolog utilized during last admission). PLAN FOR INPATIENT GLYCEMIC CONTROL: * Hold outpatient oral diabetes medications * Basal insulin * Lantus 50-60 units SQ HS (Lantus 50 units if BSG < 120 mg/dL; Lantus 60 units if BSG >/= 120 mg/dL) * Bolus insulin * NovoLog per scale ACHS or Q6hrs while NPO * Goal Range: Low 110 mg/dL - High 140 mg/dL * Correction Factor: 12 mg/dL/unit * Nutritional / Prandial insulin per carb ratio of 1 unit per 4 grams CHO consumed PLAN FOR DISCHARGE: * Patient's HbA1C is below goal * currently HbA1C is 6.6% * goal HbA1C would be less than 7% * Recommend continuing home regimen as long as patient is not suffering from hypoglycemia at home. * A1c may be affected by BRIAN, anemia. Best to use outpatient BSGs to guide outpatient therapy.
[2021-05-10] MEDS ORDERED: lisinopril 2.5 MG TAB PO SCH (09:00)
[2021-05-10] MEDS: GABAPENTIN 300 MG CAP PO SCH ×2 (09:47→13:40)
[2021-05-10] MEDS: TAMSULOSIN HCL 0.4 MG CAP PO SCH (09:47)
[2021-05-10] MEDS: PANTOprazole 40 MG TAB PO SCH (09:48)
[2021-05-10] MEDS: SERTRALINE HCL 100 MG TABLET PO SCH (09:48)
[2021-05-10] MEDS: amLODIPine BESYLATE 5 MG TAB PO SCH (09:48)
[2021-05-10] MEDS: SENNA 8.6 MG TAB PO SCH (09:48)
[2021-05-10] MEDS: POLYETHYLENE (MIRALAX) 17 GM PACK PO SCH (09:49)
[2021-05-10] MEDS: INSULIN ASPART PER UNIT SC SCH ×2 (09:53→12:44)
[2021-05-10] MEDS: DOCUSATE SODIUM 100 MG CAP PO SCH (09:53)
[2021-05-10] MEDS ORDERED: HEPARIN SOD 5,000 UNIT/0.5 ML VIAL SQ SCH (14:00)
--- NOTE | 2021-05-10 19:48 | Discharge Summary ---
Date of Service May 10, 2021 Admission HPI Per Admitting Provider Jose Cabrera is a 61 year old male with uncontrolled diabetes who presents to the ER with left foot ulcer. He reports chronic foot ulcers on both feet. However his left great toe started become increasingly red, swollen a month ago but much worse with purulent drainage in the last few days. He went to his PCP today who sent . He denies any fever or chills. He has diabetes with HbA1C 6.9 in July. He denies any prior history of heart attack or stroke. No known DVT or PAD. He reports left leg swelling for the last week. In the ER XR was concerning for osteomyelitis of his 1st great toe. He was started on Zosyn and Vancomycin (although vancomycin was discontinued and switched to daptomycin prior to being given). Principal Diagnosis Osteomyelitis/left foot infection Discharge Exam In general he is awake and alert pleasant no distress. HEENT normocephalic atraumatic mucous membranes moist. Breathing unlabored no accessory muscle use good effort. Skin shows no rashes no pallor or icterus. Left foot is dressed, no tracking erythema. Discharge Data Allergies Allergy/AdvReac Type Severity Reaction Status Date / Time No Known Allergies Allergy Verified 05/05/21 17:31 Consultations 05/05/21 17:28 ED Decision to Admit Stat 05/06/21 06:44 Consult Orthopedic Surgery Routine Procedures Performed Operation Date: 05/08/21 11:00 Actual Procedures p Left Great Toe amputation(Left) - Romario Villalpando MD Ordered Studies 05/05/21 17:27 US arterial duplex LE LT Stat 05/05/21 18:20 US venous doppler LE LT Stat 05/06/21 08:40 MRI Foot [MR foot LT wo/w con] Routine Hospital Course (1) Osteomyelitis: Left 1st toe phalanx osteomyelitis with cellulitis/gangrene of toe, and mild cellulitis of the dorsum of distal foot POD #2 - s/p left great toe amputation Wound culture from admission with pansensitive pseudomonas + MSSA Intra-op wound cx growing staph species - MSSA Was on Zosyn IVdiscussed with orthopedics, although all of the infected bone was removed, the infection was quite severe, and they recommended treating for a prolonged period of time. Given that he grew both Pseudomonas and MSSA on surface culture, will initiate treatment covering for both. Given that only the MSSA grew from the surgical specimens, it is likely that the Cipro course for Pseudomonas will be able to be shorter than the cephalexin for the MSSA. For now prescribed 4 weeks of bothbut truly the duration will be better determined by outpatient follow-up. If there are any questions, outpatient infectious disease input can also be sought. Patient stable for home. Outpatient wound care, and orthopedics follow-up Total Time Total Time Spent Total Time Spent (In Minutes): Less than 30 Discharge Plan Discharge Items Patient Disposition: Home - Self-Care Reason For Visit: INFECTION IN LET FOOT, DR REFERRED Discharge Diagnosis: foot infection Activity: Resume your previous activity Non-emergency contact: Primary Care Provider and Surgeon Call non-emergency contact if: you have any medication questions, your symptoms worsen, your pain is not controlled and you have a fever Follow-up/Referrals: Salina Benitez PA-C [Primary Care Provider] - 05/23/21 1:15 pm Diet: Carb Consistent or DM2 Addtl Attending Provider Instructions: foot infection -the foot infection got into the bone - fortunately Dr Villalpando was able to clear out all the bone that appears to have been infected. -despite a successful surgery, however, the area was ovearll quite badly infected and we should treat for a fairly long duration with antibiotics -the original culture from the toe showed two bacteria that can cause this kind of problem - pseudomonas and staph aureus. the cultures from the surgery just showed the staph. this more than likely means that the staph was the predominant cause of the problems, but because pseudomonas can be a pretty bad bacteria, we have to account for both -- with IV we have been able to reliably kill both with the same antibiotic - but the antibiotics we usually use for pseudomonas that come as a pill don't really reliably get rid of staph, and vice versa - so at least at first we'll have you on two different antibiotics at home (cipro for pseudomonas, and cephalexin for the staph). as you heal, it wouldn't surprise me if we can get rid of the cipro sooner (it does have more potential GI side effects, and can (very rarely) lead to connective tissue issues like tendon tears), but as things look right now we'll have to work off the expectation that we need to do antibiotics for 4-6 weeks ---cipro will be 500mg twice a day - take it with food. as above mentioned, while rare, it can cause issues making people more prone to tendonitis or even tendon tears/ruptures - so just take it fairly easy while you're on this antibiotic ---the cephalexin will be 500mg three times a day - it's usually really well tolerated; the main problem with it is simply remembering that middle of the day dose -- set an alarm//have the pills with you -- so that when you forget you can take it as quickly as you can when you remember. ---follow up with Dr Villalpando in the office in about 3 weeks; see your PCP next week for a recheck on how things are healing in the early berenice ---sometimes in situations like this they may need assistance from infectious disease docs, as you're following up, they can help arrange this if needed. Pending Studies at Discharge: No Stand-Alone Forms: [facility] Sm[facility] C[facility] Medications and DC Order Prescriptions: New hydrocodone-acetaminophen 10-325 mg Tablet 1 tab PO Q6H PRN (Reason: pain) Qty: 30 RF: 0 ciprofloxacin HCl 500 mg tablet 500 mg PO BID Qty: 60 RF: 0 cephalexin 500 mg capsule 500 mg PO TID Qty: 90 RF: 0 Continued metformin 1,000 mg tablet 1,000 mg PO BID RF: 0 omeprazole 20 mg capsule,delayed release(DR/EC) 20 mg PO QAM RF: 0 sertraline 100 mg tablet 100 mg PO BID RF: 0 glipizide 5 mg tablet extended release 24hr 5 mg PO QAM RF: 0 tamsulosin 0.4 mg capsule 0.4 mg PO QAM RF: 0 simvastatin 40 mg tablet 40 mg PO QPM RF: 0 sennosides [Senokot] 8.6 mg Tablet 8.6 mg PO DAILY RF: 0 insulin glargine 100 unit/mL Solution 60 unit SUBCUT BID RF: 0 lidocaine 4 % Adhesive Patch,Medicated 1 patch TOPICAL DAILY PRN (Reason: Pain) RF: 0 insulin aspart U-100 100 unit/mL Solution 1 sliding scale dose SUBCUT USEASDIRECTD RF: 0 docusate sodium 100 mg Capsule 100 mg PO BID RF: 0 gabapentin 300 mg Capsule 300 mg PO TID RF: 0 polyethylene glycol 3350 [Miralax] 17 gram/dose Powder 17 g PO DAILY RF: 0 lisinopril 2.5 mg tablet 2.5 mg PO DAILY RF: 0 cyclobenzaprine 5 mg Tablet 5 mg PO TID PRN (Reason: MUSCLE SPASMS) RF: 0 amlodipine 5 mg tablet 5 mg PO QAM RF: 0 multivitamin Tablet 1 tab PO QAM RF: 0 Discharge Orders: Discharge Order (Routine); Ordered 05/10/21 Ordered By: Shai Levin/Other Patient Handouts: Managing Type 2 Diabetes, Special Foot [facility] for Diabetes Admission Data Admit Date/Time: 05/05/21 18:23 Attending Provider: Shai Ashley Admit Provider: Bernardo Ryan Primary Care Provider: Salina Benitez Other Providers: Mikael Herndon ; Bernardo Ryan ; Jensen Pérez ; Bernardo Small ; Carlos Cisneros [facility] Other Interventions: Discharge Summary Assessment (RN) Last Done: 05/10/21 14:52 Coding Level of Care Code D/C DAY MANAGEMENT <30 MINS Diagnoses Osteomyelitis M86.172 Laterality: left Osteomyelitis location: foot Osteomyelitis type: other acute
== END 2021-05-10 15:17 | disposition home health service (06) | DRG 617 ==
LOC: ED 14:56 → SUATTDRO 18:23 → EDINP 18:23 → 3N 05-06 00:12